=== PATIENT | female | born 1975 | race Caucasian/White ===

== ENCOUNTER 2022-03-01 16:37 | Emergency (ER) | payer OTHER ==
[2022-03-01] MEDS ORDERED: HYDROCODONE/APAP 7.5/325 MG TAB ONE (19:02)
[2022-03-01] MEDS ORDERED: IBUPROFEN 400 MG TAB ONE (19:02)
--- NOTE | 2022-03-01 19:15 | EDPHYS ---
Physician Documentation [facility] Name: Anya Mann Age: 46 yrs Sex: Female : 1975 Arrival Date: 03/01/2022 Time: 16:46 Bed 15 Private MD: ED Physician Odalis Lea HPI: 03/01 18:45 This 46 yrs old Female presents to ER via Wheelchair with complaints of Left Knee Pain. cp 18:45 The patient presents with pain, that is acute. The complaints affect the left knee. cp 18:45 Context: resulted from an unknown cause, the patient is not able to bear weight, must cp have assistance, Problem is a result from a previous injury: No. Onset: The symptoms/episode began/occurred today. 18:45 Associated signs and symptoms: Pertinent positives: felt a "pop". Treatment prior to cp arrival includes: no previous treatment. Patient reports she has been dealing with right knee pain and is scheduled to have surgery for torn meniscus in right knee. 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 - Social history:: Smoking status: Patient denies any tobacco usage or history of. ROS: 18:50 MS/extremity: Positive for pain, swelling, tenderness, of the left knee, painful ROM, cp Negative for deformity, paresthesias. 18:50 Constitutional: Negative for body aches, chills, fever, poor PO intake. cp 18:50 Respiratory: Negative for cough, shortness of breath, wheezing. 18:50 Abdomen/GI: Negative for abdominal pain, nausea, vomiting, and diarrhea. Exam: 18:55 Constitutional: The patient appears in no acute distress, alert, awake, cp non-diaphoretic, non-toxic, well developed, well nourished, overweight 18:55 Head/Face: Normocephalic, atraumatic. cp 18:55 Neck: ROM/movement: is normal, is supple, without pain, no range of motions limitations. 18:55 Cardiovascular: Rate: tachycardic. 18:55 Respiratory: the patient does not display signs of respiratory distress, Respirations: normal, no use of accessory muscles, labored breathing, is not present. 18:55 Abdomen/GI: Exam negative for discomfort, distension, guarding, Inspection: obese 18:55 Back: pain, is absent, ROM is normal. 18:55 Musculoskeletal/extremity: Extremities: noted in the left knee: pain, swelling, tenderness, ROM: limited passive range of motion due to pain, in the left knee, Perfusion: the extremity is normally perfused throughout, the left leg Sensation intact. DVT Exam: no swelling, no tenderness, negative Homans' sign noted on exam, no appreciated bluish discoloration, no erythema, no increased warmth. Vital Signs: 17:27 BP 138 / 89; Pulse 100; Resp 16; Temp 99.3(TE); Pulse Ox 100% ; Weight 103.87 kg; vg1 Height 5 ft. 3 in. (160.02 cm); Pain 10/10; 19:27 BP 142 / 86; Pulse 88; Resp 17 S; Pulse Ox 100% on R/A; lg3 17:27 Body Mass Index 40.56 (103.87 kg, 160.02 cm) vg1 Procedures: 19:20 Splinting: Splint applied to left knee using knee immobilizer, applied by nurse. cp Examined by me, post splint application: neurovascular intact, Patient tolerated well. MDM: 18:41 Patient medically screened. cp 19:03 Test interpretation: by ED physician or midlevel provider: xrays of left knee negative cp for fracture. 19:14 Data reviewed: vital signs, nurses notes, radiologic studies, plain films. cp 19:14 Differential diagnosis: dislocation, closed fracture, tendonitis. Counseling: I had a cp detailed discussion with the patient and/or guardian regarding: the historical points, exam findings, and any diagnostic results supporting the discharge/admit diagnosis, radiology results, the need for outpatient follow up, for definitive care, a orthopedic surgeon, to return to the emergency department if symptoms worsen or persist or if there are any questions or concerns that arise at home. Response to treatment: the patient's symptoms have mildly improved after treatment, and as a result, I will discharge patient. 03/01 17:33 Order name: Knee Left 3 View XRAY pm1 03/01 18:51 Order name: Knee Immobilizer; Complete Time: 19:21 cp 03/01 19:08 Order name: Crutches; Complete Time: 19:21 cp Administered Medications: 19:07 Not Given (Patient Refused): Hydrocodone-Acetaminophen (7.5 mg-325 mg) 1 tabs PO once [facility] 19:07 Drug: Ibuprofen 800 mg Route: PO; [facility] Disposition Summary: 03/01/22 19:14 Discharge Ordered Location: Home cp Problem: new cp Symptoms: have improved cp Condition: Stable cp Diagnosis - Pain in left knee cp Followup: cp - With: Madi Gaytan MD - When: 2 - 3 days - Reason: Recheck today's complaints Discharge Instructions: - Discharge Summary Sheet cp - Elastic Bandage and RICE Therapy cp - How to Use a Knee Immobilizer cp - Acute Knee Pain, Adult cp Forms: - Medication Reconciliation Form cp - Thank You Letter cp - Antibiotic Education cp - Prescription Opioid Use cp Prescriptions: - Diclofenac Sodium 75 mg Oral Tablet Sustained Release - take 1 tablet by ORAL route 2 times per day; 30 tablet; Refills: 0, Product cp Selection Permitted Signatures: Dispatcher [employer] EDMS Ab Diez PA PA cp Amber Altman, RN RN vg1 Therese Strong RN RN jh6 Corrections: (The following items were deleted from the chart) 03/02 19:06 03/01 18:45 This 46 yrs old Female presents to ER via Wheelchair with complaints of cp Knee Injury, - right. cp
--- NOTE | 2022-03-01 19:15 | ER ---
Nurse's Notes [facility] Name: Anya Mann Age: 46 yrs Sex: Female : 1975 Arrival Date: 03/01/2022 Time: 16:46 Bed 15 Private MD: Diagnosis: Pain in left knee Presentation: 03/01 17:27 Chief complaint: Patient states: Left knee pain that began about an hour ago and heard vg1 a pop; states currently has a torn meniscus in RIGHT knee and has been putting all weight on Left. Coronavirus screen: Vaccine status: Patient reports receiving the 1st dose of the Covid vaccine. Client denies travel out of the [place] in the last 14 days. Ebola Screen: Patient denies exposure to infectious person. Patient denies travel to an Ebola-affected area in the 21 days before illness onset. Initial Sepsis Screen: Does the patient meet any 2 criteria?. Initial Sepsis Screen: Does the patient have a suspected source of infection? No. Patient's initial sepsis screen is negative. Risk Assessment: Do you want to hurt yourself or someone else? Patient reports no desire to harm self or others. Onset of symptoms was March 01, 2022. 17:27 Method Of Arrival: Wheelchair vg1 17:27 Acuity: KIM 4 vg1 Triage Assessment: 17:29 General: Appears uncomfortable, Behavior is calm, cooperative. Pain: Complains of pain vg1 in left knee Pain currently is 10 out of 10 on a pain scale. Musculoskeletal: Range of motion: limited in left knee. 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 - Social history:: Smoking status: Patient denies any tobacco usage or history of. Screenin:48 Abuse screen: Denies threats or abuse. Denies injuries from another. Nutritional jh6 screening: No deficits noted. Tuberculosis screening: No symptoms or risk factors identified. Fall Risk Gait- Impaired (20 pts.). Assessment: 18:46 General: Appears in no apparent distress. uncomfortable, Behavior is calm, cooperative. jh6 18:46 Pain: Complains of pain in left knee Pain currently is 6 out of 10 on a pain scale. jh6 Quality of pain is described as burning, sharp, Pain began suddenly, 2 hours ago. Is continuous, Alleviated by rest, relaxation, Aggravated by increased activity, repositioning, Also complains of inability to perform activities of daily living. Musculoskeletal: Circulation, motion, and sensation intact. Capillary refill < 3 seconds, Range of motion: limited in left knee and right knee Swelling present in right knee Reports pain in right leg. 19:27 Reassessment: Patient appears in no apparent distress at this time. No changes from lg3 previously documented assessment. Patient and/or family updated on plan of care and expected duration. Pain level reassessed. Patient is alert, oriented x 3, equal unlabored respirations, skin warm/dry/pink. Vital Signs: 17:27 BP 138 / 89; Pulse 100; Resp 16; Temp 99.3(TE); Pulse Ox 100% ; Weight 103.87 kg; vg1 Height 5 ft. 3 in. (160.02 cm); Pain 10/10; 19:27 BP 142 / 86; Pulse 88; Resp 17 S; Pulse Ox 100% on R/A; lg3 17:27 Body Mass Index 40.56 (103.87 kg, 160.02 cm) vg1 ED Course: 16:46 Patient arrived in ED. bp1 17:04 Ab Diez PA is PHCP. cp 17:04 Odalis Lea MD is Attending Physician. cp 17:29 Triage completed. vg1 17:29 Arm band placed on. vg1 18:10 No provider procedures requiring assistance completed. jh6 18:40 Therese Strogn, JANETTE is Primary Nurse. jh6 18:44 Knee Left 3 View XRAY In Process Unspecified. EDMS 18:51 Call light in reach. Adult w/ patient. jh6 19:14 Madi Gaytan MD is Referral Physician. cp 19:27 Patient did not have IV access during this emergency room visit. lg3 Administered Medications: 19:07 Not Given (Patient Refused): Hydrocodone-Acetaminophen (7.5 mg-325 mg) 1 tabs PO once 6 19:07 Drug: Ibuprofen 800 mg Route: PO; jh6 Medication: 19:27 VIS not applicable for this client. lg3 Outcome: 19:14 Discharge ordered by . cp 19:26 Discharged to home via wheelchair, with crutches, with significant other. lg3 19:26 Condition: stable 19:26 Discharge instructions given to patient, Instructed on discharge instructions, follow up and referral plans. medication usage, Demonstrated understanding of instructions, follow-up care, medications, Prescriptions given X 1. 19:43 Patient left the ED. mw2 Signatures: Dispatcher [employer] EDMS Ab Diez PA PA cp Elmer Frausto mw2 Taryn Valerio, RN RN lg3 Amber Altman, RN RN 1 Eleni Post Jennifer, RN RN jh6 Corrections: (The following items were deleted from the chart) 18:48 18:46 General: Appears in no apparent distress. uncomfortable, Behavior is calm, jh6 cooperative, 6
--- NOTE | 2022-03-01 19:39 | RAD REPORT ---
EXAM DESCRIPTION: RAD - Knee Left 3 View - 03/01/2022 6:43 pm CLINICAL HISTORY: PAIN COMPARISON: No comparisons FINDINGS: No fracture, dislocation or periosteal reaction.No joint effusion seen. No joint space gabriel rowing. Mild spurring seen along the superior articular margin of the patella. No soft tissue abnorma lity. IMPRESSION: Negative left knee for acute bone or joint finding. Clinical concerns for internal derangement or occult bony injury could be further assessed with MR im aging.
[2022-03-01 20:12] VITALS: TEMP 99.3; O2SAT 100
[2022-03-01 20:13] VITALS: BP 142/86
== END 2022-03-01 19:43 | disposition home or self-care (01) ==
LOC: ER 16:37
DX: M25.562 Pain in left knee (principal); X58.XXXA Exposure to other specified factors, initial encounter; Z88.1 Allergy status to other antibiotic agents; Z91.013 Allergy to seafood; Z91.09 Other allergy status, other than to drugs and biological substances
CPT/HCPCS: 99283

== ENCOUNTER 2022-03-19 06:00 | Day surgery (SDC) | payer OTHER ==
[2022-03-16 13:22] LABS: Absolute Lymphocytes (CBC) 3.2 K/uL (0.7-4.9); Hematocrit 37.6 % (36.0-45.0); Lymphocytes % 26.2 % (15.3-44.8); MPV 8.9 fL (7.6-11.3); RBC Red Blood Cell Count 4.48 M/uL (3.86-4.86)
[2022-03-16 13:54] LABS: Potassium 3.5 mmol/L (3.5-5.1)
[2022-03-16 14:25] LABS: SARS-CoV-2 Antigen Rapid Res Negative (Negative)
[2022-03-19] MEDS ORDERED: CLINDAMYCIN 900MG/D5W 900 MG/50 ML IVPB IV ONE (06:13)
[2022-03-19] MEDS ORDERED: Ringers Lactate 1,000 ML IV ONE (06:13)
[2022-03-19] MEDS ORDERED: BUPIVACA 0.5%/EPI 0.0005%/PF 30 ML VIAL ONE (06:31)
[2022-03-19] MEDS ORDERED: NA CIT/CITRIC AC 30 ML ORAL UDC ONE (06:54)
[2022-03-19] MEDS ORDERED: MIDAZOLAM HCL 2 MG/2 ML INJ ONE (06:54)
[2022-03-19] MEDS ORDERED: ONDANSETRON 4 MG/2 ML VIAL ONE (06:54)
[2022-03-19] MEDS ORDERED: FENTANYL CITR 100 MCG/2 ML ONE ×2 (06:54→07:44)
[2022-03-19] MEDS ORDERED: propofoL 200 MG/20 ML VIAL IV ONE (06:54)
[2022-03-19] MEDS ORDERED: LIDOCAINE 2% MPF 5 ML VIAL ONE (06:54)
[2022-03-19] MEDS ORDERED: dexAMETHasone 10 MG/ML VIAL ONE (07:26)
[2022-03-19] MEDS ORDERED: KETOROLAC 30 MG/ML INJ ONE (07:27)
[2022-03-19] MEDS ORDERED: HYDROCODONE/APAP 10/325 TAB ONE (09:43)
[2022-03-19 09:46] VITALS: BP 123/76; TEMP 96.9; O2SAT 98
--- NOTE | 2022-03-19 09:47 | OP ---
Date of Procedure: 03/19/2022 Surgeon: Madi Gaytan MD Preoperative Diagnosis: Right knee pain with mechanical symptoms, probable meniscal tear. 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 3.Tear of the medial meniscus. 4.Abundant synovial tissue within the notch. Procedure: Right knee arthroscopy with debridement of medial meniscal tear and debridement of abunda nt synovial tissue within the notch. Estimated Blood Loss: Less than 10 cc. Complications: There were no complications. Pathology Specimens: No pathology specimens sent. Indications For Operation: Ms. Mann is a patient. I have been seeing for some time for her right knee. She has an MRI of her right knee, which demonstrates a meniscal tear and suffering from mechan ical type symptoms as well as continued pain despite conservative management. She was scheduled for surgery, but unfortunately fell onto her left side. She had an MRI ordered by another physician afte r that and it does show that she has a meniscal tear on that side as well, as well as recent injury, now having both knees being a problem. Decision was made to proceed with a left knee injection in th e office to allow for more easy recovery from her previously planned right knee arthroscopy. Risks, benefits, and alternatives to right knee arthroscopy were discussed with the patient including the po ssibility that she may have continued symptoms from arthritic changes as arthroscopic management is n ot good for degenerative chondral lesions; however, we would attempt to address mechanical symptoms a s well as the tear seen on MRI or any other pathology amenable to arthroscopic intervention. She say s she understands things as presented and wished to proceed. Description Of Procedure: The patient was taken to the operating room and placed in supine position. General anesthesia was obtained by staff. Following this, a well-padded tourniquet was placed on s uperior right thigh; however, was not used throughout the case. Following this, a standard superomed ial arthroscopy portal was then placed with liberation of approximately 20 cc of rather normal-appear ing synovial fluid. This was followed by placement of an inferolateral arthroscopy portal and the ar throscopic camera was placed within the joint atraumatically with 1 pass. The knee was then sequenti ally examined including the suprapatellar pouch, medial and lateral gutters, the medial compartment a s well as the notch and patellofemoral joint. Pertinent findings included grade 3 to 4 chondromalaci a of the patella with no obviously unstable flaps. Also seen, there was a grade 3 chondromalacia of the medial compartment. Also seen is a medial meniscal tear. There is abundant synovial tissue with in the notch. Following this, a standard inferomedial arthroscopy portal was then performed using a needle for localization to allow for a good purchase of both the notch as well as the medial meniscus . The medial meniscus was then debrided back to a firm hook stable, well contoured base. This was f ollowed by placement of debridement of the abundant synovial tissue within the notch. The lateral co mpartment was again investigated. Other than some very tiny fraying, there was no obvious pathology of the lateral compartment. Following this, the inferior arthroscopy portals are then stapled shut a nd the superomedial arthroscopy portal was then used to place a marking and this was then stapled. F ollowing this, she was placed in a well-padded sterile dressing, awakened, and taken to recovery in g ood condition. There were no complications. SE/MODL Voice ID: [id number] Report ID: [id number]
== END 2022-03-19 09:42 | disposition home or self-care (01) ==
LOC: OR 06:00
PROVIDERS: ATTEND Orthopaedic Surgery
PROC: 0SBC4ZZ Excision of Right Knee Joint, Percutaneous Endoscopic Approach (ICD-10-PCS; 2022-03-19)
PROC: 0SQC4ZZ Repair Right Knee Joint, Percutaneous Endoscopic Approach (ICD-10-PCS; principal; 2022-03-19 07:00)
DX: S83.241A Other tear of medial meniscus, current injury, right knee, initial encounter (principal); M25.561 Pain in right knee; M22.41 Chondromalacia patellae, right knee; Z20.822 Contact with and (suspected) exposure to COVID-19
CPT/HCPCS: 29882; 29875; 85025; 80048; 36415; 81025; 87811; J2704; J2250; J3010 ×2; J1100; J7120; J2405

== ENCOUNTER 2022-05-21 06:08 | Day surgery (SDC) | payer OTHER ==
[2022-05-18 15:11] LABS: Absolute Lymphocytes (CBC) 3.4 K/uL (0.7-4.9); Hematocrit 36.5 % (36.0-45.0); Lymphocytes % 22.3 % (15.3-44.8); MCV 84.1 fL (80-100); MPV 8.8 fL (7.6-11.3); RBC Red Blood Cell Count 4.34 M/uL (3.86-4.86)
[2022-05-18 15:58] LABS: SARS-CoV-2 Antigen Rapid Res Negative (Negative)
[2022-05-21] MEDS ORDERED: Ringers Lactate 1,000 ML IV ONE (06:39)
[2022-05-21] MEDS ORDERED: MIDAZOLAM HCL 2 MG/2 ML INJ ONE (06:48)
[2022-05-21] MEDS ORDERED: propofoL 200 MG/20 ML VIAL IV ONE (06:48)
[2022-05-21] MEDS ORDERED: FENTANYL CITR 100 MCG/2 ML ONE ×2 (06:48→07:31)
[2022-05-21] MEDS ORDERED: LIDOCAINE 1% MPF 5 ML VIAL ONE (06:48)
[2022-05-21] MEDS ORDERED: CLINDAMYCIN 900MG/D5W 900 MG/50 ML IVPB IV ONE (07:12)
[2022-05-21] MEDS ORDERED: dexAMETHasone 10 MG/ML VIAL ONE (07:32)
[2022-05-21] MEDS ORDERED: KETOROLAC 30 MG/ML INJ ONE (07:32)
[2022-05-21] MEDS ORDERED: ONDANSETRON 4 MG/2 ML VIAL ONE (07:33)
[2022-05-21] MEDS ORDERED: ALBUTEROL 2.5 MG/3 ML NEB SOL ONE (08:49)
[2022-05-21] MEDS ORDERED: CODEINE 30MG/APAP 300MG TAB ONE (09:37)
[2022-05-21 09:54] VITALS: BP 96/78; TEMP 97.4; O2SAT 100
--- NOTE | 2022-05-21 21:07 | OP ---
Date of Procedure: 05/21/2022 Surgeon: Madi Gaytan MD Preoperative Diagnosis: Left knee pain with mechanical symptoms, possible meniscal tear or tears. Postoperative Diagnoses: 1.Grade 3 chondromalacia of the medial compartment. 2.Grade 3 chondromalacia of the patellofemoral joint. 3.Tear of the posterior aspect of the medial meniscus. Procedure: Left knee arthroscopy with debridement of medial meniscal tear. Estimated Blood Loss: Less than 10 cc. Complications: There were no complications. Specimen: There were no pathology specimen sent. Indications For Operation: Ms. Mann is a 46-year-old female who unfortunately injured her left kne e. She has had continued pain and problems since that time accompanied by swelling and mechanical sy mptoms. She has had imaging, which demonstrated a probable meniscal tear and risks, benefits, and al ternatives of different methods of treating this have been discussed. She has been undergoing quite a bit of conservative management without relief. All of her questions have been answered today. Description Of Procedure: Patient was taken to the operating room and placed in the supine position. General anesthesia was obtained by staff. Following this, well-padded tourniquet was placed on sup erior left thigh; however, it was not used throughout the case. Left lower extremity was then preppe d and draped in usual fashion for procedure. Following this, a standard superior and medial arthrosc opy portal was then performed with liberation of approximately 60 cc of rather normal-appearing synov ial fluid. This followed by placement of inferolateral arthroscopy portal, which I made atraumatical ly with 1 pass. The knee was then sequentially examined through the suprapatellar pouch, medial and lateral gutters, medial and lateral compartments as well as notch of patellofemoral joint. Pertinent findings included significant synovial proliferation throughout and also with synovial proliferation within the joint. Also, seen is a grade 3 chondromalacia of the medial femoral condyle as well as m edial tibial plateau and grade 3 chondromalacia of the patellofemoral joint. The medial meniscus ashley eared to be intact until visualizing the very far aspect posteriorly. This did appear to be a tear, which appears to have mostly to be nondisplaceable, however, a standard medial arthroscopy portal was then performed using a needle for localization. We were able to probe this. There was a small nub, which did have some radial aspect, did not appear to be repairable and a combination of hand instrum ents and shaver were used to debride this back to a firm hook stable base. There may still be a smal l amount of meniscal changes posteriorly, however, definitely it was well contoured and we cannot dis place it. Attention was then turned to the lateral compartment where there was some very mild frayin g, which was touched up slightly, but no tear when palpated throughout with probe. Attention was the n turned back to the notch and a small amount of synovial tissue was removed from within the notch wh ich may be causing impingement with full extension. The ACL appears intact without damage. The knee was again examined and all above areas with no further pathology seen, which was amenable to arthros copic intervention. The inferior arthroscopy portals were then stapled shut. The superior medial ar throscopy portal was used for placement of Marcaine and this was then stapled. Patient was placed in a well-padded sterile dressing, awakened, and taken to recovery room in good condition. There were no complications. SE/MODL Voice ID: [id number] Report ID: [id number]
== END 2022-05-21 09:49 | disposition home or self-care (01) ==
LOC: OR 06:08
PROVIDERS: ATTEND Orthopaedic Surgery
PROC: 0SBD4ZZ Excision of Left Knee Joint, Percutaneous Endoscopic Approach (ICD-10-PCS; principal; 2022-05-21 07:00)
DX: S83.242A Other tear of medial meniscus, current injury, left knee, initial encounter (principal); M22.42 Chondromalacia patellae, left knee; Z20.822 Contact with and (suspected) exposure to COVID-19
CPT/HCPCS: 85025; 36415; 87811; 29877; J2704; J2001; J2250; J3010 ×2; J1100; J7120; J2405

== ENCOUNTER 2023-05-21 10:25 | Day surgery (SDC) | payer OTHER ==
[2023-05-18 11:26] LABS: Absolute Lymphocytes (CBC) 2.5 K/uL (0.7-4.9); Hematocrit 32.6 % (36.0-45.0); Lymphocytes % 26.3 % (15.3-44.8); MCV 81.1 fL (80-100); MPV 8.8 fL (7.6-11.3); Platelets 260 thou/uL (152-406); RBC Red Blood Cell Count 4.03 M/uL (3.86-4.86)
[2023-05-18 11:46] LABS: Potassium 3.4 mEq/L (3.5-5.1)
--- NOTE | 2023-05-19 14:58 | EKG ---
Test Date: 2023-05-18 Test Time: 11:11:37 Audiology Director: TOMY MEASUREMENT RESULTS: Intervals: Rate: 62 IA: 178 QRSD: 92 QT: 426 QTc: 432 [place]: P: 65 IA: 178 QRS: 42 T: 51 INTERPRETIVE STATEMENTS: Normal sinus rhythm Normal ECG Compared to ECG 01/29/2012 18:38:28 No significant changes Electronically Signed On 05-19-23 14:54:37 CDT by Jesús Martinez
[2023-05-21] MEDS ORDERED: Ringers Lactate 1,000 ML IV ONE (10:54)
[2023-05-21] MEDS ORDERED: MIDAZOLAM HCL 2 MG/2 ML INJ ONE (11:20)
[2023-05-21] MEDS ORDERED: propofoL 200 MG/20 ML VIAL IV ONE (11:20)
[2023-05-21] MEDS ORDERED: KETOROLAC 30 MG/ML INJ ONE (11:21)
[2023-05-21] MEDS ORDERED: LIDOCAINE 2% MPF 5 ML VIAL ONE (11:21)
[2023-05-21] MEDS ORDERED: FENTANYL CITR 100 MCG/2 ML ONE (11:21)
[2023-05-21] MEDS ORDERED: dexAMETHasone 10 MG/ML VIAL ONE (11:21)
[2023-05-21] MEDS ORDERED: ONDANSETRON 4 MG/2 ML VIAL ONE (11:22)
[2023-05-21] MEDS ORDERED: GLYCOPYRROLATE 0.2 MG/ML SYR ONE (11:58)
[2023-05-21] MEDS ORDERED: EPHEDRINE SULF 50 MG/ML VIAL ONE (11:59)
[2023-05-21] MEDS ORDERED: ESMOLOL HCL 0 ML IV ONE (12:01)
[2023-05-21 12:41] VITALS: O2SAT 97
--- NOTE | 2023-05-21 13:06 | OP ---
Surgeon: Madi Gaytan MD Preoperative Diagnosis: Right carpal tunnel syndrome. Postoperative Diagnosis: Right carpal tunnel syndrome. Procedure: Right open carpal tunnel release. Estimated Blood Loss: Less than 3 cc. Complications: There were no complications. Specimen: No pathology specimen sent. Indications For Operation: Ms. Mann is a patient who unfortunately suffered from symptoms related to carpal tunnel syndrome, which has been diagnosed by history and physical and NCV. Risks, benefits , and alternatives to different methods of treating this were discussed with the patient. She states she understands things as presented and wishes to proceed. Description Of Procedure: Patient was taken to the operating room and placed in supine position. Ge neral anesthesia was obtained by staff. Following this, a well-padded tourniquet was placed on super ior right arm. Right upper extremity was then prepped and draped in the usual sterile fashion for th e procedure. Following this, a standard incision was made which parallels the thenar crease with sli ght ulnar deviation of the most distal wrist crease. This was taken down carefully through skin only . Meticulous hemostasis being maintained using bipolar electrocautery. This leads to the palmar fas merrick, which was then divided longitudinally. Any obstructions of the transverse carpal ligament were then gently swept to the side and a small miri was made in the transverse carpal ligament which allow ed for visualization of the underlying nerve and carpal tunnel structures. This was then divided in a proximal to distal direction until there were no constricting bands. It was then divided in a dist al to proximal direction until there were no constricting bands. At no time were any sharp instrumen ts placed outside the direct operative field. At conclusion of the case, the nerve appeared to be in continuity. The tourniquet was then dropped. There was found to be no significant bleeding. Any b leeding there was, was controlled with bipolar electrocautery. This was followed by closure with a n ylon suture. She was placed in a well-padded sterile dressing, awakened, and taken to recovery room in good condition. /MODL Voice ID: [id number] Report ID: [id number]
[2023-05-21 13:16] VITALS: BP 127/81; TEMP 98.9
== END 2023-05-21 13:29 | disposition home or self-care (01) ==
LOC: OR 10:25
PROVIDERS: ATTEND Orthopaedic Surgery
PROC: 01N50ZZ Release Median Nerve, Open Approach (ICD-10-PCS; principal; 2023-05-21 11:30)
DX: G56.01 Carpal tunnel syndrome, right upper limb (principal); M25.541 Pain in joints of right hand
CPT/HCPCS: 93005; 85025; 80048; 36415; 64721; J2704; J2001; J2250; J3010; J1100; J2405; J7120

== ENCOUNTER 2023-06-28 10:50 | Emergency (ER) | payer OTHER ==
--- OUTSIDE RECORDS SUMMARY | 2023-06-28 10:57 | XMS REPORT | Continuity of Care Document ---
:1975 Author Organization [facility] t Address [address] [facility] [address] [place] [address] Care Team Providers Name Role Phone Kamilah Minayajulio Holley Primary Care Physician Zaheer Boss MD Attending Clinician [email or web address] Attending Clinician Unavailable Mechelle Sánchez Attending Clinician Unavailable LUISITO HANSON Attending Clinician Unavailable Doctor Unassigned, [place] Attending Clinician Unavailable ZAHEER BOSS Attending Clinician Unavailable ZAHEER BOSS Attending Clinician Unavailable Lab, Ang - Db Attending Clinician Unavailable HUBERT ALONSO Attending Clinician Unavailable Hubert Alonso MD Attending Clinician Alejandra Fall Attending Clinician ALEJANDRA HERNANDEZ Attending Clinician Unavailable [email or web address] Admitting Clinician Unavailable Mechelle Sánchez Admitting Clinician Unavailable ZAHEER BOSS Admitting Clinician Unavailable Payers Payer Name Policy Type Policy Number Effective Date Expiration Date [facility] [id number] 2022 CHOICE (HMO) 00:00:00 Problems Condition Condition Condition Status Onset Resolution Last Treating Co mments Source Name Details Category Date Date Treatment Clinician Date No known No known Disease Unive rs active active ity of problems problems [facility] Allergies, Adverse Reactions, Alerts Allergy Allergy Status Severity Reaction(s) Onset Inactive Treating Comm ents Source Name Type Date Date Clinician amoxicil DA Active U [facility] latia 6-30 [place] 00:00: d 00 [facility] IODINE DRUG Active Hives Univers INGREDI 8-31 ity of 00:00: [place] 00 [facility] Iodine Propensi Active Hives 0 Univers ty to 8-31 ity of adverse 00:00: [place] reaction 00 Medical s [place] AMOXICIL DRUG Active Hives 0 Univers LATIA INGREDI 4-25 ity of 00:00: [place] 00 Medical [place] Amoxicil Propensi Active Hives 0 Univer s latia ty to 4-25 ity of adverse 00:00: [place] reaction 00 Medical s [place] NO KNOWN Drug Active Univers ALLERGIE Class ity of S [facility] Social History Social Habit Start Date Stop Date Quantity Comments Source Gender identity Universit y of [facility] Sexual orientation Univer sity of [facility] Exposure to 2023-02-06 2023-02-16 Not sure [facility] SARS-CoV-2 (event) 00:00:00 06:22:00 [facility] Alcohol intake 2022-12-15 2022-12-15 Ex-drinker [facility] 00:00:00 00:00:00 (finding) [facility] History of Social 2022-11-06 2022-11-06 Univers ity of function 00:00:00 00:00:00 [facility] Tobacco use and 2022-05-06 2022-05-06 Smokeless Universit y of exposure 00:00:00 00:00:00 tobacco non-user [facility] Sex Assigned At [birth year] Universit y of 00:00:00 00:00:00 [facility] Smoking Status Start Date Stop Date Source Tobacco [facility] Medications Ordered Filled Start Stop Current Ordering Indication Dosage Frequency Signature Comments Components Source Medication Medication Date Date Medication? Clinician (SIG) Name Name cyclobenzap 2023-0 Yes 5mg Take 1 Univ ers rine 5 mg 6-13 tablet by ity o f tablet 10:20: mouth in [place] [address] the Medical morning. Branch cyclobenzap 2023-0 Yes 5mg Take 1 Univ ers rine 5 mg 6-13 tablet by ity o f tablet 10:20: mouth in [place] [address] the Medical morning. Branch cyclobenzap 2023-0 Yes 5mg Take 1 Univ ers rine 5 mg 6-13 tablet by ity o f tablet 10:20: mouth in [place] [address] the Medical morning. Branch cyclobenzap 2023-0 Yes 5mg Take 1 Univ ers rine 5 mg 6-13 tablet by ity o f tablet 10:20: mouth in [place] [address] the Medical morning. Branch cyclobenzap 2023-0 Yes 5mg Take 1 Univ ers rine 5 mg 6-13 tablet by ity o f tablet 10:20: mouth in [place] [address] the Medical morning. Branch cyclobenzap 2023-0 Yes 5mg Take 1 Univ ers rine 5 mg 6-13 tablet by ity o f tablet 10:20: mouth in [place] [address] the Medical morning. Branch cyclobenzap 2023-0 Yes 5mg Take 1 Univ ers rine 5 mg 6-13 tablet by ity o f tablet 10:20: mouth in [place] [address] the Medical morning. Branch cyclobenzap 2023-0 Yes 5mg Take 1 Univ ers rine 5 mg 6-13 tablet by ity o f tablet 10:20: mouth in [place] [address] the Medical morning. Branch gabapentin 2023-0 Yes [id number] 300mg Take 1 Univers 300 mg 6-13 capsule by ity of capsule 00:00: mouth in [place] [address] the Medical morning Branch and 1 capsule at noon and 1 capsule in the evening. gabapentin 2023-0 Yes [id number] 300mg Take 1 Univers 300 mg 6-13 capsule by ity of capsule 00:00: mouth in [address] morning [place] and 1 capsule at noon and 1 capsule in the evening. gabapentin 2023-0 Yes [id number] 300mg Take 1 Univers 300 mg 6-13 capsule by ity of capsule 00:00: mouth in [address] and 1 capsule at noon and 1 capsule in the evening. gabapentin 2023-0 Yes [id number] 300mg Take 1 Univers 300 mg 6-13 capsule by ity of capsule 00:00: mouth in [address] and 1 capsule at noon and 1 capsule in the evening. gabapentin 2023-0 Yes [id number] 300mg Take 1 Univers 300 mg 6-13 capsule by ity of capsule 00:00: mouth in [address] and 1 capsule at noon and 1 capsule in the evening. gabapentin 2023-0 Yes [id number] 300mg Take 1 Univers 300 mg 6-13 capsule by ity of capsule 00:00: mouth in [address] and 1 capsule at noon and 1 capsule in the evening. gabapentin 2023-0 Yes [id number] 300mg Take 1 Univers 300 mg 6-13 capsule by ity of capsule 00:00: mouth in [address] and 1 capsule at noon and 1 capsule in the evening. gabapentin 2023-0 Yes [id number] 300mg Take 1 Univers 300 mg 6-13 capsule by ity of capsule 00:00: mouth in [address] and 1 capsule at noon and 1 capsule in the evening. gabapentin 2023-0 Yes [id number] 300mg Take 3 Univers 100 mg 4-13 capsules ity of capsule 00:00: by mouth [place] 00 in the [facility] and 3 capsules at noon and 3 capsules in the evening. gabapentin 2023-0 Yes [id number] 300mg Take 3 Univers 100 mg 4-13 capsules ity of capsule 00:00: by mouth [place] 00 in the [facility] morning [place] and 3 capsules at noon and 3 capsules in the evening. gabapentin 2023-0 Yes [id number] 300mg Take 3 Univers 100 mg 4-13 capsules ity of capsule 00:00: by mouth [place] 00 in the [facility] morning [place] and 3 capsules at noon and 3 capsules in the evening. gabapentin 2023-0 Yes [id number] 300mg Take 3 Univers 100 mg 4-13 capsules ity of capsule 00:00: by mouth [place] 00 in the Medical morning Branch and 3 capsules at noon and 3 capsules in the evening. gabapentin 2022-0 Yes [id number] 300mg Take 3 Univers 100 mg 4-13 capsules ity of capsule 00:00: by mouth [place] 00 in the Medical morning Branch and 3 capsules at noon and 3 capsules in the evening. gabapentin 2022- No [id number] 300mg Take 3 Univers 100 mg 4-13 06-13 capsules ity of capsule 00:00: 00:00 by mouth [place] 00 :00 in the Medical morning Branch and 3 capsules at noon and 3 capsules in the evening. gabapentin 2022- No [id number] 300mg Take 3 Univers 100 mg 4-13 -13 capsules ity of capsule 00:00: 00:00 by mouth [place] 00 :00 in the Medical morning Branch and 3 capsules at noon and 3 capsules in the evening. gabapentin 2022-2022- No [id number] Take 1 Univers 100 mg 4-12 05-27 capsule by ity of capsule 00:00: 04:59 mouth 3 [place] 00 :00 (three) Medical times Branch daily for 7 days, THEN 2 capsules 3 (three) times daily for 7 days, THEN 3 capsules 3 (three) times daily for 30 days. gabapentin 2022- No [id number] Take 1 Univers 100 mg 4-12 -13 capsule by ity of capsule 00:00: 00:00 mouth 3 [place] 00 :00 (three) Medical times Branch daily for 7 days, THEN 2 capsules 3 (three) times daily for 7 days, THEN 3 capsules 3 (three) times daily for 30 days. gadobenate 2022- No [id number] .2mL/kg 20.42 mL Univers dimeglumine 10-2317 (0.2 mL/kg i ty of (MULTIHANCE 20:15: 20:01 ?102.1 [place] as -20 mL) 00 :00 kg), Medical injection Intravenou Bran ch 20.42 mL s, ONCE, 1 dose, On Wed10/23/22 at 1415, Routine eszopiclone Yes 3mg Take 3 mg U nivers 3 mg tablet -13 by mouth ity of 00:00: at [place] [address] bedtime. Medical Branch eszopiclone 2022-0 Yes 3mg Take 3 mg U nivers 3 mg tablet 2-13 by mouth ity of 00:00: at [place] [address] bedtime. Medical Branch eszopiclone 2022-0 Yes 3mg Take 3 mg U nivers 3 mg tablet 2-13 by mouth ity of 00:00: at [place] [address] bedtime. Medical Branch eszopiclone 2022-0 Yes 3mg Take 3 mg U nivers 3 mg tablet 2-13 by mouth ity of 00:00: at [place] [address] bedtime. Medical Branch eszopiclone 2022-0 Yes 3mg Take 3 mg U nivers 3 mg tablet 2-13 by mouth ity of 00:00: at [place] [address] bedtime. Medical Branch eszopiclone 2022-0 Yes 3mg Take 3 mg U nivers 3 mg tablet 2-13 by mouth ity of 00:00: at [place] [address] bedtime. Medical Branch eszopiclone 2022-0 Yes 3mg Take 3 mg U nivers 3 mg tablet 2-13 by mouth ity of 00:00: at [place] [address] bedtime. Medical Branch eszopiclone 2022-0 Yes 3mg Take 3 mg U nivers 3 mg tablet 2-13 by mouth ity of 00:00: at [place] [address] bedtime. Medical Branch eszopiclone 2022-0 Yes 3mg Take 3 mg U nivers 3 mg tablet 2-13 by mouth ity of 00:00: at [place] [address] bedtime. Medical Branch eszopiclone 2022-0 Yes 3mg Take 3 mg U nivers 3 mg tablet 2-13 by mouth ity of 00:00: at [place] [address] bedtime. Medical Branch eszopiclone 2022-0 Yes 3mg Take 3 mg U nivers 3 mg tablet 2-13 by mouth ity of 00:00: at [place] [address] bedtime. Medical Branch eszopiclone 3-0 Yes 3mg Take 3 mg U nivers 3 mg tablet 2-13 by mouth ity of 00:00: at [place] [address] bedtime. Medical Branch eszopiclone 3-0 Yes 3mg Take 3 mg U nivers 3 mg tablet 2-13 by mouth ity of 00:00: at [place] [address] bedtime. Medical Branch eszopiclone 2022-0 Yes 3mg Take 3 mg U nivers 3 mg tablet 2-13 by mouth ity of 00:00: at [place] [address] bedtime. Medical Branch eszopiclone 2022-0 Yes 3mg Take 3 mg U nivers 3 mg tablet 2-13 by mouth ity of 00:00: at [place] [address] bedtime. Medical Branch eszopiclone 2022-0 Yes 3mg Take 3 mg U nivers 3 mg tablet 2-13 by mouth ity of 00:00: at [place] [address] bedtime. Medical Branch eszopiclone 2022-0 Yes 3mg Take 3 mg U nivers 3 mg tablet 2-13 by mouth ity of 00:00: at [place] [address] bedtime. Medical Branch eszopiclone 2022-0 Yes 3mg Take 3 mg U nivers 3 mg tablet 2-13 by mouth ity of 00:00: at [place] [address] bedtime. Medical Branch eszopiclone 2022-0 Yes 3mg Take 3 mg U nivers 3 mg tablet 2-13 by mouth ity of 00:00: at [place] [address] bedtime. Medical Branch eszopiclone 2022-0 Yes 3mg Take 3 mg U nivers 3 mg tablet 2-13 by mouth ity of 00:00: at [place] [address] bedtime. Medical Branch eszopiclone 2022-0 Yes 3mg Take 3 mg U nivers 3 mg tablet 2-13 by mouth ity of 00:00: at [place] [address] bedtime. Medical Branch eszopiclone 2022-0 Yes 3mg Take 3 mg U nivers 3 mg tablet 2-13 by mouth ity of 00:00: at [place] [address] bedtime. Medical Branch eszopiclone 2022-0 Yes 3mg Take 3 mg U nivers 3 mg tablet 2-13 by mouth ity of 00:00: at [place] [address] bedtime. Medical Branch eszopiclone 2022-0 Yes 3mg Take 1 Univ ers 3 mg tablet 2-13 tablet by ity of 00:00: mouth at [place] [address] bedtime. Medical Branch eszopiclone 2022-0 Yes 3mg Take 1 Univ ers 3 mg tablet 2-13 tablet by ity of 00:00: mouth at [place] [address] bedtime. Medical Branch eszopiclone 2022-0 Yes 3mg Take 1 Univ ers 3 mg tablet 2-13 tablet by ity of 00:00: mouth at [place] [address] bedtime. Medical Branch eszopiclone 2022-0 Yes 3mg Take 1 Univ ers 3 mg tablet 2-13 tablet by ity of 00:00: mouth at [place] [address] bedtime. Medical Branch eszopiclone 2022-0 Yes 3mg Take 1 Univ ers 3 mg tablet 2-13 tablet by ity of 00:00: mouth at [place] [address] bedtime. Medical Branch eszopiclone 2022-0 Yes 3mg Take 1 Univ ers 3 mg tablet 2-13 tablet by ity of 00:00: mouth at [place] [address] bedtime. Medical Branch eszopiclone 2022-0 Yes 3mg Take 1 Univ ers 3 mg tablet 2-13 tablet by ity of 00:00: mouth at [place] [address] bedtime. Medical Branch eszopiclone 2022-0 Yes 3mg Take 1 Univ ers 3 mg tablet 2-13 tablet by ity of 00:00: mouth at [place] [address] bedtime. Medical Branch eszopiclone 2022-0 Yes 3mg Take 1 Univ ers 3 mg tablet 2-13 tablet by ity of 00:00: mouth at [place] [address] bedtime. Medical Branch eszopiclone 2022-0 Yes 3mg Take 1 Univ ers 3 mg tablet 2-13 tablet by ity of 00:00: mouth at [place] [address] bedtime. Medical Branch eszopiclone 2022-0 Yes 3mg Take 1 Univ ers 3 mg tablet 2-13 tablet by ity of 00:00: mouth at [place] [address] bedtime. Medical Branch eszopiclone 3-0 Yes 3mg Take 3 mg U nivers 3 mg tablet 2-13 by mouth ity of 00:00: at [place] [address] bedtime. Medical Branch dexmethylph 2023-0 Yes 5mg Take 5 mg U nivers enidate 5 2-01 by mouth ity of mg tablet 00:00: in the [place] 00 morning Medical and 5 mg Branch in the evening. dexmethylph 2023-0 Yes 5mg Take 5 mg U nivers enidate 5 2-01 by mouth ity of mg tablet 00:00: in the [place] 00 morning Medical and 5 mg Branch in the evening. dexmethylph 2023-0 Yes 5mg Take 5 mg U nivers enidate 5 2-01 by mouth ity of mg tablet 00:00: in the [place] morning Medical and 5 mg Branch in the evening. dexmethylph 2023-0 Yes 5mg Take 5 mg U nivers enidate 5 2-01 by mouth ity of mg tablet 00:00: in the [place] morning Medical and 5 mg Branch in the evening. dexmethylph 2023-0 Yes 5mg Take 5 mg U nivers enidate 5 2-01 by mouth ity of mg tablet 00:00: in the [place] morning Medical and 5 mg Branch in the evening. dexmethylph 2023-0 Yes 5mg Take 5 mg U nivers enidate 5 2-01 by mouth ity of mg tablet 00:00: in the [place] morning Medical and 5 mg Branch in the evening. dexmethylph 2023-0 Yes 5mg Take 5 mg U nivers enidate 5 2-01 by mouth ity of mg tablet 00:00: in the [place] morning Medical and 5 mg Branch in the evening. dexmethylph 2023-0 Yes 5mg Take 5 mg U nivers enidate 5 2-01 by mouth ity of mg tablet 00:00: in the [place] morning Medical and 5 mg Branch in the evening. dexmethylph 2023-0 Yes 5mg Take 5 mg U nivers enidate 5 2-01 by mouth ity of mg tablet 00:00: in the [place] morning Medical and 5 mg Branch in the evening. dexmethylph 2023-0 Yes 5mg Take 5 mg U nivers enidate 5 2-01 by mouth ity of mg tablet 00:00: in the [place] morning Medical and 5 mg Branch in the evening. dexmethylph 2023-0 Yes 5mg Take 5 mg U nivers enidate 5 2-01 by mouth ity of mg tablet 00:00: in the [place] morning Medical and 5 mg Branch in the evening. dexmethylph 2023-0 Yes 5mg Take 5 mg U nivers enidate 5 2-01 by mouth ity of mg tablet 00:00: in the [place] morning Medical and 5 mg Branch in the evening. dexmethylph 2023-0 Yes 5mg Take 5 mg U nivers enidate 5 2-01 by mouth ity of mg tablet 00:00: in the [place] morning Medical and 5 mg Branch in the evening. dexmethylph 2023-0 Yes 5mg Take 5 mg U nivers enidate 5 2-01 by mouth ity of mg tablet 00:00: in the [place] morning Medical and 5 mg Branch in the evening. dexmethylph 2023-0 Yes 5mg Take 5 mg U nivers enidate 5 2-01 by mouth ity of mg tablet 00:00: in the [place] morning Medical and 5 mg Branch in the evening. dexmethylph 2023-0 Yes 5mg Take 5 mg U nivers enidate 5 2-01 by mouth ity of mg tablet 00:00: in the [place] morning Medical and 5 mg Branch in the evening. dexmethylph 2023-0 Yes 5mg Take 5 mg U nivers enidate 5 2-01 by mouth ity of mg tablet 00:00: in the [place] morning Medical and 5 mg Branch in the evening. dexmethylph 2023-0 Yes 5mg Take 5 mg U nivers enidate 5 2-01 by mouth ity of mg tablet 00:00: in the [place] morning Medical and 5 mg Branch in the evening. dexmethylph 2023-0 Yes 5mg Take 5 mg U nivers enidate 5 2-01 by mouth ity of mg tablet 00:00: in the [place] morning Medical and 5 mg Branch in the evening. dexmethylph 2023-0 Yes 5mg Take 5 mg U nivers enidate 5 2-01 by mouth ity of mg tablet 00:00: in the [place] morning Medical and 5 mg Branch in the evening. dexmethylph 2023-0 Yes 5mg Take 5 mg U nivers enidate 5 2-01 by mouth ity of mg tablet 00:00: in the [place] morning Medical and 5 mg Branch in the evening. dexmethylph 2023-0 Yes 5mg Take 5 mg U nivers enidate 5 2-01 by mouth ity of mg tablet 00:00: in the [place] morning Medical and 5 mg Branch in the evening. dexmethylph 2023-0 Yes 5mg Take 5 mg U nivers enidate 5 2-01 by mouth ity of mg tablet 00:00: in the [place] morning Medical and 5 mg Branch in the evening. dexmethylph 2023-0 Yes 5mg Take 1 Univ ers enidate 5 2-01 tablet by ity o f mg tablet 00:00: [place] the Medical morning Branch and 1 tablet in the evening. dexmethylph 2023-0 Yes 5mg Take 1 Univ ers enidate 5 2-01 tablet by ity o f mg tablet 00:00: [place] the Medical morning Branch and 1 tablet in the evening. dexmethylph 2023-0 Yes 5mg Take 1 Univ ers enidate 5 2-01 tablet by ity o f mg tablet 00:00: [place] the Medical morning Branch and 1 tablet in the evening. dexmethylph 2023-0 Yes 5mg Take 1 Univ ers enidate 5 2-01 tablet by ity o f mg tablet 00:00: [place] 00 the Medical morning Branch and 1 tablet in the evening. dexmethylph 2023-0 Yes 5mg Take 1 Univ ers enidate 5 2-01 tablet by ity o f mg tablet 00:00: [place] 00 the Medical morning Branch and 1 tablet in the evening. dexmethylph 2023-0 Yes 5mg Take 1 Univ ers enidate 5 2-01 tablet by ity o f mg tablet 00:00: [place] 00 the Medical morning Branch and 1 tablet in the evening. dexmethylph 2023-0 Yes 5mg Take 1 Univ ers enidate 5 2-01 tablet by ity o f mg tablet 00:00: mouth [place] 00 the Medical morning Branch and 1 tablet in the evening. dexmethylph 2023-0 Yes 5mg Take 1 Univ ers enidate 5 2-01 tablet by ity o f mg tablet 00:00: mouth [place] 00 the Medical morning Branch and 1 tablet in the evening. dexmethylph 2023-0 Yes 5mg Take 1 Univ ers enidate 5 2-01 tablet by ity o f mg tablet 00:00: mouth [place] 00 the Medical morning Branch and 1 tablet in the evening. dexmethylph 2023-0 Yes 5mg Take 1 Univ ers enidate 5 2-01 tablet by ity o f mg tablet 00:00: mouth [place] 00 the Medical morning Branch and 1 tablet in the evening. dexmethylph 2023-0 Yes 5mg Take 1 Univ ers enidate 5 2-01 tablet by ity o f mg tablet 00:00: [place] 00 the Medical morning Branch and 1 tablet in the evening. dexmethylph 2022-0 Yes 5mg Take 5 mg U nivers enidate 5 2-01 by mouth ity of mg tablet 00:00: in the [place] 00 morning Medical and 5 mg Branch in the evening. montelukast Yes TAKE ONE Un brian 10 mg 1-05 (1) ity of tablet 00:00: TABLET(S) [place] 00 BY MOUTH Medical EVERY DAY Branch IN THE EVENING. montelukast 0 Yes TAKE ONE Un brian 10 mg 1-05 (1) ity of tablet 00:00: TABLET(S) [place] 00 BY MOUTH Medical EVERY DAY Branch IN THE EVENING. montelukast 2022-0 Yes TAKE ONE Un brian 10 mg 1-05 (1) ity of tablet 00:00: TABLET(S) [place] 00 BY MOUTH Medical EVERY DAY Branch IN THE EVENING. montelukast 0 Yes TAKE ONE Un brian 10 mg 1-05 (1) ity of tablet 00:00: TABLET(S) [place] 00 BY MOUTH Medical EVERY DAY Branch IN THE EVENING. montelukast 0 Yes TAKE ONE Un brian 10 mg 1-05 (1) ity of tablet 00:00: TABLET(S) [place] 00 BY MOUTH Medical EVERY DAY Branch IN THE EVENING. montelukast 2022-0 Yes TAKE ONE Un brian 10 mg 1-05 (1) ity of tablet 00:00: TABLET(S) [place] 00 BY MOUTH Medical EVERY DAY Branch IN THE EVENING. montelukast 2022-0 Yes TAKE ONE Un brian 10 mg 1-05 (1) ity of tablet 00:00: TABLET(S) [place] 00 BY MOUTH Medical EVERY DAY Branch IN THE EVENING. montelukast 2022-0 Yes TAKE ONE Un brian 10 mg 1-05 (1) ity of tablet 00:00: TABLET(S) [place] 00 BY MOUTH Medical EVERY DAY Branch IN THE EVENING. montelukast 2022-0 Yes TAKE ONE Un brian 10 mg 1-05 (1) ity of tablet 00:00: TABLET(S) [place] 00 BY MOUTH Medical EVERY DAY Branch IN THE EVENING. montelukast 2022-0 Yes TAKE ONE Un brian 10 mg 1-05 (1) ity of tablet 00:00: TABLET(S) [place] 00 BY MOUTH Medical EVERY DAY Branch IN THE EVENING. montelukast Yes TAKE ONE Un brian 10 mg 1-05 (1) ity of tablet 00:00: TABLET(S) [place] 00 BY MOUTH Medical EVERY DAY Branch IN THE EVENING. montelukast Yes TAKE ONE Un brian 10 mg 1-05 (1) ity of tablet 00:00: TABLET(S) [place] 00 BY MOUTH Medical EVERY DAY Branch IN THE EVENING. montelukast 0 Yes TAKE ONE Un brian 10 mg 1-05 (1) ity of tablet 00:00: TABLET(S) [place] 00 BY MOUTH Medical EVERY DAY Branch IN THE EVENING. montelukast 0 Yes TAKE ONE Un brian 10 mg 1-05 (1) ity of tablet 00:00: TABLET(S) [place] 00 BY MOUTH Medical EVERY DAY Branch IN THE EVENING. montelukast Yes TAKE ONE Un brian 10 mg 1-05 (1) ity of tablet 00:00: TABLET(S) [place] 00 BY MOUTH Medical EVERY DAY Branch IN THE EVENING. montelukast Yes TAKE ONE Un brian 10 mg 1-05 (1) ity of tablet 00:00: TABLET(S) [place] 00 BY MOUTH Medical EVERY DAY Branch IN THE EVENING. montelukast 0 Yes TAKE ONE Un brian 10 mg 1-05 (1) ity of tablet 00:00: TABLET(S) [place] 00 BY MOUTH Medical EVERY DAY Branch IN THE EVENING. montelukast Yes TAKE ONE Un brian 10 mg 1-05 (1) ity of tablet 00:00: TABLET(S) [place] 00 BY MOUTH Medical EVERY DAY Branch IN THE EVENING. montelukast 0 Yes TAKE ONE Un brian 10 mg 1-05 (1) ity of tablet 00:00: TABLET(S) [place] 00 BY MOUTH Medical EVERY DAY Branch IN THE EVENING. montelukast 0 Yes TAKE ONE Un brian 10 mg 1-05 (1) ity of tablet 00:00: TABLET(S) [place] 00 BY MOUTH Medical EVERY DAY Branch IN THE EVENING. montelukast 0 Yes TAKE ONE Un brian 10 mg 1-05 (1) ity of tablet 00:00: TABLET(S) [place] 00 BY MOUTH Medical EVERY DAY Branch IN THE EVENING. montelukast Yes TAKE ONE Un [place]rian 10 mg 1-05 (1) ity of tablet 00:00: TABLET(S) [place] 00 BY MOUTH Medical EVERY DAY Branch IN THE EVENING. montelukast Yes TAKE ONE Un brian 10 mg 1-05 (1) ity of tablet 00:00: TABLET(S) [place] 00 BY MOUTH Medical EVERY DAY Branch IN THE EVENING. montelukast Yes TAKE ONE Un brian 10 mg 1-05 (1) ity of tablet 00:00: TABLET(S) [place] 00 BY MOUTH Medical EVERY DAY Branch IN THE EVENING. montelukast Yes TAKE ONE Un [place]rian 10 mg 1-05 (1) ity of tablet 00:00: TABLET(S) [place] 00 BY MOUTH Medical EVERY DAY Branch IN THE EVENING. montelukast Yes TAKE ONE Un brian 10 mg 1-05 (1) ity of tablet 00:00: TABLET(S) [place] 00 BY MOUTH Medical EVERY DAY Branch IN THE EVENING. montelukast Yes TAKE ONE Un brain 10 mg 1-05 (1) ity of tablet 00:00: TABLET(S) [place] 00 BY MOUTH Medical EVERY DAY Branch IN THE EVENING. montelukast Yes TAKE ONE Un brian 10 mg 1-05 (1) ity of tablet 00:00: TABLET(S) [place] 00 BY MOUTH Medical EVERY DAY Branch IN THE EVENING. montelukast Yes TAKE ONE Un brian 10 mg 1-05 (1) ity of tablet 00:00: TABLET(S) [place] 00 BY MOUTH Medical EVERY DAY Branch IN THE EVENING. montelukast Yes TAKE ONE Un [place]rian 10 mg 1-05 (1) ity of tablet 00:00: TABLET(S) [place] 00 BY MOUTH Medical EVERY DAY Branch IN THE EVENING. montelukast 0 Yes TAKE ONE Un [place]rian 10 mg 1-05 (1) ity of tablet 00:00: TABLET(S) [place] 00 BY MOUTH Medical EVERY DAY Branch IN THE EVENING. montelukast 0 Yes TAKE ONE Un [place]rian 10 mg 1-05 (1) ity of tablet 00:00: TABLET(S) [place] 00 BY MOUTH Medical EVERY DAY Branch IN THE EVENING. montelukast Yes TAKE ONE Un [place]rian 10 mg 1-05 (1) ity of tablet 00:00: TABLET(S) [place] 00 BY MOUTH Medical EVERY DAY Branch IN THE EVENING. montelukast Yes TAKE ONE Un [place]rian 10 mg 1-05 (1) ity of tablet 00:00: TABLET(S) [place] 00 BY MOUTH Medical EVERY DAY Branch IN THE EVENING. montelukast Yes TAKE ONE Un brian 10 mg 1-05 (1) ity of tablet 00:00: TABLET(S) [place] 00 BY MOUTH Medical EVERY DAY Branch IN THE EVENING. methylpheni 2022- No TAKE ONE U nivers date HCl 20 -14 (1) ity of mg tablet 00:00: 00:00 TABLET(S) [place] 00 :00 BY MOUTH Medical TWICE A Branch DAY FOR ADD. methylpheni 2022- No TAKE ONE U nivers date HCl 20 09-08 (1) ity of mg tablet 00:00: 00:00 TABLET(S) [place] :00 BY MOUTH Medical TWICE A Branch DAY FOR ADD. VENTOLIN 2021-09 Yes INHALE ONE Uni vers HFA 90 2-21 (1) PUFF ity of mcg/actuati 00:00: BY MOUTH [place] on inhaler 00 EVERY 4 Medica l HOURS Branch NEEDED. ADVAIR 2021-09 Yes INHALE ONE Unive rs DISKUS 2-21 (1) PUFF ity of 250-50 00:00: BY MOUTH [place] mcg/dose 00 TWICE Medical inhalation DAILY. Branch disk VENTOLIN 2021-09 Yes INHALE ONE Uni vers HFA 90 2-21 (1) PUFF ity of mcg/actuati 00:00: BY MOUTH [place] inhaler 00 EVERY 4 Medica l HOURS Branch NEEDED. ADVAIR 2021-09 Yes INHALE ONE Unive rs DISKUS 2-21 (1) PUFF ity of 250-50 00:00: BY MOUTH [place] mcg/dose 00 TWICE Medical inhalation DAILY. Branch disk VENTOLIN 2021-09 Yes INHALE ONE Uni vers HFA 90 2-21 (1) PUFF ity of mcg/actuati 00:00: BY MOUTH [place] inhaler 00 EVERY 4 Medica l HOURS Branch NEEDED. ADVAIR 2021-09 Yes INHALE ONE Unive rs DISKUS 2-21 (1) PUFF ity of 250-50 00:00: BY MOUTH [place] mcg/dose 00 TWICE Medical inhalation DAILY. Branch disk VENTOLIN 2021-09 Yes INHALE ONE Uni vers HFA 90 2-21 (1) PUFF ity of mcg/actuati 00:00: BY MOUTH [place] inhaler 00 EVERY 4 Medica l HOURS Branch NEEDED. ADVAIR 2021-09 Yes INHALE ONE Unive rs DISKUS 2-21 (1) PUFF ity of 250-50 00:00: BY MOUTH [place] mcg/dose 00 TWICE Medical inhalation DAILY. Branch disk VENTOLIN 2021-09 Yes INHALE ONE Uni vers HFA 90 2-21 (1) PUFF ity of mcg/actuati 00:00: BY MOUTH [place] inhaler 00 EVERY 4 Medica l HOURS Branch NEEDED. ADVAIR 2021-09 Yes INHALE ONE Unive rs DISKUS 2-21 (1) PUFF ity of 250-50 00:00: BY MOUTH [place] mcg/dose 00 TWICE Medical inhalation DAILY. Branch disk VENTOLIN 2021-09 Yes INHALE ONE Uni vers HFA 90 2-21 (1) PUFF ity of mcg/actuati 00:00: BY MOUTH [place] inhaler 00 EVERY 4 Medica l HOURS Branch NEEDED. ADVAIR 2021-09 Yes INHALE ONE Unive rs DISKUS 2-21 (1) PUFF ity of 250-50 00:00: BY MOUTH [place] mcg/dose 00 TWICE Medical inhalation DAILY. Branch disk VENTOLIN 2021-09 Yes INHALE ONE Uni vers HFA 90 2-21 (1) PUFF ity of mcg/actuati 00:00: BY MOUTH [place] inhaler 00 EVERY 4 Medica l HOURS Branch NEEDED. ADVAIR 2021-09 Yes INHALE ONE Unive rs DISKUS 2-21 (1) PUFF ity of 250-50 00:00: BY MOUTH [place] mcg/dose 00 TWICE Medical inhalation DAILY. Branch disk VENTOLIN 2021-09 Yes INHALE ONE Uni vers HFA 90 2-21 (1) PUFF ity of mcg/actuati 00:00: BY MOUTH [place] inhaler 00 EVERY 4 Medica l HOURS Branch NEEDED. ADVAIR 2021-09 Yes INHALE ONE Unive rs DISKUS 2-21 (1) PUFF ity of 250-50 00:00: BY MOUTH [place] mcg/dose 00 TWICE Medical inhalation DAILY. Branch disk VENTOLIN 2021-09 Yes INHALE ONE Uni vers HFA 90 2-21 (1) PUFF ity of mcg/actuati 00:00: BY MOUTH [place] inhaler 00 EVERY 4 Medica l HOURS Branch NEEDED. ADVAIR 2021-09 Yes INHALE ONE Unive rs DISKUS 2-21 (1) PUFF ity of 250-50 00:00: BY MOUTH [place] mcg/dose 00 TWICE Medical inhalation DAILY. Branch disk VENTOLIN 2021-09 Yes INHALE ONE Uni vers HFA 90 2-21 (1) PUFF ity of mcg/actuati 00:00: BY MOUTH [place] inhaler 00 EVERY 4 Medica l HOURS Branch NEEDED. ADVAIR 2021-09 Yes INHALE ONE Unive rs DISKUS 2-21 (1) PUFF ity of 250-50 00:00: BY MOUTH [place] mcg/dose 00 TWICE Medical inhalation DAILY. Branch disk VENTOLIN 2021-09 Yes INHALE ONE Uni vers HFA 90 2-21 (1) PUFF ity of mcg/actuati 00:00: BY MOUTH [place] inhaler 00 EVERY 4 Medica l HOURS Branch NEEDED. ADVAIR 2021-09 Yes INHALE ONE Unive rs DISKUS 2-21 (1) PUFF ity of 250-50 00:00: BY MOUTH [place] mcg/dose 00 TWICE Medical inhalation DAILY. Branch disk VENTOLIN 2021-09 Yes INHALE ONE Uni vers HFA 90 2-21 (1) PUFF ity of mcg/actuati 00:00: BY MOUTH [place] inhaler 00 EVERY 4 Medica l HOURS Branch NEEDED. ADVAIR 2021-09 Yes INHALE ONE Unive rs DISKUS 2-21 (1) PUFF ity of 250-50 00:00: BY MOUTH [place] mcg/dose 00 TWICE Medical inhalation DAILY. Branch disk VENTOLIN 2021-09 Yes INHALE ONE Uni vers HFA 90 2-21 (1) PUFF ity of mcg/actuati 00:00: BY MOUTH [place] inhaler 00 EVERY 4 Medica l HOURS Branch NEEDED. ADVAIR 2021-09 Yes INHALE ONE Unive rs DISKUS 2-21 (1) PUFF ity of 250-50 00:00: BY MOUTH [place] mcg/dose 00 TWICE Medical inhalation DAILY. Branch disk VENTOLIN 2021-09 Yes INHALE ONE Uni vers HFA 90 2-21 (1) PUFF ity of mcg/actuati 00:00: BY MOUTH [place] inhaler 00 EVERY 4 Medica l HOURS Branch NEEDED. ADVAIR 2021-09 Yes INHALE ONE Unive rs DISKUS 2-21 (1) PUFF ity of 250-50 00:00: BY MOUTH [place] mcg/dose 00 TWICE Medical inhalation DAILY. Branch disk VENTOLIN 2021-09 Yes INHALE ONE Uni vers HFA 90 2-21 (1) PUFF ity of mcg/actuati 00:00: BY MOUTH [place] inhaler 00 EVERY 4 Medica l HOURS Branch NEEDED. ADVAIR 2021-09 Yes INHALE ONE Unive rs DISKUS 2-21 (1) PUFF ity of 250-50 00:00: BY MOUTH [place] mcg/dose 00 TWICE Medical inhalation DAILY. Branch disk VENTOLIN 2021-09 Yes INHALE ONE Uni vers HFA 90 2-21 (1) PUFF ity of mcg/actuati 00:00: BY MOUTH [place] inhaler 00 EVERY 4 Medica l HOURS Branch NEEDED. ADVAIR 2021-09 Yes INHALE ONE Unive rs DISKUS 2-21 (1) PUFF ity of 250-50 00:00: BY MOUTH [place] mcg/dose 00 TWICE Medical inhalation DAILY. Branch disk VENTOLIN 2021-09 Yes INHALE ONE Uni vers HFA 90 2-21 (1) PUFF ity of mcg/actuati 00:00: BY MOUTH [place] inhaler 00 EVERY 4 Medica l HOURS Branch NEEDED. ADVAIR 2021-09 Yes INHALE ONE Unive rs DISKUS 2-21 (1) PUFF ity of 250-50 00:00: BY MOUTH [place] mcg/dose 00 TWICE Medical inhalation DAILY. Branch disk VENTOLIN 2021-09 Yes INHALE ONE Uni vers HFA 90 2-21 (1) PUFF ity of mcg/actuati 00:00: BY MOUTH [place] inhaler 00 EVERY 4 Medica l HOURS Branch NEEDED. ADVAIR 2021-09 Yes INHALE ONE Unive rs DISKUS 2-21 (1) PUFF ity of 250-50 00:00: BY MOUTH [place] mcg/dose 00 TWICE Medical inhalation DAILY. Branch disk VENTOLIN 2021-09 Yes INHALE ONE Uni vers HFA 90 2-21 (1) PUFF ity of mcg/actuati 00:00: BY MOUTH [place] inhaler 00 EVERY 4 Medica l HOURS Branch NEEDED. ADVAIR 2021-09 Yes INHALE ONE Unive rs DISKUS 2-21 (1) PUFF ity of 250-50 00:00: BY MOUTH [place] mcg/dose 00 TWICE Medical inhalation DAILY. Branch disk VENTOLIN 2021-09 Yes INHALE ONE Uni vers HFA 90 2-21 (1) PUFF ity of mcg/actuati 00:00: BY MOUTH [place] inhaler 00 EVERY 4 Medica l HOURS Branch NEEDED. ADVAIR 2021-09 Yes INHALE ONE Unive rs DISKUS 2-21 (1) PUFF ity of 250-50 00:00: BY MOUTH [place] mcg/dose 00 TWICE Medical inhalation DAILY. Branch disk VENTOLIN 2021-09 Yes INHALE ONE Uni vers HFA 90 2-21 (1) PUFF ity of mcg/actuati 00:00: BY MOUTH [place] inhaler 00 EVERY 4 Medica l HOURS Branch NEEDED. ADVAIR 2021-09 Yes INHALE ONE Unive rs DISKUS 2-21 (1) PUFF ity of 250-50 00:00: BY MOUTH [place] mcg/dose 00 TWICE Medical inhalation DAILY. Branch disk VENTOLIN 2021-09 Yes INHALE ONE Uni vers HFA 90 2-21 (1) PUFF ity of mcg/actuati 00:00: BY MOUTH [place] inhaler 00 EVERY 4 Medica l HOURS Branch NEEDED. ADVAIR 2021-09 Yes INHALE ONE Unive rs DISKUS 2-21 (1) PUFF ity of 250-50 00:00: BY MOUTH [place] mcg/dose 00 TWICE Medical inhalation DAILY. Branch disk VENTOLIN 2021-09 Yes INHALE ONE Uni vers HFA 90 2-21 (1) PUFF ity of mcg/actuati 00:00: BY MOUTH [place] inhaler 00 EVERY 4 Medica l HOURS Branch NEEDED. ADVAIR 2021-09 Yes INHALE ONE Unive rs DISKUS 2-21 (1) PUFF ity of 250-50 00:00: BY MOUTH [place] mcg/dose 00 TWICE Medical inhalation DAILY. Branch disk VENTOLIN 2021-09 Yes INHALE ONE Uni vers HFA 90 2-21 (1) PUFF ity of mcg/actuati 00:00: BY MOUTH [place] inhaler 00 EVERY 4 Medica l HOURS Branch NEEDED. ADVAIR 2021-09 Yes INHALE ONE Unive rs DISKUS 2-21 (1) PUFF ity of 250-50 00:00: BY MOUTH [place] mcg/dose 00 TWICE Medical inhalation DAILY. Branch disk VENTOLIN 2021-09 Yes INHALE ONE Uni vers HFA 90 2-21 (1) PUFF ity of mcg/actuati 00:00: BY MOUTH [place] inhaler 00 EVERY 4 Medica l HOURS Branch NEEDED. ADVAIR 2021-09 Yes INHALE ONE Unive rs DISKUS 2-21 (1) PUFF ity of 250-50 00:00: BY MOUTH [place] mcg/dose 00 TWICE Medical inhalation DAILY. Branch disk VENTOLIN 2021-09 Yes INHALE ONE Uni vers HFA 90 2-21 (1) PUFF ity of mcg/actuati 00:00: BY MOUTH [place] inhaler 00 EVERY 4 Medica l HOURS Branch NEEDED. ADVAIR 2021-09 Yes INHALE ONE Unive rs DISKUS 2-21 (1) PUFF ity of 250-50 00:00: BY MOUTH [place] mcg/dose 00 TWICE Medical inhalation DAILY. Branch disk VENTOLIN 2021-09 Yes INHALE ONE Uni vers HFA 90 2-21 (1) PUFF ity of mcg/actuati 00:00: BY MOUTH [place] inhaler 00 EVERY 4 Medica l HOURS Branch NEEDED. ADVAIR 2021-09 Yes INHALE ONE Unive rs DISKUS 2-21 (1) PUFF ity of 250-50 00:00: BY MOUTH [place] mcg/dose 00 TWICE Medical inhalation DAILY. Branch disk VENTOLIN 2021-09 Yes INHALE ONE Uni vers HFA 90 2-21 (1) PUFF ity of mcg/actuati 00:00: BY MOUTH [place] inhaler 00 EVERY 4 Medica l HOURS Branch NEEDED. ADVAIR 2021-09 Yes INHALE ONE Unive rs DISKUS 2-21 (1) PUFF ity of 250-50 00:00: BY MOUTH [place] mcg/dose 00 TWICE Medical inhalation DAILY. Branch disk VENTOLIN 2021-09 Yes INHALE ONE Uni vers HFA 90 2-21 (1) PUFF ity of mcg/actuati 00:00: BY MOUTH [place] inhaler 00 EVERY 4 Medica l HOURS Branch NEEDED. ADVAIR 2021-09 Yes INHALE ONE Unive rs DISKUS 2-21 (1) PUFF ity of 250-50 00:00: BY MOUTH [place] mcg/dose 00 TWICE Medical inhalation DAILY. Branch disk VENTOLIN 2021-09 Yes INHALE ONE Uni vers HFA 90 2-21 (1) PUFF ity of mcg/actuati 00:00: BY MOUTH [place] inhaler 00 EVERY 4 Medica l HOURS Branch NEEDED. ADVAIR 2021-09 Yes INHALE ONE Unive rs DISKUS 2-21 (1) PUFF ity of 250-50 00:00: BY MOUTH [place] mcg/dose 00 TWICE Medical inhalation DAILY. Branch disk VENTOLIN 2021-09 Yes INHALE ONE Uni vers HFA 90 2-21 (1) PUFF ity of mcg/actuati 00:00: BY MOUTH [place] inhaler 00 EVERY 4 Medica l HOURS Branch NEEDED. ADVAIR 2021-09 Yes INHALE ONE Unive rs DISKUS 2-21 (1) PUFF ity of 250-50 00:00: BY MOUTH [place] mcg/dose 00 TWICE Medical inhalation DAILY. Branch disk VENTOLIN 2021-09 Yes INHALE ONE Uni vers HFA 90 2-21 (1) PUFF ity of mcg/actuati 00:00: BY MOUTH [place] inhaler 00 EVERY 4 Medica l HOURS Branch NEEDED. ADVAIR 2021-09 Yes INHALE ONE Unive rs DISKUS 2-21 (1) PUFF ity of 250-50 00:00: BY MOUTH [place] mcg/dose 00 TWICE Medical inhalation DAILY. Branch disk VENTOLIN 2021-09 Yes INHALE ONE Uni vers HFA 90 2-21 (1) PUFF ity of mcg/actuati 00:00: BY MOUTH [place] inhaler 00 EVERY 4 Medica l HOURS Branch NEEDED. ADVAIR 2021-09 Yes INHALE ONE Unive rs DISKUS 2-21 (1) PUFF ity of 250-50 00:00: BY MOUTH [place] mcg/dose 00 TWICE Medical inhalation DAILY. Branch disk VENTOLIN 2021-09 Yes INHALE ONE Uni vers HFA 90 2-21 (1) PUFF ity of mcg/actuati 00:00: BY MOUTH [place] inhaler 00 EVERY 4 Medica l HOURS Branch NEEDED. ADVAIR 2021-09 Yes INHALE ONE Unive rs DISKUS 2-21 (1) PUFF ity of 250-50 00:00: BY MOUTH [place] mcg/dose 00 TWICE Medical inhalation DAILY. Branch disk VENTOLIN 2021-09 Yes INHALE ONE Uni vers HFA 90 2-21 (1) PUFF ity of mcg/actuati 00:00: BY MOUTH [place] inhaler 00 EVERY 4 Medica l HOURS Branch NEEDED. ADVAIR 2021-09 Yes INHALE ONE Unive rs DISKUS 2-21 (1) PUFF ity of 250-50 00:00: BY MOUTH [place] mcg/dose 00 TWICE Medical inhalation DAILY. Branch disk dexAMETHaso 2021-09 Yes TAKE ONE Un brian ne 2 mg 2-20 (1) ity of tablet 00:00: TABLET(S) 00 BY MOUTH Medical ONCE A DAY Branch NEEDED. dexAMETHaso 2021-09 Yes TAKE ONE Un brian ne 2 mg 2-20 (1) ity of tablet 00:00: TABLET(S) [place] 00 BY MOUTH Medical ONCE A DAY Branch NEEDED. dexAMETHaso 2021-09 Yes TAKE ONE Un brian ne 2 mg 2-20 (1) ity of tablet 00:00: TABLET(S) [place] 00 BY MOUTH Medical ONCE A DAY Branch NEEDED. dexAMETHaso 2021-09 Yes TAKE ONE Un brian ne 2 mg 2-20 (1) ity of tablet 00:00: TABLET(S) [place] 00 BY MOUTH Medical ONCE A DAY Branch NEEDED. dexAMETHaso 2021-09 Yes TAKE ONE Un brian ne 2 mg 2-20 (1) ity of tablet 00:00: TABLET(S) [place] 00 BY MOUTH Medical ONCE A DAY Branch NEEDED. dexAMETHaso 2021-09 Yes TAKE ONE Un b[facility] ne 2 mg 2-20 (1) ity of tablet 00:00: TABLET(S) [place] 00 BY MOUTH Medical ONCE A DAY Branch NEEDED. dexAMETHaso 2021-09 Yes TAKE ONE Un [facility] ne 2 mg 2-20 (1) ity of tablet 00:00: TABLET(S) [place] 00 BY MOUTH Medical ONCE A DAY Branch NEEDED. dexAMETHaso 2021-09 Yes TAKE ONE Un [facility] ne 2 mg 2-20 (1) ity of tablet 00:00: TABLET(S) [place] 00 BY MOUTH Medical ONCE A DAY Branch NEEDED. dexAMETHaso 2021-09 Yes TAKE ONE Un [facility] ne 2 mg 2-20 (1) ity of tablet 00:00: TABLET(S) [place] 00 BY MOUTH Medical ONCE A DAY Branch NEEDED. dexAMETHaso 2021-09 Yes TAKE ONE [facility] ne 2 mg 2-20 (1) ity of tablet 00:00: TABLET(S) [place] 00 BY MOUTH Medical ONCE A DAY Branch NEEDED. dexAMETHaso 2021-09 Yes TAKE ONE [facility] ne 2 mg 2-20 (1) ity of tablet 00:00: TABLET(S) [place] 00 BY MOUTH Medical ONCE A DAY Branch NEEDED. dexAMETHaso 2021-09 Yes TAKE ONE [facility] ne 2 mg 2-20 (1) ity of tablet 00:00: TABLET(S) [place] 00 BY MOUTH Medical ONCE A DAY Branch NEEDED. dexAMETHaso 2021-09 Yes TAKE ONE [facility] ne 2 mg 2-20 (1) ity of tablet 00:00: TABLET(S) [place] 00 BY MOUTH Medical ONCE A DAY Branch NEEDED. dexAMETHaso 2021-09 Yes TAKE ONE [facility] ne 2 mg 2-20 (1) ity of tablet 00:00: TABLET(S) [place] 00 BY MOUTH Medical ONCE A DAY Branch NEEDED. dexAMETHaso 2021-09 Yes TAKE ONE [facility] 2 mg 2-20 (1) ity of tablet 00:00: TABLET(S) [place] 00 BY MOUTH Medical ONCE A DAY Branch NEEDED. dexAMETHaso 2021-09 Yes TAKE ONE [facility] 2 mg 2-20 (1) ity of tablet 00:00: TABLET(S) [place] 00 BY MOUTH Medical ONCE A DAY Branch NEEDED. dexAMETHaso 2021-09 Yes TAKE ONE [facility] 2 mg 2-20 (1) ity of tablet 00:00: TABLET(S) [place] 00 BY MOUTH Medical ONCE A DAY Branch NEEDED. dexAMETHaso 2021-09 Yes TAKE ONE [facility] 2 mg 2-20 (1) ity of tablet 00:00: TABLET(S) [place] 00 BY MOUTH Medical ONCE A DAY Branch NEEDED. dexAMETHaso 2021-09 Yes TAKE ONE [facility] 2 mg 2-20 (1) ity of tablet 00:00: TABLET(S) 00 BY MOUTH Medical ONCE A DAY Branch NEEDED. dexAMETHaso 2021-09 Yes TAKE ONE [facility] [place] [facility] 2 mg 2-20 (1) ity of tablet 00:00: TABLET(S) 00 BY MOUTH Medical ONCE A DAY Branch NEEDED. dexAMETHaso 2021-09 Yes TAKE ONE [facility] [place] [facility] 2 mg 2-20 (1) ity of tablet 00:00: TABLET(S) 00 BY MOUTH Medical ONCE A DAY Branch NEEDED. dexAMETHaso 2021-09 Yes TAKE ONE [facility] 2 mg 2-20 (1) ity of tablet 00:00: TABLET(S) [place] 00 BY MOUTH Medical ONCE A DAY Branch NEEDED. dexAMETHaso 2021-09 Yes TAKE ONE [facility] 2 mg 2-20 (1) ity of tablet 00:00: TABLET(S) [place] 00 BY MOUTH Medical ONCE A DAY Branch NEEDED. dexAMETHaso 2021-09 Yes TAKE ONE [facility] 2 mg 2-20 (1) ity of tablet 00:00: TABLET(S) 00 BY MOUTH Medical ONCE A DAY Branch NEEDED. dexAMETHaso 2021-09 Yes TAKE ONE [facility] [place] 2 mg 2-20 (1) ity of tablet 00:00: TABLET(S) [place] 00 BY MOUTH Medical ONCE A DAY Branch NEEDED. dexAMETHaso 2021-09 Yes TAKE ONE [facility] 2 mg 2-20 (1) ity of tablet 00:00: TABLET(S) [place] 00 BY MOUTH Medical ONCE A DAY Branch NEEDED. dexAMETHaso 2021-09 Yes TAKE ONE [facility] [place] [facility] 2 mg 2-20 (1) ity of tablet 00:00: TABLET(S) 00 BY MOUTH Medical ONCE A DAY Branch NEEDED. dexAMETHaso 2021-09 Yes TAKE ONE [facility] [place] [facility] 2 mg 2-20 (1) ity of tablet 00:00: TABLET(S) BY MOUTH Medical ONCE A DAY Branch NEEDED. dexAMETHaso 2021-09 Yes TAKE ONE [facility] [place] 2 mg 2-20 (1) ity of tablet 00:00: TABLET(S) 00 BY MOUTH Medical ONCE A DAY Branch NEEDED. dexAMETHaso 2021-09 Yes TAKE ONE [facility] [place] 2 mg 2-20 (1) ity of tablet 00:00: TABLET(S) 00 BY MOUTH Medical ONCE A DAY Branch NEEDED. dexAMETHaso 2021-09 Yes TAKE ONE [place] 2 mg 2-20 (1) ity of tablet 00:00: TABLET(S) BY MOUTH Medical ONCE A DAY Branch NEEDED. dexAMETHaso 2021-09 Yes TAKE ONE [place] 2 mg 2-20 (1) ity of tablet 00:00: TABLET(S) 00 BY MOUTH Medical ONCE A DAY Branch NEEDED. dexAMETHaso 2021-09 Yes TAKE ONE [place] 2 mg 2-20 (1) ity of tablet 00:00: TABLET(S) BY MOUTH Medical ONCE A DAY Branch NEEDED. dexAMETHaso 2021-09 Yes TAKE ONE [place] 2 mg 2-20 (1) ity of tablet 00:00: TABLET(S) 00 BY MOUTH Medical ONCE A DAY Branch NEEDED. dexAMETHaso 2021-09 Yes TAKE ONE [facility] [place] [facility] 2 mg 2-20 (1) ity of tablet 00:00: TABLET(S) 00 BY MOUTH Medical ONCE A DAY Branch NEEDED. EPINEPHrine 2021-09 Yes INJECT 0.3 [facility] 0.3 mg/0.3 2-19 MILLILITER ity of mL 00:00: BY [place] injection 00 INTRAMUSCU [facility]i [facility] [place] Branch ONCE NEEDED FOR ANAPHYLAXI S. EPINEPHrine 2021-09 Yes INJECT 0.3 [facility] 0.3 mg/0.3 2-19 MILLILITER ity of mL 00:00: BY [place] injection 00 INTRAMUSCU [facility] [place] [facility] ONCE NEEDED FOR ANAPHYLAXI S. EPINEPHrine 2021-09 Yes INJECT 0.3 [facility] 0.3 mg/0.3 2-19 MILLILITER ity of mL 00:00: BY [place] injection 00 INTRAMUSCU [facility] [place] [facility] ONCE NEEDED FOR ANAPHYLAXI S. EPINEPHrine 2021-09 Yes INJECT 0.3 [facility] 0.3 mg/0.3 2-19 MILLILITER ity of mL 00:00: BY [place] injection 00 INTRAMUSCU [facility] [place] [facility] ONCE NEEDED FOR ANAPHYLAXI S. EPINEPHrine 2021-09 Yes INJECT 0.3 [facility] 0.3 mg/0.3 2-19 MILLILITER ity of mL 00:00: BY [place] injection 00 INTRAMUSCU [facility] [place] [facility] ONCE NEEDED FOR ANAPHYLAXI S. EPINEPHrine 2021-09 Yes INJECT 0.3 [facility] 0.3 mg/0.3 2-19 MILLILITER ity of mL 00:00: BY [place] injection 00 INTRAMUSCU [facility] [place] [facility] ONCE NEEDED FOR ANAPHYLAXI S. EPINEPHrine 2021-09 Yes INJECT 0.3 [facility] 0.3 mg/0.3 2-19 MILLILITER ity of mL 00:00: BY [place] injection 00 INTRAMUSCU [facility] [place] [facility] ONCE NEEDED FOR ANAPHYLAXI S. EPINEPHrine 2021-09 Yes INJECT 0.3 [facility] 0.3 mg/0.3 2-19 MILLILITER ity of mL 00:00: BY [place] injection 00 INTRAMUSCU [facility] [place] [facility] ONCE NEEDED FOR ANAPHYLAXI S. EPINEPHrine 2021-09 Yes INJECT 0.3 [facility] 0.3 mg/0.3 2-19 MILLILITER ity of mL 00:00: BY [place] injection 00 INTRAMUSCU [facility] [place] [facility] ONCE NEEDED FOR ANAPHYLAXI S. EPINEPHrine 2021-09 Yes INJECT 0.3 [facility] 0.3 mg/0.3 2-19 M[place]ILITER ity of mL 00:00: BY [place] injection 00 INTRAMUSCU [facility] [place] [facility] ONCE NEEDED FOR ANAPHYLAXI S. EPINEPHrine 2021-09 Yes INJECT 0.3 [facility] 0.3 mg/0.3 2-19 MILLILITER ity of mL 00:00: BY [place] injection 00 INTRAMUSCU [facility] [place] [facility] ONCE NEEDED FOR ANAPHYLAXI S. EPINEPHrine 2021-09 Yes INJECT 0.3 [facility] 0.3 mg/0.3 2-19 MILLILITER ity of mL 00:00: BY [place] injection 00 INTRAMUSCU [facility] [place] [facility] ONCE NEEDED FOR ANAPHYLAXI S. EPINEPHrine 2021-09 Yes INJECT 0.3 [facility] 0.3 mg/0.3 2-19 M[place]ILITER ity of mL 00:00: BY [place] injection 00 INTRAMUSCU [facility] [place] [facility] ONCE NEEDED FOR ANAPHYLAXI S. EPINEPHrine 2021-09 Yes INJECT 0.3 [facility] 0.3 mg/0.3 2-19 M[place]ILITER ity of mL 00:00: BY [place] injection 00 INTRAMUSCU [facility] [place] [facility] ONCE NEEDED FOR ANAPHYLAXI S. EPINEPHrine 2021-09 Yes INJECT 0.3 [facility] 0.3 mg/0.3 2-19 M[place]ILITER ity of mL 00:00: BY [place] injection 00 INTRAMUSCU [facility] [place] [facility] ONCE NEEDED FOR ANAPHYLAXI S. EPINEPHrine 2021-09 Yes INJECT 0.3 [facility] 0.3 mg/0.3 2-19 MILLILITER ity of mL 00:00: BY [place] injection 00 INTRAMUSCU [facility] [place] [facility] ONCE NEEDED FOR ANAPHYLAXI S. EPINEPHrine 2021-09 Yes INJECT 0.3 [facility] 0.3 mg/0.3 2-19 MILLILITER ity of mL 00:00: BY [place] injection 00 INTRAMUSCU [facility] [place] [facility] ONCE NEEDED FOR ANAPHYLAXI S. EPINEPHrine 2021-09 Yes INJECT 0.3 [facility] 0.3 mg/0.3 2-19 M[place]ILITER ity of mL 00:00: BY [place] injection 00 INTRAMUSCU [facility] [place] [facility] ONCE NEEDED FOR ANAPHYLAXI S. EPINEPHrine 2021-09 Yes INJECT 0.3 [facility] 0.3 mg/0.3 2-19 M[place]ILITER ity of mL 00:00: BY [place] injection 00 INTRAMUSCU [facility] [place] [facility] ONCE NEEDED FOR ANAPHYLAXI S. EPINEPHrine 2021-09 Yes INJECT 0.3 [facility] 0.3 mg/0.3 2-19 M[place]ILITER ity of mL 00:00: BY [place] injection 00 INTRAMUSCU [facility] [place] [facility] ONCE NEEDED FOR ANAPHYLAXI S. EPINEPHrine 2021-09 Yes INJECT 0.3 [facility] 0.3 mg/0.3 2-19 M[place]ILITER ity of mL 00:00: BY [place] injection 00 INTRAMUSCU [facility] [place] [facility] ONCE NEEDED FOR ANAPHYLAXI S. EPINEPHrine 2021-09 Yes INJECT 0.3 [facility] 0.3 mg/0.3 2-19 M[place]ILITER ity of mL 00:00: BY [place] injection 00 INTRAMUSCU [facility] [place] [facility] ONCE NEEDED FOR ANAPHYLAXI S. EPINEPHrine 2021-09 Yes INJECT 0.3 [facility] 0.3 mg/0.3 2-19 M[place]IL[place] ity of mL 00:00: BY [place] injection 00 INTRAMUSCU [facility] [place] [facility] ONCE NEEDED FOR ANAPHYLAXI S. EPINEPHrine 2021-09 Yes INJECT 0.3 [facility] 0.3 mg/0.3 2-19 M[place]ILITER ity of mL 00:00: BY [place] injection 00 INTRAMUSCU [facility] [place] [facility] ONCE NEEDED FOR ANAPHYLAXI S. EPINEPHrine 2021-09 Yes INJECT 0.3 [facility] 0.3 mg/0.3 2-19 M[place]ILITER ity of mL 00:00: BY [place] injection 00 INTRAMUSCU [facility] [place] [facility] ONCE NEEDED FOR ANAPHYLAXI S. EPINEPHrine 2021-09 Yes INJECT 0.3 [facility] 0.3 mg/0.3 2-19 M[place]ILITER ity of mL 00:00: BY [place] injection 00 INTRAMUSCU [facility] [place] [facility] ONCE NEEDED FOR ANAPHYLAXI S. EPINEPHrine 2021-09 Yes INJECT 0.3 [facility] 0.3 mg/0.3 2-19 M[place]ILITER ity of mL 00:00: BY [place] injection 00 INTRAMUSCU [facility] [place] [facility] ONCE NEEDED FOR ANAPHYLAXI S. EPINEPHrine 2021-09 Yes INJECT 0.3 [facility] 0.3 mg/0.3 2-19 M[place]IL[place] ity of mL 00:00: BY [place] injection 00 INTRAMUSCU [facility] [place] [facility] ONCE NEEDED FOR ANAPHYLAXI S. EPINEPHrine 2021-09 Yes INJECT 0.3 [facility] 0.3 mg/0.3 2-19 M[place]IL[place] ity of mL 00:00: BY [place] injection 00 INTRAMUSCU [facility] [place] [facility] ONCE NEEDED FOR ANAPHYLAXI S. EPINEPHrine 2021-09 Yes INJECT 0.3 [facility] 0.3 mg/0.3 2-19 M[place]IL[place] ity of mL 00:00: BY [place] injection 00 INTRAMUSCU [facility] [place] [facility] ONCE NEEDED FOR ANAPHYLAXI S. EPINEPHrine 2021-09 Yes INJECT 0.3 [facility] 0.3 mg/0.3 2-19 M[place]IL[place] ity of mL 00:00: BY [place] injection 00 INTRAMUSCU [facility] [place] [facility] ONCE NEEDED FOR ANAPHYLAXI S. EPINEPHrine 2021-09 Yes INJECT 0.3 [facility] 0.3 mg/0.3 2-19 M[place] ity of mL 00:00: BY [place] injection 00 INTRAMUSCU [facility] [place] [facility] ONCE NEEDED FOR ANAPHYLAXI S. EPINEPHrine 2021-09 Yes INJECT 0.3 [facility] 0.3 mg/0.3 2-19 M[place]ILITER ity of mL 00:00: BY [place] injection 00 INTRAMUSCU [facility] [place] [facility] ONCE NEEDED FOR ANAPHYLAXI S. EPINEPHrine 2021-09 Yes INJECT 0.3 [facility] 0.3 mg/0.3 2-19 M[place]ILITER ity of mL 00:00: BY [place] injection 00 INTRAMUSCU Medi virgilio [place] Branch ONCE NEEDED FOR ANAPHYLAXI S. EPINEPHrine 2021-09 Yes INJECT 0.3 Univers 0.3 mg/0.3 2-19 [place] ity of mL 00:00: BY [place] injection 00 INTRAMUSCU Medi virgilio [place] Branch ONCE NEEDED FOR ANAPHYLAXI S. TRELEGY 2021-09 Yes INHALE ONE Univ ers ELLIPTA 2-16 (1) ity of 200-62.5-25 00:00: PUFF(S) BY [facility] DsDv 00 MOUTH ONCE Medic al A DAY. Branch fluticasone 2021-09 Yes INSTILL Uni vers propionate 2-16 TWO (2) ity of 50 00:00: SPRAYS IN [place] mcg/actuati 00 EACH Medical on nasal NOSTRIL Branch spray ONCE A DAY. levocetiriz 2021-09 Yes TAKE ONE Un brian ine 5 mg 2-16 (1) TABLET ity o f tablet 00:00: BY MOUTH [place] 00 EVERY DAY Medical IN THE Branch EVENING. pantoprazol 2021-09 Yes 40mg Take 40 mg Univers e 40 mg EC 2-16 by mouth ity o f tablet 00:00: in the [place] 00 morning. Medical Branch TRELEGY 2021-09 Yes INHALE ONE Univ ers ELLIPTA 2-16 (1) ity of 200-62.5-25 00:00: PUFF(S) BY [place] mcg DsDv 00 MOUTH ONCE Medic al A DAY. Branch fluticasone 2021-09 Yes INSTILL Uni vers propionate 2-16 TWO (2) ity of 50 00:00: SPRAYS IN [place] mcg/actuati 00 EACH Medical on nasal NOSTRIL Branch spray ONCE A DAY. levocetiriz 2021-09 Yes TAKE ONE Un brian ine 5 mg 2-16 (1) TABLET ity o f tablet 00:00: BY MOUTH [place] 00 EVERY DAY Medical IN THE Branch EVENING. pantoprazol 2021-09 Yes 40mg Take 40 mg Univers e 40 mg EC 2-16 by mouth ity o f tablet 00:00: in the [place] [address] morning. Medical Branch TRELEGY 2021-09 Yes INHALE ONE Univ ers ELLIPTA 2-16 (1) ity of 200-62.5-25 00:00: PUFF(S) BY [place] mcg DsDv 00 MOUTH ONCE Medic al A DAY. Branch fluticasone 2021-09 Yes INSTILL Uni vers propionate 2-16 TWO (2) ity of 50 00:00: SPRAYS IN [place] mcg/actuati 00 EACH Medical on nasal NOSTRIL Branch spray ONCE A DAY. levocetiriz 2021-09 Yes TAKE ONE Un brian ine 5 mg 2-16 (1) TABLET ity o f tablet 00:00: BY MOUTH [place] [address] EVERY DAY Medical IN THE Branch EVENING. pantoprazol 2021-09 Yes 40mg Take 40 mg Univers e 40 mg EC 2-16 by mouth ity o f tablet 00:00: in the [place] [address] morning. Medical Branch TRELEGY 2021-09 Yes INHALE ONE Univ ers ELLIPTA 2-16 (1) ity of 200-62.5-25 00:00: PUFF(S) BY [place] mcg DsDv 00 MOUTH ONCE Medic al A DAY. Branch fluticasone 2021-09 Yes INSTILL Uni vers propionate 2-16 TWO (2) ity of 50 00:00: SPRAYS IN [place] mcg/actuati 00 EACH Medical on nasal NOSTRIL Branch spray ONCE A DAY. levocetiriz 2021-09 Yes TAKE ONE Un brian ine 5 mg 2-16 (1) TABLET ity o f tablet 00:00: BY MOUTH [place] 00 EVERY DAY Medical IN THE [place] EVENING. pantoprazol 2021-09 Yes 40mg Take 40 mg Univers e 40 mg EC 2-16 by mouth ity o f tablet 00:00: in the [place] [address] morning. [facility] 2021-09 Yes INHALE ONE Univ ers ELLIPTA 2-16 (1) ity of 200-62.5-25 00:00: PUFF(S) BY [place] mcg DsDv 00 MOUTH ONCE Medic al A DAY. [place] fluticasone 2021-09 Yes INSTILL Uni vers propionate 2-16 TWO (2) ity of 50 00:00: SPRAYS IN [place] mcg/actuati 00 EACH Medical on nasal NOSTRIL Branch spray ONCE A DAY. levocetiriz 2021-09 Yes TAKE ONE Un [facility]rian ine 5 mg 2-16 (1) TABLET ity o f tablet 00:00: BY MOUTH [place] [address] EVERY DAY Medical IN THE [place] EVENING. pantoprazol 2021-09 Yes 40mg Take 40 mg Univers e 40 mg EC 2-16 by mouth ity o f tablet 00:00: in the [place] 00 morning. [facility] 2021-09 Yes INHALE ONE Univ ers ELLIPTA 2-16 (1) ity of 200-62.5-25 00:00: PUFF(S) BY [place] mcg DsDv 00 MOUTH ONCE Medic al A DAY. [place] fluticasone 2021-09 Yes INSTILL Uni vers propionate 2-16 TWO (2) ity of 50 00:00: SPRAYS IN [place] mcg/actuati 00 EACH Medical on nasal NOSTRIL Branch spray ONCE A DAY. levocetiriz 2021-09 Yes TAKE ONE Un brian ine 5 mg 2-16 (1) TABLET ity o f tablet 00:00: BY MOUTH [place] [address] EVERY DAY Medical IN THE [place] EVENING. pantoprazol 2021-09 Yes 40mg Take 40 mg Univers e 40 mg EC 2-16 by mouth ity o f tablet 00:00: in the [place] 00 morning. [facility] 2021-09 Yes INHALE ONE Univ ers ELLIPTA 2-16 (1) ity of 200-62.5-25 00:00: PUFF(S) BY [facility] DsDv 00 MOUTH ONCE Medic al A DAY. [place] fluticasone 2022-1 Yes INSTILL Uni vers propionate 2-16 TWO (2) ity of 50 00:00: SPRAYS IN [place] mcg/actuati 00 EACH Medical on nasal NOSTRIL Branch spray ONCE A DAY. levocetiriz 2021-09 Yes TAKE ONE Un brian ine 5 mg 2-16 (1) TABLET ity o f tablet 00:00: BY MOUTH [place] 00 EVERY DAY Medical IN THE Branch EVENING. pantoprazol 2021-09 Yes 40mg Take 40 mg Univers e 40 mg EC 2-16 by mouth ity o f tablet 00:00: in the [place] 00 morning. Medical Branch [facility] 2021-09 Yes INHALE ONE Univ ers ELLIPTA 2-16 (1) ity of 200-62.5-25 00:00: PUFF(S) BY [facility] DsDv 00 MOUTH ONCE Medic al A DAY. Branch fluticasone 2021-09 Yes INSTILL Uni vers propionate 2-16 TWO (2) ity of 50 00:00: SPRAYS IN [place] mcg/actuati 00 EACH Medical on nasal NOSTRIL Branch spray ONCE A DAY. levocetiriz 2021-09 Yes TAKE ONE Un [facility]rian ine 5 mg 2-16 (1) TABLET ity o f tablet 00:00: BY MOUTH [place] 00 EVERY DAY Medical IN THE Branch EVENING. pantoprazol 2021-09 Yes 40mg Take 40 mg Univers e 40 mg EC 2-16 by mouth ity o f tablet 00:00: in the [place] 00 morning. Medical [facility] 2021-09 Yes INHALE ONE Univ ers ELLIPTA 2-16 (1) ity of 200-62.5-25 00:00: PUFF(S) BY [facility] DsDv 00 MOUTH ONCE Medic al A DAY. Branch fluticasone 2021-09 Yes INSTILL Uni vers propionate 2-16 TWO (2) ity of 50 00:00: SPRAYS IN [place] mcg/actuati 00 EACH Medical on nasal NOSTRIL Branch spray ONCE A DAY. levocetiriz 2021-09 Yes TAKE ONE Un [facility]rian ine 5 mg 2-16 (1) TABLET ity o f tablet 00:00: BY MOUTH [place] 00 EVERY DAY Medical IN THE Branch EVENING. pantoprazol 2021-09 Yes 40mg Take 40 mg Univers e 40 mg EC 2-16 by mouth ity o f tablet 00:00: in the [place] 00 morning. Medical Branch [facility]LE[facility] 2021-09 Yes INHALE ONE Univ ers ELLIPTA 2-16 (1) ity of 200-62.5-25 00:00: PUFF(S) BY [place] mcg DsDv 00 MOUTH ONCE Medic al A DAY. Branch fluticasone 2021-09 Yes INSTILL Uni vers propionate 2-16 TWO (2) ity of 50 00:00: SPRAYS IN [place] mcg/actuati 00 EACH Medical on nasal NOSTRIL Branch spray ONCE A DAY. levocetiriz 2021-09 Yes TAKE ONE Un brian ine 5 mg 2-16 (1) TABLET ity o f tablet 00:00: BY MOUTH [place] 00 EVERY DAY Medical IN THE Branch EVENING. pantoprazol 2021-09 Yes 40mg Take 40 mg Univers e 40 mg EC 2-16 by mouth ity o f tablet 00:00: in the [place] 00 morning. Medical Branch [facility] 2021-09 Yes INHALE ONE Univ ers ELLIPTA 2-16 (1) ity of 200-62.5-25 00:00: PUFF(S) BY [place] mcg DsDv 00 MOUTH ONCE Medic al A DAY. Branch fluticasone 2021-09 Yes INSTILL Uni vers propionate 2-16 TWO (2) ity of 50 00:00: SPRAYS IN [facility]/actuati 00 EACH Medical on nasal NOSTRIL Branch spray ONCE A DAY. levocetiriz 2021-09 Yes TAKE ONE Un brian ine 5 mg 2-16 (1) TABLET ity o f tablet 00:00: BY MOUTH [place] 00 EVERY DAY Medical IN THE Branch EVENING. pantoprazol 2021-09 Yes 40mg Take 40 mg Univers e 40 mg EC 2-16 by mouth ity o f tablet 00:00: in the [place] 00 morning. Medical Branch TREG[facility] 2021-09 Yes INHALE ONE Univ ers ELLIPTA 2-16 (1) ity of 200-62.5-25 00:00: PUFF(S) BY [place] mcg DsDv 00 MOUTH ONCE Medic al A DAY. Branch fluticasone 2021-09 Yes INSTILL Uni vers propionate 2-16 TWO (2) ity of 50 00:00: SPRAYS IN [place] mcg/actuati 00 EACH Medical on nasal NOSTRIL Branch spray ONCE A DAY. levocetiriz 2021-09 Yes TAKE ONE Un brian ine 5 mg 2-16 (1) TABLET ity o f tablet 00:00: BY MOUTH [place] [address] EVERY DAY Medical IN THE Branch EVENING. pantoprazol 2021-09 Yes 40mg Take 40 mg Univers e 40 mg EC 2-16 by mouth ity o f tablet 00:00: in the [place] [address] morning. Medical [facility] 2021-09 Yes INHALE ONE Univ ers ELLIPTA 2-16 (1) ity of 200-62.5-25 00:00: PUFF(S) BY [facility] DsDv 00 MOUTH ONCE Medic al A DAY. Branch fluticasone 2021-09 Yes INSTILL Uni vers propionate 2-16 TWO (2) ity of 50 00:00: SPRAYS [facility] EACH Medical on nasal NOSTRIL Branch spray ONCE A DAY. levocetiriz 2021-09 Yes TAKE ONE Un b[facility] ine 5 mg 2-16 (1) TABLET ity o f tablet 00:00: BY MOUTH [place] [address] EVERY DAY Medical IN THE Branch EVENING. pantoprazol 2021-09 Yes 40mg Take 40 mg Univers e 40 mg EC 2-16 by mouth ity o f tablet 00:00: in the [place] 00 morning. Medical [facility] 2021-09 Yes INHALE ONE Univ ers ELLIPTA 2-16 (1) ity of 200-62.5-25 00:00: PUFF(S) BY [facility] DsDv 00 MOUTH ONCE Medic al A DAY. Branch fluticasone 2021-09 Yes INSTILL Uni vers propionate 2-16 TWO (2) ity of 50 00:00: SPRAYS IN [facility]/actuati 00 EACH Medical on nasal NOSTRIL Branch spray ONCE A DAY. levocetiriz 2021-09 Yes TAKE ONE Un b[facility] ine 5 mg 2-16 (1) TABLET ity o f tablet 00:00: BY MOUTH [place] [address] EVERY DAY Medical IN THE Branch EVENING. pantoprazol 2021-09 Yes 40mg Take 40 mg Univers e 40 mg EC 2-16 by mouth ity o f tablet 00:00: in the [place] [address] morning. [facility] 2021-09 Yes INHALE ONE Univ ers ELLIPTA 2-16 (1) ity of 200-62.5-25 00:00: PUFF(S) BY [facility] DsDv 00 MOUTH ONCE Medic al A DAY. Branch fluticasone 2021-09 Yes INSTILL Uni vers propionate 2-16 TWO (2) ity of 50 00:00: SPRAYS IN [facility]/actuati 00 EACH Medical on nasal NOSTRIL Branch spray ONCE A DAY. levocetiriz 2021-09 Yes TAKE ONE Un brian ine 5 mg 2-16 (1) TABLET ity o f tablet 00:00: BY MOUTH [place] [address] EVERY DAY Medical IN THE Branch EVENING. pantoprazol 2021-09 Yes 40mg Take 40 mg Univers e 40 mg EC 2-16 by mouth ity o f tablet 00:00: in the [place] [address] morning. Medical Branch [facility] 2021-09 Yes INHALE ONE Univ ers ELLIPTA 2-16 (1) ity of 200-62.5-25 00:00: PUFF(S) BY [facility] DsDv 00 MOUTH ONCE Medic al A DAY. Branch fluticasone 2021-09 Yes INSTILL Uni vers propionate 2-16 TWO (2) ity of 50 00:00: SPRAYS IN [facility] 00 EACH Medical on nasal NOSTRIL Branch spray ONCE A DAY. levocetiriz 2021-09 Yes TAKE ONE Un brian ine 5 mg 2-16 (1) TABLET ity o f tablet 00:00: BY MOUTH [place] [address] EVERY DAY Medical IN THE Branch EVENING. pantoprazol 2021-09 Yes 40mg Take 40 mg Univers e 40 mg EC 2-16 by mouth ity o f tablet 00:00: in the [place] [address] morning. Medical Branch [facility] 2021-09 Yes INHALE ONE Univ ers ELLIPTA 2-16 (1) ity of 200-62.5-25 00:00: PUFF(S) BY [facility] DsDv 00 MOUTH ONCE Medic al A DAY. Branch fluticasone 2021-09 Yes INSTILL Uni vers propionate 2-16 TWO (2) ity of 50 00:00: SPRAYS IN [facility]/actuati 00 EACH Medical on nasal NOSTRIL Branch spray ONCE A DAY. levocetiriz 2021-09 Yes TAKE ONE Un brian ine 5 mg 2-16 (1) TABLET ity o f tablet 00:00: BY MOUTH [place] [address] EVERY DAY Medical IN THE Branch EVENING. pantoprazol 2021-09 Yes 40mg Take 40 mg Univers e 40 mg EC 2-16 by mouth ity o f tablet 00:00: in the [place] 00 morning. Medical Branch [facility] 2021-09 Yes INHALE ONE Univ ers ELLIPTA 2-16 (1) ity of 200-62.5-25 00:00: PUFF(S) BY [place] mcg DsDv 00 MOUTH ONCE Medic al A DAY. Branch fluticasone 2021-09 Yes INSTILL Uni vers propionate 2-16 TWO (2) ity of 50 00:00: SPRAYS IN [place] mcg/actuati 00 EACH Medical on nasal NOSTRIL Branch spray ONCE A DAY. levocetiriz 2021-09 Yes TAKE ONE Un [facility] ine 5 mg 2-16 (1) TABLET ity o f tablet 00:00: BY MOUTH [place] [address] EVERY DAY Medical IN THE Branch EVENING. pantoprazol 2021-09 Yes 40mg Take 40 mg Univers e 40 mg EC 2-16 by mouth ity o f tablet 00:00: in the [place] 00 morning. Medical Branch [facility] 2021-09 Yes INHALE ONE Univ ers ELLIPTA 2-16 (1) ity of 200-62.5-25 00:00: PUFF(S) BY [facility] DsDv 00 MOUTH ONCE Medic al A DAY. Branch fluticasone 2021-09 Yes INSTILL Uni vers propionate 2-16 TWO (2) ity of 50 00:00: SPRAYS IN [facility]/actuati 00 EACH Medical on nasal NOSTRIL Branch spray ONCE A DAY. levocetiriz 2021-09 Yes TAKE ONE Un brian ine 5 mg 2-16 (1) TABLET ity o f tablet 00:00: BY MOUTH [place] [address] EVERY DAY Medical IN THE Branch EVENING. pantoprazol 2021-09 Yes 40mg Take 40 mg Univers e 40 mg EC 2-16 by mouth ity o f tablet 00:00: in the [place] 00 morning. Medical Branch T[facility] 2021-09 Yes INHALE ONE Univ ers ELLIPTA 2-16 (1) ity of 200-62.5-25 00:00: PUFF(S) BY [place] mcg DsDv 00 MOUTH ONCE Medic al A DAY. Branch fluticasone 2021-09 Yes INSTILL Uni vers propionate 2-16 TWO (2) ity of 50 00:00: SPRAYS IN [place] mcg/actuati 00 EACH Medical on nasal NOSTRIL Branch spray ONCE A DAY. levocetiriz 2021-09 Yes TAKE ONE Un [facility]rian ine 5 mg 2-16 (1) TABLET ity o f tablet 00:00: BY MOUTH [place] [address] EVERY DAY Medical IN THE Branch EVENING. pantoprazol 2021-09 Yes 40mg Take 40 mg Univers e 40 mg EC 2-16 by mouth ity o f tablet 00:00: in the [place] 00 morning. Medical [facility] 2021-09 Yes INHALE ONE Univ ers ELLIPTA 2-16 (1) ity of 200-62.5-25 00:00: PUFF(S) BY [facility] DsDv 00 MOUTH ONCE Medic al A DAY. Branch fluticasone 2021-09 Yes INSTILL Uni vers propionate 2-16 TWO (2) ity of 50 00:00: SPRAYS IN [facility] EACH Medical on nasal NOSTRIL Branch spray ONCE A DAY. levocetiriz 2021-09 Yes TAKE ONE Un brian ine 5 mg 2-16 (1) TABLET ity o f tablet 00:00: BY MOUTH [place] [address] EVERY DAY Medical IN THE [place] EVENING. pantoprazol 2021-09 Yes 40mg Take 40 mg Univers e 40 mg EC 2-16 by mouth ity o f tablet 00:00: in the [place] 00 morning. [facility] 2021-09 Yes INHALE ONE Univ ers ELLIPTA 2-16 (1) ity of 200-62.5-25 00:00: PUFF(S) BY [place] mcg DsDv 00 MOUTH ONCE Medic al A DAY. Branch fluticasone 2021-09 Yes INSTILL Uni vers propionate 2-16 TWO (2) ity of 50 00:00: SPRAYS IN [facility] EACH Medical on nasal NOSTRIL Branch spray ONCE A DAY. levocetiriz 2021-09 Yes TAKE ONE Un brian ine 5 mg 2-16 (1) TABLET ity o f tablet 00:00: BY MOUTH [place] [address] EVERY DAY Medical IN THE Branch EVENING. pantoprazol 2021-09 Yes 40mg Take 40 mg Univers e 40 mg EC 2-16 by mouth ity o f tablet 00:00: in the [place] 00 morning. Medical [facility] 2021-09 Yes INHALE ONE Univ ers ELLIPTA 2-16 (1) ity of 200-62.5-25 00:00: PUFF(S) BY [place] mcg DsDv 00 MOUTH ONCE Medic al A DAY. Branch fluticasone 2021-09 Yes INSTILL Uni vers propionate 2-16 TWO (2) ity of 50 00:00: SPRAYS IN [place] mcg/actuati 00 EACH Medical on nasal NOSTRIL Branch spray ONCE A DAY. levocetiriz 2021-09 Yes TAKE ONE Un [facility] ine 5 mg 2-16 (1) TABLET ity o f tablet 00:00: BY MOUTH [place] [address] EVERY DAY Medical IN THE Branch EVENING. pantoprazol 2021-09 Yes 40mg Take 40 mg Univers e 40 mg EC 2-16 by mouth ity o f tablet 00:00: in the [place] [address] morning. Medical Branch [facility] 2021-09 Yes INHALE ONE Univ ers ELLIPTA 2-16 (1) ity of 200-62.5-25 00:00: PUFF(S) BY [place] mcg DsDv 00 MOUTH ONCE Medic al A DAY. Branch fluticasone 2021-09 Yes INSTILL Uni vers propionate 2-16 TWO (2) ity of 50 00:00: SPRAYS IN [facility] EACH Medical on nasal NOSTRIL Branch spray ONCE A DAY. levocetiriz 2021-09 Yes TAKE ONE Un [facility] ine 5 mg 2-16 (1) TABLET ity o f tablet 00:00: BY MOUTH [place] [address] EVERY DAY Medical IN THE Branch EVENING. pantoprazol 2021-09 Yes 40mg Take 1 Univ ers e 40 mg EC 2-16 tablet by ity of tablet 00:00: mouth in [place] [address] the Medical morning. Branch T[facility]LE[facility] 2021-09 Yes INHALE ONE Univ ers ELLIPTA 2-16 (1) ity of 200-62.5-25 00:00: PUFF(S) BY [place] mcg DsDv 00 MOUTH ONCE Medic al A DAY. Branch fluticasone 2021-09 Yes INSTILL Uni vers propionate 2-16 TWO (2) ity of 50 00:00: SPRAYS IN [place] mcg/actuati 00 EACH Medical on nasal NOSTRIL Branch spray ONCE A DAY. levocetiriz 2021-09 Yes TAKE ONE Un [facility] ine 5 mg 2-16 (1) TABLET ity o f tablet 00:00: BY MOUTH [place] 00 EVERY DAY Medical IN THE Branch EVENING. pantoprazol 2021-09 Yes 40mg Take 1 Univ ers e 40 mg EC 2-16 tablet by ity of tablet 00:00: mouth in [place] 00 the Medical morning. [place] TRELEGY 2021-09 Yes INHALE ONE Univ ers ELLIPTA 2-16 (1) ity of 200-62.5-25 00:00: PUFF(S) BY [place] mcg DsDv 00 MOUTH ONCE Medic al A DAY. [place] fluticasone 2021-09 Yes INSTILL Uni vers propionate 2-16 TWO (2) ity of 50 00:00: SPRAYS IN [place] mcg/actuati 00 EACH Medical on nasal NOSTRIL Branch spray ONCE A DAY. levocetiriz 2021-09 Yes TAKE ONE [facility] ine 5 mg 2-16 (1) TABLET ity o f tablet 00:00: BY MOUTH [place] 00 EVERY DAY Medical IN THE [place] EVENING. pantoprazol 2021-09 Yes 40mg Take 1 Univ ers e 40 mg EC 2-16 tablet by ity of tablet 00:00: mouth in [place] 00 the Medical morning. [place] TRELEGY 2021-09 Yes INHALE ONE Univ ers ELLIPTA 2-16 (1) ity of 200-62.5-25 00:00: PUFF(S) BY [place] mcg DsDv 00 MOUTH ONCE Medic al A DAY. [place] fluticasone 2021-09 Yes INSTILL Uni vers propionate 2-16 TWO (2) ity of 50 00:00: SPRAYS IN [place] mcg/actuati 00 EACH Medical on nasal NOSTRIL Branch spray ONCE A DAY. levocetiriz 2021-09 Yes TAKE ONE [facility] in[facility] 5 mg 2-16 (1) TABLET ity o f tablet 00:00: BY MOUTH [place] 00 EVERY DAY Medical IN THE [place] EVENING. pantoprazol 2021-09 Yes 40mg Take 1 Univ ers e 40 mg EC 2-16 tablet by ity of tablet 00:00: mouth in [place] 00 the Medical morning. [place] TRELEGY 2021-09 Yes INHALE ONE Univ ers ELLIPTA 2-16 (1) ity of 200-62.5-25 00:00: PUFF(S) BY [place] mcg DsDv 00 MOUTH ONCE Medic al A DAY. [place] fluticasone 2021-09 Yes INSTILL Uni vers propionate 2-16 TWO (2) ity of 50 00:00: SPRAYS IN [place] mcg/actuati 00 EACH Medical on nasal NOSTRIL Branch spray ONCE A DAY. levocetiriz 2021-09 Yes TAKE ONE [facility] [place] in[place] 5 mg 2-16 (1) TABLET ity o f tablet 00:00: BY MOUTH [place] 00 EVERY DAY Medical IN THE Branch EVENING. pantoprazol 2021-09 Yes 40mg Take 1 Univ ers e 40 mg EC 2-16 tablet by ity of tablet 00:00: mouth in [place] 00 the Medical morning. Branch TRELEGY 2021-09 Yes INHALE ONE Univ ers ELLIPTA 2-16 (1) ity of 200-62.5-25 00:00: PUFF(S) BY [place] mcg DsDv 00 MOUTH ONCE Medic al A DAY. Branch fluticasone 2021-09 Yes INSTILL Uni vers propionate 2-16 TWO (2) ity of 50 00:00: SPRAYS IN [place] mcg/actuati 00 EACH Medical on nasal NOSTRIL Branch spray ONCE A DAY. levocetiriz 2021-09 Yes TAKE ONE [facility] [place] [facility] 5 mg 2-16 (1) TABLET ity o f tablet 00:00: BY MOUTH [place] 00 EVERY DAY Medical IN THE Branch EVENING. pantoprazol 2021-09 Yes 40mg Take 1 Univ ers e 40 mg EC 2-16 tablet by ity of tablet 00:00: mouth in [place] 00 the Medical morning. Branch TRELEGY 2021-09 Yes INHALE ONE Univ ers ELLIPTA 2-16 (1) ity of 200-62.5-25 00:00: PUFF(S) BY [place] mcg DsDv 00 MOUTH ONCE Medic al A DAY. Branch fluticasone 2021-09 Yes INSTILL Uni vers propionate 2-16 TWO (2) ity of 50 00:00: SPRAYS IN [place] mcg/actuati 00 EACH Medical on nasal NOSTRIL Branch spray ONCE A DAY. levocetiriz 2021-09 Yes TAKE ONE [facility] [place] [facility] 5 mg 2-16 (1) TABLET ity o f tablet 00:00: BY MOUTH [place] 00 EVERY DAY Medical IN THE Branch EVENING. pantoprazol 2021-09 Yes 40mg Take 1 Univ ers e 40 mg EC 2-16 tablet by ity of tablet 00:00: mouth in [place] 00 the Medical morning. Branch TRELEGY 2021-09 Yes INHALE ONE Univ ers ELLIPTA 2-16 (1) ity of 200-62.5-25 00:00: PUFF(S) BY [place] mcg DsDv 00 MOUTH ONCE Medic al A DAY. Branch fluticasone 2021-09 Yes INSTILL Uni vers propionate 2-16 TWO (2) ity of 50 00:00: SPRAYS IN [place] mcg/actuati 00 EACH Medical on nasal NOSTRIL Branch spray ONCE A DAY. levocetiriz 2021-09 Yes TAKE ONE [facility] in[facility] 5 mg 2-16 (1) TABLET ity o f tablet 00:00: BY MOUTH [place] 00 EVERY DAY Medical IN THE Branch EVENING. pantoprazol 2021-09 Yes 40mg Take 1 Univ ers e 40 mg EC 2-16 tablet by ity of tablet 00:00: mouth in [place] 00 the Medical morning. Branch TRELE[place] 2021-09 Yes INHALE ONE Univ ers ELLIPTA 2-16 (1) ity of 200-62.5-25 00:00: PUFF(S) BY [place] mcg DsDv 00 MOUTH ONCE Medic al A DAY. Branch fluticasone 2021-09 Yes INSTILL Uni vers propionate 2-16 TWO (2) ity of 50 00:00: SPRAYS IN [place] mcg/actuati 00 EACH Medical on nasal NOSTRIL Branch spray ONCE A DAY. levocetiriz 2021-09 Yes TAKE ONE [facility] [place] in[facility] 5 mg 2-16 (1) TABLET ity o f tablet 00:00: BY MOUTH [place] 00 EVERY DAY Medical IN THE Branch EVENING. pantoprazol 2021-09 Yes 40mg Take 1 Univ ers e 40 mg EC 2-16 tablet by ity of tablet 00:00: mouth in [place] 00 the Medical morning. Branch TRELE[facility] 2021-09 Yes INHALE ONE Univ ers ELLIPTA 2-16 (1) ity of 200-62.5-25 00:00: PUFF(S) BY [place] mcg DsDv 00 MOUTH ONCE Medic al A DAY. Branch fluticasone 2021-09 Yes INSTILL Uni vers propionate 2-16 TWO (2) ity of 50 00:00: SPRAYS IN [place] mcg/actuati 00 EACH Medical on nasal NOSTRIL Branch spray ONCE A DAY. levocetiriz 2021-09 Yes TAKE ONE Un [facility]rian ine 5 mg 2-16 (1) TABLET ity o f tablet 00:00: BY MOUTH [place] [address] EVERY DAY Medical IN THE [place] EVENING. pantoprazol 2021-09 Yes 40mg Take 1 Univ ers e 40 mg EC 2-16 tablet by ity of tablet 00:00: mouth in [place] [address] the Medical morning. [place] TREGY 2021-09 Yes INHALE ONE Univ ers ELLIPTA 2-16 (1) ity of 200-62.5-25 00:00: PUFF(S) BY [facility] DsDv 00 MOUTH ONCE Medic al A DAY. [place] fluticasone 2021-09 Yes INSTILL Uni vers propionate 2-16 TWO (2) ity of 50 00:00: SPRAYS IN [place] mcg/actuati 00 EACH Medical on nasal NOSTRIL Branch spray ONCE A DAY. levocetiriz 2021-09 Yes TAKE ONE Un [facility]rian ine 5 mg 2-16 (1) TABLET ity o f tablet 00:00: BY MOUTH [place] [address] EVERY DAY Medical IN THE [place] EVENING. pantoprazol 2021-09 Yes 40mg Take 1 Univ ers e 40 mg EC 2-16 tablet by ity of tablet 00:00: mouth in [place] 00 the Medical morning. [facility] 2021-09 Yes INHALE ONE Univ ers ELLIPTA 2-16 (1) ity of 200-62.5-25 00:00: PUFF(S) BY [facility] DsDv 00 MOUTH ONCE Medic al A DAY. [place] fluticasone 2021-09 Yes INSTILL Uni vers propionate 2-16 TWO (2) ity of 50 00:00: SPRAYS IN [place] mcg/actuati 00 EACH Medical on nasal NOSTRIL Branch spray ONCE A DAY. levocetiriz 2021-09 Yes TAKE ONE Un [facility]rian ine 5 mg 2-16 (1) TABLET ity o f tablet 00:00: BY MOUTH [place] [address] EVERY DAY Medical IN THE [place] EVENING. pantoprazol 2021-09 Yes 40mg Take 40 mg Univers e 40 mg EC 2-16 by mouth ity o f tablet 00:00: in the [place] 00 morning. [facility] 2021-09- No INHALE TWO Uni vers AEROSPHERE 2-16 02-14 (2) PUFFS ity of 160-9-4.8 00:00: 00:00 BY MOUTH [place] mcg/actuati 00 :00 TWICE Medical on HFAA DAILY. Branch BREZTRI 2021-09- No INHALE TWO Uni vers AEROSPHERE 2-16 02-14 (2) PUFFS ity of 160-9-4.8 00:00: 00:00 BY MOUTH [place]cg/actuati 00 :00 TWICE Medical on HFAA DAILY. Branch Azelastine 2021-09 Yes INSTILL Univ ers 205.5 mcg 2-10 TWO (2) ity of (0.15 %) 00:00: SPRAY(S) [place] nasal spray 00 INTO EACH Med ical NOSTRIL Branch TWICE A DAY. Azelastine 2021-09 Yes INSTILL Univ ers 205.5 mcg 2-10 TWO (2) ity of (0.15 %) 00:00: SPRAY(S) [place] nasal spray 00 INTO EACH Med ical NOSTRIL Branch TWICE A DAY. Azelastine 2021-09 Yes INSTILL Univ ers 205.5 mcg 2-10 TWO (2) ity of (0.15 %) 00:00: SPRAY(S) [place] nasal spray 00 INTO EACH Med ical NOSTRIL Branch TWICE A DAY. Azelastine 2021-09 Yes INSTILL Univ ers 205.5 mcg 2-10 TWO (2) ity of (0.15 %) 00:00: SPRAY(S) [place] nasal spray 00 INTO EACH Med ical NOSTRIL Branch TWICE A DAY. Azelastine 2021-09 Yes INSTILL Univ ers 205.5 mcg 2-10 TWO (2) ity of (0.15 %) 00:00: SPRAY(S) [place] nasal spray 00 INTO EACH Med ical NOSTRIL Branch TWICE A DAY. Azelastine 2021-09 Yes INSTILL Univ ers 205.5 mcg 2-10 TWO (2) ity of (0.15 %) 00:00: SPRAY(S) [place] nasal spray 00 INTO EACH Med ical NOSTRIL Branch TWICE A DAY. Azelastine 2021-09 Yes INSTILL Univ ers 205.5 mcg 2-10 TWO (2) ity of (0.15 %) 00:00: SPRAY(S) [place] nasal spray 00 INTO EACH Med ical NOSTRIL Branch TWICE A DAY. Azelastine 2021-09 Yes INSTILL Univ ers 205.5 mcg 2-10 TWO (2) ity of (0.15 %) 00:00: SPRAY(S) [place] nasal spray 00 INTO EACH Med ical NOSTRIL Branch TWICE A DAY. Azelastine 2021-09 Yes INSTILL Univ ers 205.5 mcg 2-10 TWO (2) ity of (0.15 %) 00:00: SPRAY(S) [place] nasal spray 00 INTO EACH Med ical NOSTRIL Branch TWICE A DAY. Azelastine 2021-09 Yes INSTILL Univ ers 205.5 mcg 2-10 TWO (2) ity of (0.15 %) 00:00: SPRAY(S) [place] nasal spray 00 INTO EACH Med ical NOSTRIL Branch TWICE A DAY. Azelastine 2021-09 Yes INSTILL Univ ers 205.5 mcg 2-10 TWO (2) ity of (0.15 %) 00:00: SPRAY(S) [place] nasal spray 00 INTO EACH Med ical NOSTRIL Branch TWICE A DAY. Azelastine 2021-09 Yes INSTILL Univ ers 205.5 mcg 2-10 TWO (2) ity of (0.15 %) 00:00: SPRAY(S) [place] nasal spray 00 INTO EACH Med ical NOSTRIL Branch TWICE A DAY. Azelastine 2021-09 Yes INSTILL Univ ers 205.5 mcg 2-10 TWO (2) ity of (0.15 %) 00:00: SPRAY(S) [place] nasal spray 00 INTO EACH Med ical NOSTRIL Branch TWICE A DAY. Azelastine 2021-09 Yes INSTILL Univ ers 205.5 mcg 2-10 TWO (2) ity of (0.15 %) 00:00: SPRAY(S) [place] nasal spray 00 INTO EACH Med ical NOSTRIL Branch TWICE A DAY. Azelastine 2021-09 Yes INSTILL Univ ers 205.5 mcg 2-10 TWO (2) ity of (0.15 %) 00:00: SPRAY(S) [place] nasal spray 00 INTO EACH Med ical NOSTRIL Branch TWICE A DAY. Azelastine 2021-09 Yes INSTILL Univ ers 205.5 mcg 2-10 TWO (2) ity of (0.15 %) 00:00: SPRAY(S) [place] nasal spray 00 INTO EACH Med ical NOSTRIL Branch TWICE A DAY. Azelastine 2021-09 Yes INSTILL Univ ers 205.5 mcg 2-10 TWO (2) ity of (0.15 %) 00:00: SPRAY(S) [place] nasal spray 00 INTO EACH Med ical NOSTRIL Branch TWICE A DAY. Azelastine 2021-09 Yes INSTILL [facility] 205.5 mcg 2-10 TWO (2) ity of (0.15 %) 00:00: SPRAY(S) [place] nasal spray 00 INTO EACH Med ical NOSTRIL Branch TWICE A DAY. Azelastine 2021-09 Yes INSTILL [facility] 205.5 mcg 2-10 TWO (2) ity of (0.15 %) 00:00: SPRAY(S) [place] nasal spray 00 INTO EACH Med ical NOSTRIL Branch TWICE A DAY. Azelastine 2021-09 Yes INSTILL [facility] 205.5 mcg 2-10 TWO (2) ity of (0.15 %) 00:00: SPRAY(S) [place] nasal spray 00 INTO EACH Med ical NOSTRIL Branch TWICE A DAY. Azelastine 2021-09 Yes INSTILL [facility] 205.5 mcg 2-10 TWO (2) ity of (0.15 %) 00:00: SPRAY(S) [place] nasal spray 00 INTO EACH Med ical NOSTRIL Branch TWICE A DAY. Azelastine 2021-09 Yes INSTILL [facility] 205.5 mcg 2-10 TWO (2) ity of (0.15 %) 00:00: SPRAY(S) [place] nasal spray 00 INTO EACH Med ical NOSTRIL Branch TWICE A DAY. Azelastine 2021-09 Yes INSTILL [facility] 205.5 mcg 2-10 TWO (2) ity of (0.15 %) 00:00: SPRAY(S) [place] nasal spray 00 INTO EACH Med ical NOSTRIL Branch TWICE A DAY. Azelastine 2021-09 Yes INSTILL [facility] 205.5 mcg 2-10 TWO (2) ity of (0.15 %) 00:00: SPRAY(S) [place] nasal spray 00 INTO EACH Med ical NOSTRIL Branch TWICE A DAY. Azelastine 2021-09 Yes INSTILL [facility] 205.5 mcg 2-10 TWO (2) ity of (0.15 %) 00:00: SPRAY(S) [place] nasal spray 00 INTO EACH Med ical NOSTRIL Branch TWICE A DAY. Azelastine 2021-09 Yes INSTILL [facility] 205.5 mcg 2-10 TWO (2) ity of (0.15 %) 00:00: SPRAY(S) [place] nasal spray 00 INTO EACH Med ical NOSTRIL Branch TWICE A DAY. Azelastine 2021-09 Yes INSTILL [facility] 205.5 mcg 2-10 TWO (2) ity of (0.15 %) 00:00: SPRAY(S) [place] nasal spray 00 INTO EACH Med ical NOSTRIL Branch TWICE A DAY. Azelastine 2021-09 Yes INSTILL [facility] 205.5 mcg 2-10 TWO (2) ity of (0.15 %) 00:00: SPRAY(S) [place] nasal spray 00 INTO EACH Med ical NOSTRIL Branch TWICE A DAY. Azelastine 2021-09 Yes INSTILL [facility] 205.5 mcg 2-10 TWO (2) ity of (0.15 %) 00:00: SPRAY(S) [place] nasal spray 00 INTO EACH Med ical NOSTRIL Branch TWICE A DAY. Azelastine 2021-09 Yes INSTILL [facility] 205.5 mcg 2-10 TWO (2) ity of (0.15 %) 00:00: SPRAY(S) [place] nasal spray 00 INTO EACH Med ical NOSTRIL Branch TWICE A DAY. Azelastine 2021-09 Yes INSTILL [facility] 205.5 mcg 2-10 TWO (2) ity of (0.15 %) 00:00: SPRAY(S) [place] nasal spray 00 INTO EACH Med ical NOSTRIL Branch TWICE A DAY. Azelastine 2021-09 Yes INSTILL [facility] 205.5 mcg 2-10 TWO (2) ity of (0.15 %) 00:00: SPRAY(S) [place] nasal spray 00 INTO EACH Med ical NOSTRIL Branch TWICE A DAY. Azelastine 2021-09 Yes INSTILL [facility] 205.5 mcg 2-10 TWO (2) ity of (0.15 %) 00:00: SPRAY(S) [place] nasal spray 00 INTO EACH Med ical NOSTRIL Branch TWICE A DAY. Azelastine 2021-09 Yes INSTILL [facility] 205.5 mcg 2-10 TWO (2) ity of (0.15 %) 00:00: SPRAY(S) [place] nasal spray 00 INTO EACH Med ical NOSTRIL Branch TWICE A DAY. Azelastine 2021-09 Yes INSTILL [facility] 205.5 mcg 2-10 TWO (2) ity of (0.15 %) 00:00: SPRAY(S) [place] nasal spray 00 INTO EACH Med ical NOSTRIL Branch TWICE A DAY. loratadine 2021-09 Yes 10mg Take 10 mg U nivers 10 mg 2-02 by mouth ity of tablet 00:00: in the [place] 00 morning. [facility] Branch loratadine 2021-09 Yes 10mg Take 10 mg U nivers 10 mg 2-02 by mouth ity of tablet 00:00: in the [place] morning. [facility] Branch loratadine 2021-09 Yes 10mg Take 10 mg U nivers 10 mg 2-02 by mouth ity of tablet 00:00: in the [place] morning. [facility] loratadine 2021-09 Yes 10mg Take 10 mg U nivers 10 mg 2-02 by mouth ity of tablet 00:00: in the [place] morning. [facility] loratadine 2021-09 Yes 10mg Take 10 mg [facility] nivers 10 mg 2-02 by mouth ity of tablet 00:00: in the [place] morning. [facility] loratadine 2021-09 Yes 10mg Take 10 mg [facility] nivers 10 mg 2-02 by mouth ity of tablet 00:00: in the [place] morning. [facility] loratadine 2021-09 Yes 10mg Take 10 mg U nivers 10 mg 2-02 by mouth ity of tablet 00:00: in the [place] morning. [facility] loratadine 2021-09 Yes 10mg Take 10 mg [facility] nivers 10 mg 2-02 by mouth ity of tablet 00:00: in the [place] morning. [facility] loratadine 2021-09 Yes 10mg Take 10 mg [facility] 10 mg 2-02 by mouth ity of tablet 00:00: in the [place] 00 morning. [facility] loratadine 2021-09 Yes 10mg Take 10 mg U nivers 10 mg 2-02 by mouth ity of tablet 00:00: in the [place] morning. [facility] loratadine 2021-09 Yes 10mg Take 10 mg [facility] 10 mg 2-02 by mouth ity of tablet 00:00: in the [place] 00 morning. [facility] loratadine 2021- Yes 10mg Take 10 mg U nivers 10 mg 2-02 by mouth ity of tablet 00:00: in the [place] 00 morning. [facility] loratadine 2021- Yes 10mg Take 10 mg [facility] nivers 10 mg 2-02 by mouth ity of tablet 00:00: in the [place] 00 morning. [facility] loratadine 2021- Yes 10mg Take 10 mg U n[facility] 10 mg 2-02 by mouth ity of tablet 00:00: in the [place] 00 morning. [facility] loratadine 2021- Yes 10mg Take 10 mg [facility] nivers 10 mg 2-02 by mouth ity of tablet 00:00: in the [place] 00 morning. [facility] loratadine 2021- Yes 10mg Take 10 mg [facility] nivers 10 mg 2-02 by mouth ity of tablet 00:00: in the [place] morning. [facility] loratadine 2021- Yes 10mg Take 10 mg U nivers 10 mg 2-02 by mouth ity of tablet 00:00: in the [place] 00 morning. [facility] loratadine 2021- Yes 10mg Take 10 mg U nivers 10 mg 2-02 by mouth ity of tablet 00:00: in the [place] 00 morning. [facility] loratadine 2021- Yes 10mg Take 10 mg U nivers 10 mg 2-02 by mouth ity of tablet 00:00: in the [place] 00 morning. [facility] loratadine 2021- Yes 10mg Take 10 mg U nivers 10 mg 2-02 by mouth ity of tablet 00:00: in the [place] 00 morning. [facility] loratadine 2021-1 Yes 10mg Take 10 mg [facility] nivers 10 mg 2-02 by mouth ity of tablet 00:00: in the [place] 00 morning. [facility] loratadine 2021-1 Yes 10mg Take 10 mg [facility] 10 mg 2-02 by mouth ity of tablet 00:00: in the [place] 00 morning. [facility] loratadine 2021-1 Yes 10mg Take 10 mg [facility]ivers 10 mg 2-02 by mouth ity of tablet 00:00: in the [place] 00 morning. [facility] loratadine 2021-09 Yes 10mg Take 1 [facility] rs 10 mg 2-02 tablet by ity of tablet 00:00: mouth in [place] the Medical morning. Branch loratadine 2021-09 Yes 10mg Take 1 [facility] 10 mg 2-02 tablet by ity of tablet 00:00: mouth in [place] the Medical morning. Branch loratadine 2021-09 Yes 10mg Take 1 [facility] 10 mg 2-02 tablet by ity of tablet 00:00: mouth in [place] the Medical morning. Branch loratadine 2021-09 Yes 10mg Take 1 [facility] 10 mg 2-02 tablet by ity of tablet 00:00: mouth in [place] the Medical morning. Branch loratadine 2021-09 Yes 10mg Take 1 [facility] 10 mg 2-02 tablet by ity of tablet 00:00: mouth in [place] the Medical morning. Branch loratadine 2021-09 Yes 10mg Take 1 [facility] 10 mg 2-02 tablet by ity of tablet 00:00: mouth in [place] the Medical morning. Branch loratadine 2021-09 Yes 10mg Take 1 [facility] 10 mg 2-02 tablet by ity of tablet 00:00: mouth in [place] the Medical morning. Branch loratadine 2021-09 Yes 10mg Take 1 [facility] 10 mg 2-02 tablet by ity of tablet 00:00: mouth in [place] the Medical morning. Branch loratadine 2021-09 Yes 10mg Take 1 [facility] 10 mg 2-02 tablet by ity of tablet 00:00: mouth in [place] the Medical morning. Branch loratadine 2021-09 Yes 10mg Take 1 [facility] 10 mg 2-02 tablet by ity of tablet 00:00: mouth in [place] the [facility] morning. Branch loratadine 2021-09 Yes 10mg Take 1 [facility] 10 mg 2-02 tablet by ity of tablet 00:00: mouth in [place] the [facility] morning. Branch loratadine 2021-09 Yes 10mg Take 10 mg U nivers 10 mg 2-02 by mouth ity of tablet 00:00: in the [place] 00 morning. [facility] losartan 25 2021-09 Yes TAKE 1/2 Un brian mg tablet 1-20 TABLET BY ity o f 00:00: MOUTH ONCE [place] 00 DAILY. [facility] losartan 25 2021-09 Yes TAKE 1/2 [facility] mg tablet 1-20 TABLET BY ity o f 00:00: MOUTH ONCE [place] 00 DAILY. [facility] losartan 25 2021-09 Yes TAKE 1/2 [facility] mg tablet 1-20 TABLET BY ity o f 00:00: MOUTH ONCE [place] 00 DAILY. [facility] losartan 25 2021-09 Yes TAKE 1/2 [facility] mg tablet 1-20 TABLET BY ity o f 00:00: MOUTH ONCE [place] 00 DAILY. [facility] losartan 25 2021-09 Yes TAKE 1/2 [facility] mg tablet 1-20 TABLET BY ity o f 00:00: MOUTH ONCE [place] 00 DAILY. [facility] losartan 25 2021-09 Yes TAKE 1/2 [facility] mg tablet 1-20 TABLET BY ity o f 00:00: MOUTH ONCE [place] 00 DAILY. [facility] losartan 25 2021-09 Yes TAKE 1/2 [facility] mg tablet 1-20 TABLET BY ity o f 00:00: MOUTH ONCE [place] 00 DAILY. [facility] losartan 25 2021-09 Yes TAKE 1/2 [facility] mg tablet 1-20 TABLET BY ity o f 00:00: MOUTH ONCE [place] 00 DAILY. [facility] losartan 25 2021-09 Yes TAKE 1/2 [facility] mg tablet 1-20 TABLET BY ity o f 00:00: MOUTH ONCE [place] 00 DAILY. [facility] losartan 25 2021-09 Yes TAKE 1/2 [facility] mg tablet 1-20 TABLET BY ity o f 00:00: MOUTH ONCE [place] 00 DAILY. [facility] losartan 25 2021-09 Yes TAKE 1/2 [facility] mg tablet 1-20 TABLET BY ity o f 00:00: MOUTH ONCE [place] 00 DAILY. [facility] losartan 25 2021-09 Yes TAKE 1/2 [facility] mg tablet 1-20 TABLET BY ity o f 00:00: MOUTH ONCE [place] 00 DAILY. [facility] losartan 25 2021-09 Yes TAKE 1/2 [facility] mg tablet 1-20 TABLET BY ity o f 00:00: MOUTH ONCE [place] 00 DAILY. [facility] losartan 25 2021-09 Yes TAKE 1/2 [facility] mg tablet 1-20 TABLET BY ity o f 00:00: MOUTH ONCE [place] 00 DAILY. [facility] losartan 25 2021-09 Yes TAKE 1/2 [facility] mg tablet 1-20 TABLET BY ity o f 00:00: MOUTH ONCE [place] 00 DAILY. [facility] losartan 25 2021-09 Yes TAKE 1/2 [facility] mg tablet 1-20 TABLET BY ity o f 00:00: MOUTH ONCE [place] 00 DAILY. [facility] losartan 25 2021-09 Yes TAKE 1/2 [facility] mg tablet 1-20 TABLET BY ity o f 00:00: MOUTH ONCE [place] 00 DAILY. [facility] losartan 25 2021-09 Yes TAKE 1/2 [facility] mg tablet 1-20 TABLET BY ity o f 00:00: MOUTH ONCE [place] 00 DAILY. [facility] losartan 25 2021-09 Yes TAKE 1/2 [facility] mg tablet 1-20 TABLET BY ity o f 00:00: MOUTH ONCE [place] 00 DAILY. [facility] losartan 25 2021-09 Yes TAKE 1/2 [facility] mg tablet 1-20 TABLET BY ity o f 00:00: MOUTH ONCE [place] 00 DAILY. [facility] losartan 25 2021-09 Yes TAKE 1/2 [facility] mg tablet 1-20 TABLET BY ity o f 00:00: MOUTH ONCE [place] 00 DAILY. [facility] losartan 25 2021-09 Yes TAKE 1/2 [facility] mg tablet 1-20 TABLET BY ity o f 00:00: MOUTH ONCE [place] 00 DAILY. [facility] losartan 25 2021-09 Yes TAKE 1/2 [facility] mg tablet 1-20 TABLET BY ity o f 00:00: MOUTH ONCE [place] 00 DAILY. [facility] losartan 25 2021-09 Yes TAKE 1/2 [facility] mg tablet 1-20 TABLET BY ity o f 00:00: MOUTH ONCE [place] 00 DAILY. [facility] losartan 25 2021-09 Yes TAKE 1/2 [facility] mg tablet 1-20 TABLET BY ity o f 00:00: MOUTH ONCE [place] 00 DAILY. [facility] losartan 25 2021-09 Yes TAKE 1/2 [facility] mg tablet 1-20 TABLET BY ity o f 00:00: MOUTH ONCE [place] 00 DAILY. [facility] losartan 25 2021-09 Yes TAKE 1/2 [facility] mg tablet 1-20 TABLET BY ity o f 00:00: MOUTH ONCE [place] 00 DAILY. [facility] losartan 25 2021-09 Yes TAKE 1/2 [facility] mg tablet 1-20 TABLET BY ity o f 00:00: MOUTH ONCE [place] 00 DAILY. [facility] losartan 25 2021-09 Yes TAKE 1/2 [facility] mg tablet 1-20 TABLET BY ity o f 00:00: MOUTH ONCE 00 DAILY. [facility] losartan 25 2021-09 Yes TAKE 1/2 [facility] mg tablet 1-20 TABLET BY ity o f 00:00: MOUTH ONCE 00 DAILY. [facility] losartan 25 2021-09 Yes TAKE 1/2 [facility] mg tablet 1-20 TABLET BY ity o f 00:00: MOUTH ONCE 00 DAILY. [facility] losartan 25 2021-09 Yes TAKE 1/2 [facility] mg tablet 1-20 TABLET BY ity o f 00:00: MOUTH ONCE 00 DAILY. [facility] losartan 25 2021-09 Yes TAKE 1/2 [facility] mg tablet 1-20 TABLET BY ity o f 00:00: MOUTH ONCE 00 DAILY. [facility] losartan 25 2021-09 Yes TAKE 1/2 [facility] mg tablet 1-20 TABLET BY ity o f 00:00: MOUTH ONCE 00 DAILY. [facility] losartan 25 2021-09 Yes TAKE 1/2 [facility] mg tablet 1-20 TABLET BY ity o f 00:00: MOUTH ONCE DAILY. [facility] No known No No known Unive rs medications 8-31 medication it y of 18:39: s 06 [facility] Budesonide Yes [id number] 2{puff} Inhale 2 [facility] 90 8-31 Puffs ity of mcg/actuati 00:00: every 12 [place] on aerosol 00 (twelve) Medic al powder hours as Branch needed (WHEZING/S OB). predniSONE Yes [id number] TAKE ONE [facility] 20 mg 8-31 TABLET ity of tablet 00:00: DAILY FOR 5 DAYS [facility] Budesonide Yes [id number] 2{puff} Inhale 2 [facility] 90 8-31 Puffs ity of mcg/actuati 00:00: every 12 [place] on aerosol 00 (twelve) Medic al powder hours as Branch needed (WHEZING/S OB). predniSONE Yes [id number] TAKE ONE [facility] 20 mg 8-31 TABLET ity of tablet 00:00: DAILY FOR 5 DAYS [facility] Budesonide Yes [id number] 2{puff} Inhale 2 [facility] 90 8-31 Puffs ity of mcg/actuati 00:00: every 12 [place] on aerosol 00 (twelve) Medic al powder hours as Branch needed (WHEZING/S OB). predniSONE Yes [id number] TAKE ONE [facility] 20 mg 8-31 TABLET ity of tablet 00:00: DAILY FOR Medical [facility] Budesonide Yes [id number] 2{puff} Inhale 2 [facility] 90 8-31 Puffs ity of mcg/actuati 00:00: every 12 [place] on aerosol 00 (twelve) Medic al powder hours as Branch needed (WHEZING/S OB). predniSONE Yes [id number] TAKE ONE [facility] 20 mg 8-31 TABLET ity of tablet 00:00: DAILY FOR Medical [facility] Budesonide Yes [id number] 2{puff} Inhale 2 [facility] 90 8-31 Puffs ity of mcg/actuati 00:00: every 12 [place] on aerosol 00 (twelve) Medic al powder hours as Branch needed (WHEZING/S OB). predniSONE Yes [id number] TAKE ONE [facility] 20 mg 8-31 TABLET ity of tablet 00:00: DAILY FOR Medical [facility] Budesonide Yes [id number] 2{puff} Inhale 2 [facility] 90 8-31 Puffs ity of mcg/actuati 00:00: every 12 [place] on aerosol 00 (twelve) Medic al powder hours as Branch needed (WHEZING/S OB). predniSONE Yes [id number] TAKE ONE [facility] 20 mg 8-31 TABLET ity of tablet 00:00: DAILY FOR Medical Branch Budesonide Yes [id number] 2{puff} Inhale 2 [facility] 90 8-31 Puffs ity of mcg/actuati 00:00: every 12 [place] on aerosol 00 (twelve) Medic al powder hours as Branch needed (WHEZING/S OB). predniSONE Yes [id number] TAKE ONE [facility] 20 mg 8-31 TABLET ity of tablet 00:00: DAILY FOR Medical [facility] Budesonide Yes [id number] 2{puff} Inhale 2 [facility] 90 8-31 Puffs ity of mcg/actuati 00:00: every 12 [place] on aerosol 00 (twelve) Medic al powder hours as Branch needed (WHEZING/S OB). predniSONE Yes [id number] TAKE ONE [facility] 20 mg 8-31 TABLET ity of tablet 00:00: DAILY FOR [facility] Budesonide Yes [id number] 2{puff} Inhale 2 [facility] 90 8-31 Puffs ity of mcg/actuati 00:00: every 12 [place] on aerosol 00 (twelve) Medic al powder hours as Branch needed (WHEZING/S OB). predniSONE Yes [id number] TAKE ONE [facility] 20 mg 8-31 TABLET ity of tablet 00:00: DAILY FOR [facility] Budesonide Yes [id number] 2{puff} Inhale 2 [facility] 90 8-31 Puffs ity of mcg/actuati 00:00: every 12 [place] on aerosol 00 (twelve) Medic al powder hours as Branch needed (WHEZING/S OB). predniSONE Yes [id number] TAKE ONE [facility] 20 mg 8-31 TABLET ity of tablet 00:00: DAILY FOR [facility] Budesonide Yes [id number] 2{puff} Inhale 2 [facility] 90 8-31 Puffs ity of mcg/actuati 00:00: every 12 [place] on aerosol 00 (twelve) Medic al powder hours as Branch needed (WHEZING/S OB). predniSONE Yes [id number] TAKE ONE [facility] 20 mg 8-31 TABLET ity of tablet 00:00: DAILY FOR [facility] Budesonide Yes [id number] 2{puff} Inhale 2 [facility] 90 8-31 Puffs ity of mcg/actuati 00:00: every 12 [place] on aerosol 00 (twelve) Medic al powder hours as Branch needed (WHEZING/S OB). predniSONE Yes [id number] TAKE ONE [facility] 20 mg 8-31 TABLET ity of tablet 00:00: DAILY FOR [facility] Budesonide Yes [id number] 2{puff} Inhale 2 [facility] 90 8-31 Puffs ity of mcg/actuati 00:00: every 12 [place] on aerosol 00 (twelve) Medic al powder hours as Branch needed (WHEZING/S OB). predniSONE Yes [id number] TAKE ONE [facility] 20 mg 8-31 TABLET ity of tablet 00:00: DAILY FOR [facility] Budesonide Yes [id number] 2{puff} Inhale 2 [facility] 90 8-31 Puffs ity of mcg/actuati 00:00: every 12 [place] on aerosol 00 (twelve) Medic al powder hours as Branch needed (WHEZING/S OB). predniSONE Yes [id number] TAKE ONE [facility] 20 mg 8-31 TABLET ity of tablet 00:00: DAILY FOR [facility] Branch Budesonide Yes [id number] 2{puff} Inhale 2 [facility] 90 8-31 Puffs ity of mcg/actuati 00:00: every 12 [place] on aerosol 00 (twelve) Medic al powder hours as Branch needed (WHEZING/S OB). predniSONE Yes [id number] TAKE ONE [facility] 20 mg 8-31 TABLET ity of tablet 00:00: DAILY FOR [facility] Budesonide Yes [id number] 2{puff} Inhale 2 [facility] 90 8-31 Puffs ity of mcg/actuati 00:00: every 12 [place] on aerosol 00 (twelve) Medic al powder hours as Branch needed (WHEZING/S OB). predniSONE Yes [id number] TAKE ONE [facility] 20 mg 8-31 TABLET ity of tablet 00:00: DAILY FOR [facility] Budesonide Yes [id number] 2{puff} Inhale 2 [facility] 90 8-31 Puffs ity of mcg/actuati 00:00: every 12 [place] on aerosol 00 (twelve) Medic al powder hours as Branch needed (WHEZING/S OB). predniSONE Yes [id number] TAKE ONE [facility] 20 mg 8-31 TABLET ity of tablet 00:00: DAILY FOR [facility] Branch Budesonide Yes [id number] 2{puff} Inhale 2 [facility] 90 8-31 Puffs ity of mcg/actuati 00:00: every 12 [place] on aerosol 00 (twelve) Medic al powder hours as Branch needed (WHEZING/S OB). predniSONE Yes [id number] TAKE ONE [facility] 20 mg 8-31 TABLET ity of tablet 00:00: DAILY FOR 5 [facility] Branch Budesonide Yes [id number] 2{puff} Inhale 2 [facility] 90 8-31 Puffs ity of mcg/actuati 00:00: every 12 [place] on aerosol 00 (twelve) Medic al powder hours as Branch needed (WHEZING/S OB). predniSONE Yes [id number] TAKE ONE [facility] 20 mg 8-31 TABLET ity of tablet 00:00: DAILY FOR [facility] Budesonide Yes [id number] 2{puff} Inhale 2 [facility] 90 8-31 Puffs ity of mcg/actuati 00:00: every 12 [place] on aerosol 00 (twelve) Medic al powder hours as Branch needed (WHEZING/S OB). Budesonide Yes [id number] 2{puff} Inhale 2 [facility] 90 8-31 Puffs ity of mcg/actuati 00:00: every 12 [place] on aerosol 00 (twelve) Medic al powder hours as Branch needed (WHEZING/S OB). predniSONE Yes [id number] TAKE ONE [facility] 20 mg 8-31 TABLET ity of tablet 00:00: DAILY FOR Medical Branch predniSONE 2021- Yes [id number] TAKE ONE [facility] 20 mg 8-31 TABLET ity of tablet 00:00: DAILY FOR [facility] Budesonide Yes [id number] 2{puff} Inhale 2 [facility] 90 8-31 Puffs ity of mcg/actuati 00:00: every 12 [place] on aerosol 00 (twelve) Medic al powder hours as Branch needed (WHEZING/S OB). predniSONE Yes [id number] TAKE ONE [facility] 20 mg 8-31 TABLET ity of tablet 00:00: DAILY FOR 5 [facility] Branch Budesonide Yes [id number] 2{puff} Inhale 2 [facility] 90 8-31 Puffs ity of mcg/actuati 00:00: every 12 [place] on aerosol 00 (twelve) Medic al powder hours as Branch needed (WHEZING/S OB). predniSONE Yes [id number] TAKE ONE [facility] 20 mg 8-31 TABLET ity of tablet 00:00: DAILY FOR Medical Branch Budesonide Yes [id number] 2{puff} Inhale 2 [facility] 90 8-31 Puffs ity of mcg/actuati 00:00: every 12 [place] on aerosol 00 (twelve) Medic al powder hours as Branch needed (WHEZING/S OB). predniSONE Yes [id number] TAKE ONE [facility] 20 mg 8-31 TABLET ity of tablet 00:00: DAILY FOR Medical Branch Budesonide Yes [id number] 2{puff} Inhale 2 [facility] 90 8-31 Puffs ity of mcg/actuati 00:00: every 12 [place] on aerosol 00 (twelve) Medic al powder hours as Branch needed (WHEZING/S OB). predniSONE Yes [id number] TAKE ONE [facility] 20 mg 8-31 TABLET ity of tablet 00:00: DAILY FOR Medical Branch Budesonide Yes [id number] 2{puff} Inhale 2 [facility] 90 8-31 Puffs ity of mcg/actuati 00:00: every 12 [place] on aerosol 00 (twelve) Medic al powder hours as Branch needed (WHEZING/S OB). predniSONE Yes [id number] TAKE ONE [facility] 20 mg 8-31 TABLET ity of tablet 00:00: DAILY FOR Medical Branch Budesonide Yes [id number] 2{puff} Inhale 2 [facility] 90 8-31 Puffs ity of mcg/actuati 00:00: every 12 [place] on aerosol 00 (twelve) Medic al powder hours as Branch needed (WHEZING/S OB). predniSONE Yes [id number] TAKE ONE [facility] 20 mg 8-31 TABLET ity of tablet 00:00: DAILY FOR Medical Branch Budesonide Yes [id number] 2{puff} Inhale 2 [facility] 90 8-31 Puffs ity of mcg/actuati 00:00: every 12 [place] on aerosol 00 (twelve) Medic al powder hours as Branch needed (WHEZING/S OB). predniSONE Yes [id number] TAKE ONE [facility] 20 mg 8-31 TABLET ity of tablet 00:00: DAILY FOR Medical Branch Budesonide Yes [id number] 2{puff} Inhale 2 [facility] 90 8-31 Puffs ity of mcg/actuati 00:00: every 12 [place] on aerosol 00 (twelve) Medic al powder hours as Branch needed (WHEZING/S OB). Budesonide Yes [id number] 2{puff} Inhale 2 [facility] 90 8-31 Puffs ity of mcg/actuati 00:00: every 12 [place] on aerosol 00 (twelve) Medic al powder hours as Branch needed (WHEZING/S OB). predniSONE 2021- Yes [id number] TAKE ONE [facility] 20 mg 8-31 TABLET ity of tablet 00:00: DAILY FOR Medical Branch predniSONE 2021- Yes [id number] TAKE ONE [facility] 20 mg 8-31 TABLET ity of tablet 00:00: DAILY FOR [facility] Branch Budesonide Yes [id number] 2{puff} Inhale 2 [facility] 90 8-31 Puffs ity of mcg/actuati 00:00: every 12 [place] on aerosol 00 (twelve) Medic al powder hours as Branch needed (WHEZING/S OB). predniSONE 2021- Yes [id number] TAKE ONE [facility] 20 mg 8-31 TABLET ity of tablet 00:00: DAILY FOR Medical Branch Budesonide Yes [id number] 2{puff} Inhale 2 [facility] 90 8-31 Puffs ity of mcg/actuati 00:00: every 12 [place] on aerosol 00 (twelve) Medic al powder hours as Branch needed (WHEZING/S OB). predniSONE 2021- Yes [id number] TAKE ONE [facility] 20 mg 8-31 TABLET ity of tablet 00:00: DAILY FOR Medical Branch Budesonide Yes [id number] 2{puff} Inhale 2 [facility] 90 8-31 Puffs ity of mcg/actuati 00:00: every 12 [place] on aerosol 00 (twelve) Medic al powder hours as Branch needed (WHEZING/S OB). predniSONE Yes [id number] TAKE ONE [facility] 20 mg 8-31 TABLET ity of tablet 00:00: DAILY FOR [facility] Branch Budesonide Yes [id number] 2{puff} Inhale 2 [facility] 90 8-31 Puffs ity of mcg/actuati 00:00: every 12 [place] on aerosol 00 (twelve) Medic al powder hours as Branch needed (WHEZING/S OB). predniSONE Yes [id number] TAKE ONE [facility] 20 mg 8-31 TABLET ity of tablet 00:00: DAILY FOR [facility] Branch Budesonide Yes [id number] 2{puff} Inhale 2 [facility] 90 8-31 Puffs ity of mcg/actuati 00:00: every 12 [place] on aerosol 00 (twelve) Medic al powder hours as Branch needed (WHEZING/S OB). predniSONE Yes [id number] TAKE ONE [facility] 20 mg 8-31 TABLET ity of tablet 00:00: DAILY FOR [facility] Budesonide Yes [id number] 2{puff} Inhale 2 [facility] 90 8-31 Puffs ity of mcg/actuati 00:00: every 12 [place] on aerosol 00 (twelve) Medic al powder hours as Branch needed (WHEZING/S OB). predniSONE Yes [id number] TAKE ONE [facility] 20 mg 8-31 TABLET ity of tablet 00:00: DAILY FOR [facility] Budesonide Yes [id number] 2{puff} Inhale 2 [facility] 90 8-31 Puffs ity of mcg/actuati 00:00: every 12 [place] aerosol 00 (twelve) Medic al powder hours as Branch needed (WHEZING/S OB). predniSONE Yes [id number] TAKE ONE [facility] 20 mg 8-31 TABLET ity of tablet 00:00: DAILY FOR [place] [facility] Vital Signs Vital Name Observation Time Observation Value Comments Source Systolic blood 2023-02-16 15:14:00 136 mm[Hg] Univer sity of pressure [facility] Diastolic blood 2023-02-16 15:14:00 90 mm[Hg] Unive rsity of pressure [place] [facility] Heart rate 2023-02-16 15:14:00 83 /min [facility] [place] [facility] Respiratory rate 2023-02-16 15:14:00 18 /min [facility] [place] [facility] Body height 2023-02-16 15:14:00 157.5 cm [facility] [place] [facility] Body weight 2023-02-16 15:14:00 104.463 kg [facility] [place] [facility] BMI 2023-02-16 15:14:00 42.12 kg/m2 [facility] [place] [facility] Systolic blood 2022-12-15 14:57:00 131 mm[Hg] Univer sity of pressure [place] [facility] Diastolic blood 2022-12-15 14:57:00 88 mm[Hg] Unive rsity of pressure [place] [facility] Heart rate 2022-12-15 14:57:00 81 /min [facility] [place] [facility] Body height 2022-12-15 14:57:00 160 cm [facility] [place] [facility] Body weight 2022-12-15 14:57:00 104.01 kg [facility] [place] [facility] BMI 2022-12-15 14:57:00 40.62 kg/m2 [facility] [place] [facility] Systolic blood 2022-11-06 19:50:00 116 mm[Hg] Univer sity of pressure [place] [facility] Diastolic blood 2022-11-06 19:50:00 79 mm[Hg] Unive rsity of pressure [place] [facility] Heart rate 2022-11-06 19:50:00 78 /min [facility] [place] [facility] Body height 2022-11-06 19:50:00 160 cm [facility] [place] [facility] Body weight 2022-11-06 19:50:00 103.42 kg [facility] [place] [facility] BMI 2022-11-06 19:50:00 40.39 kg/m2 [facility] [place] [facility] Oxygen saturation in 2022-11-06 19:50:00 98 /min [facility] Arterial blood by [facility] [facility] Systolic blood 2022-10-20 21:39:00 140 mm[Hg] [facility] Diastolic blood 2022-10-20 21:39:00 89 mm[Hg] [facility]ive [facility] Heart rate 2022-10-20 21:39:00 99 /min [facility] Body height 2022-10-20 21:39:00 160 cm [facility] Body weight 2022-10-20 21:39:00 102.059 kg [facility] BMI 2022-10-20 21:39:00 39.86 kg/m2 [facility] Oxygen saturation in 2022-10-20 21:39:00 99 /min [facility] of Arterial blood by [place] [facility] o[facility] Systolic blood 2022-05-07 00:10:00 142 mm[Hg] [facility] Diastolic blood 2022-05-07 00:10:00 95 mm[Hg] [facility] Heart rate 2022-05-07 00:10:00 90 /min [facility] Body temperature 2022-05-07 00:10:00 36.22 Leslye [facility] Respiratory rate 2022-05-07 00:10:00 20 /min [facility] Body height 2022-05-07 00:10:00 160 cm [facility] Body weight 2022-05-07 00:10:00 102.558 kg [facility] BMI 2022-05-07 00:10:00 40.05 kg/m2 [facility] Oxygen saturation in 2022-05-07 00:10:00 100 /min University of Arterial blood by [place] [facility] Systolic blood 2022-05-06 23:14:00 151 mm[Hg] [facility] Diastolic blood 2022-05-06 23:14:00 108 mm[Hg] [facility] Heart rate 2022-05-06 23:14:00 110 /min [facility] Body temperature 2022-05-06 23:14:00 36.61 Leslye [facility] Respiratory rate 2022-05-06 23:14:00 28 /min [facility] Body height 2022-05-06 23:14:00 160 cm [facility] Body weight 2022-05-06 23:14:00 102.059 kg [facility] BMI 2022-05-06 23:14:00 39.86 kg/m2 [facility] Oxygen saturation in 2022-05-06 23:14:00 100 /min University Arterial blood by [facility] Procedures Procedure Date / Time Performed Performing Clinician [facility] e REFERRAL- 2023-01-27 05:01:00 Doctor Unassigned, No [facility] [place] REQUEST/RESPONSE Name Medical [place] EXTERNAL PROVIDER 2023-01-04 05:01:00 Doctor Unassigned, No [facility] [place] RECORDS Name Medical Branch EXTERNAL PROVIDER 2022-12-22 05:01:00 Doctor Unassigned, No [facility] [place] RECORDS Name Medical Branch EXTERNAL PROVIDER 2022-12-08 05:01:00 Doctor Unassigned, No [facility] [place] RECORDS Name [facility] MR BRAIN W WO CONTRAST 2022-10-23 19:56:37 Zaheer Boss [facility] REFERRAL- 2022-10-19 06:01:00 Doctor Unassigned, No [facility] [place] REQUEST/RESPONSE Name [facility] CONSENT/REFUSAL FOR 2022-05-06 23:40:16 Doctor Unassigned, No [facility] AND Name [facility] [place] TREATMENT ASSIGNMENT OF BENEFITS 2022-05-06 23:09:59 Doctor Unassigned, No [facility] Name [facility] Encounters Start End Encounter Admission Attending Care Care Encounter Source Date/Time Date/Time Type Type Clinicians Facility Department ID 2023-04-24 2023-04-24 Anjel Boss VARANDAL 1.2.840.114 [id number] [facility] 00:00:00 00:00:00 Chatwala [facility] 350.1.13.10 ity ara MATHEWS 4.2.7.2.686 Corona as CARLOS?BLEA [phone] Mi flaquita PETER 2 [place] MEDICAL OFFICE BUILDING 2023-04-01 2023-04-01 Outpatient GC_GCBZW_Ka PRIV PRIV [id number] [facility] 00:00:00 00:00:00 theo_Joyce [id number] Medic al 2023-03-18 2023-03-18 Outpatient GC_GCBZW_Ka PRIV PRIV [id number] [facility] 00:00:00 00:00:00 diyala_S [id number] Medic al 2023-03-16 2023-03-16 Outpatient GC_GCBZW_Ka PRIV PRIV [id number] [facility] 00:00:00 00:00:00 diyala_S [id number] Medic al 2023-03-16 2023-03-16 Outpatient GC_GCBZW_Ka PRIV PRIV [id number] [facility] 00:00:00 00:00:00 diyala_S [id number] Medic al 2023-03-15 2023-03-15 Outpatient GC_GCBZW_Ka PRIV PRIV [id number] [facility] 00:00:00 00:00:00 diyala_S [id number] Medic al 2023-03-14 2023-03-14 Outpatient GC_GCBZW_Ka PRIV PRIV [id number] [facility] 00:00:00 00:00:00 diyala_S [id number] Medic al 2023-03-11 2023-03-11 Outpatient JIMENEZ Sánchez [facility] CHARLEY [id number] [facility] 05:25:00 05:25:00 Mechelle Muñoz [facility] 2023-03-10 2023-03-10 [address]840.114 [id number] Univers 00:00:00 00:00:00 [facility] 350.1.13.10 ity of [place] 4.2.7.2.686 [place] as CRALOS?BLEA [phone] [address] OFFICE [facility] 2023-02-26 2023-02-26 Telephone [facility] 12.840.114 [id number] Univers 00:00:00 00:00:00 [facility] 350.1.13.10 ity of [place] 4.2.7.2.686 Corona as CARLOS?BLEA [id number] [address] OFFICE [facility] 2023-02-16 2023-02-16 [facility] [id number] Univers 10:00:00 10:52:33 LUISITO ity of [facility] 2023-02-16 2023-02-16 Office Margie [facility] 1.2.840.114 [id number] Univers 10:00:00 10:52:33 Visit Luisito HEALTH 350.1.13.10 it y of [place] 4.2.7.2.686 Corona as CARLOS?BLEA [phone] [address] MEDICAL OFFICE [facility] 2023-01-27 2023-01-27 Orders Doctor CHARISSE 1.2.840.114 [id number] Univers 00:00:00 00:00:00 Only Unassigned, ROLAND 350.1.13.10 ity of [place] [facility] 4.2.7.2.686 Corona as [id number] [address] 2023-01-15 2023-01-15 Patient Doctor CHARISSE 1.2.840.114 [id number] Univers 00:00:00 00:00:00 Secure Msg Unassigned, ROLAND 350.1.13.10 ity of [place] [facility] 4.2.7.2.686 [place] as [phone] [address] 2023-01-04 2023-01-04 Orders Doctor CHARISSE 1.2.840.114 [id number] Univers 00:00:00 00:00:00 Only Unassigned, ROLAND 350.1.13.10 ity of [place] [facility] 4.2.7.2.686 Corona as [phone] [address] 2023-01-04 2023-01-04 Patient Doctor CHARISSE 1.2.840.114 [id number] Univers 00:00:00 00:00:00 Secure Msg Unassigned, ROLAND 350.1.13.10 ity of [place] [facility] 4.2.7.2.686 Corona as [phone] [address] 2022-12-25 2022-12-25 Telephone Karyn [facility] 1.2.840.114 [id number] Univers 00:00:00 00:00:00 Zaheer Do It In Person [facility] 350.1.13.10 ity of [place] 4.2.7.2.686 Corona as CARLOS?BLEA [phone] [address] MEDICAL OFFICE [facility] 2022-12-22 2022-12-22 Orders Doctor CHARISSE 1.2.840.114 [id number] Univers 00:00:00 00:00:00 Only Unassigned, ROLAND 350.1.13.10 ity of [place] [facility] 4.2.7.2.686 Cor[place] as [phone] [address] 2022-12-18 2022-12-18 Telephone [facility] 1.2.840.114 [id number] Univers 00:00:00 00:00:00 [facility] 350.1.13.10 [facility] 4.2.7.2.686 [place] as CARLOS?BLEA [id number] [address] OFFICE [facility] 2022-12-16 2022-12-16 [facility] 1.2.840.114 [id number] Univers 00:00:00 00:00:00 [facility] 350.1.13.10 ity of [place] 4.2.7.2.686 Corona as CARLOS?BLEA [phone] [address] OFFICE [facility] 2022-12-16 2022-12-16 Telephone [facility] 1.2.018.893 [id number] [facility] 00:00:00 00:00:00 [employer] 350.1.13.10 it y of [facility] 4.2.7.2.686 [place]ona as CARLOS?BLEA [phone] [address] OFFICE [facility] 2022-12-15 2022-12-[address] [facility] [id number] [facility] 11:00:52 11:01:00 LUISITO ity of [facility] 2022-12-15 2022-12-15 Office Luisito Hanson [facility] 1.2.840.114 [id number] Univers 10:00:00 10:58:14 Visit Karyn [facility] 350.1.13. 10 ity of [facility] 4.2.7.2.686 Corona as CALROS?BLEA [id number] [address] OFFICE [facility] 2022-12-15 2022-12-15 Telephone [facility] 1.2.256.530 [id number] Univers 00:00:00 00:00:[address] [facility] 350.1.13.10 it y of [place] 4.2.7.2.686 Corona as CARLOS?BLEA [phone] [address] 2022-12-10 2022-12-10 [facility] 1.2.840.114 [id number] Univers 00:00:00 00:00:00 [facility] 350.1.13.10 ity of [place] 4.2.7.2.686 Corona as CARLOS?BLEA [id number] [address] 2022-12-08 2022-12-08 Orders Doctor CHARISSE 1.2.840.114 [id number] Univers 00:00:00 00:00:00 Only Unassigned, ROLAND 350.1.13.10 ity of [facility] 4.2.7.2.686 [place] as [phone] [address] 2022-11-12 2022-11-12 Telephone Karyn, [facility] 1.2.840.114 [id number] Univers 00:00:00 00:00:00 [facility] 350.1.13.10 ity of [facility] 4.2.7.2.686 Corona as CARLOS?BLEA [phone] [address] 2022-11-09 2022-11-09 [facility] 1.2.840.114 [id number] Univers 00:00:00 00:00:00 [facility] 350.1.13.10 ity of [place] 4.2.7.2.686 [place] as CARLOS?BLEA [phone] [address] 2022-11-06 2022-11-06 Outpatient R [facility]AHEER [facility] [id number] Univers 13:20:00 15:02:40 ZAHEER BOSS ity of [facility] 2022-11-06 2022-11-06 Office Karyn [facility] 1.2.840.114 [id number] Univers 13:20:00 15:02:[address] 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 10 ity of [place] 4.2.7.2.686 Corona as CARLOS?BLEA [phone] Mi flaquita NIETO 353 [facility] OFFICE [facility] 2022-10-30 2022-10-[address] [facility] [id number] Univers 00:00:00 00:00:00 ZAHEER BOSS pavithra [facility] 2022-10-28 2022-10-28 Outpatient R [facility]AHEER [facility] [id number] Univers 00:00:00 00:00:00 ZAHEER BOSS pavithra [facility] 2022-10-23 2022-10-[address] [facility] [id number] Univers 12:22:43 23:59:00 ZAHEER BOSS pavithra [facility] 2022-10-23 2022-10-23 [facility] 1.2.808.563 [id number] Univers 12:22:43 23:59:00 Encounter [facility]heer [facility] 350.1.13.10 ity of [place] [id number] [facility] [address] [place] [address] 2022-10-23 2022-10-23 Telephone Karyn [facility] 1.2.840.114 [id number] Univers 00:00:00 00:00:[address] [facility] 350.1.13.10 ity of [place] 4.2.7.2.686 Corona as CARLOS?BLEA [phone] [address] OFFICE [facility] 2022-10-20 2022-10-20 Outpatient R [facility]AHEER [facility] [id number] Univers 15:00:00 17:00:04 ZAHEER BOSS [facility] 2022-10-20 2022-10-20 Office Karyn [facility] 1.2.840.114 [id number] Univers 15:00:00 17:00:[address] [facility] 350.1.13.10 ity of [place] 4.2.7.2.686 Corona as CARLOS?BLEA [phone] Mi valerialouise PETER [address] [place] MEDICAL OFFICE BUILDING 2022-10-19 2022-10-19 Orders Doctor MCQUEEN 1.2.840.114 [id number] Univers 00:00:00 00:00:00 Only Unassigned, ROLAND 350.1.13.10 ity of [place] [facility] 4.2.7.2.686 Corona as [phone] [facility] [address] [place] 2022-05-06 2022-05-06 Emergency [facility] [id number] Univers 19:35:00 20:23:00 [facility] 2022-05-06 2022-05-06 Emergency [facility] 1.2.469.054 [id number] Univers 19:35:00 20:23:[address] [facility] 350.1.13.10 ity of [place]2.7.2.[place] [id number] [facility] 0[address] [place] 2022-05-06 2022-05-[address] [facility] 1.2.840.114 [id number] Univers 18:00:00 18:20:00 Care [facility] 350.1.13.10 it y of [place] 4.2.7.2.686 Corona as CARLOS?BLEA [phone] [facility] [address] [place] MEDICAL OFFICE BUILDING 2022-05-06 2022-05-06 [facility] [id number] Univers 18:00:00 18:00:00 [facility] 2022-05-06 2022-05-06 Orders Doctor MCQUEEN 1.2.840.114 [id number] Univers 00:00:00 00:00:00 Only Unassigned, ROLAND 350.1.13.10 ity of [place] [facility] 4.2.7.2.686 Cor[place] as [phone] [address] Results Test Description Test Time Test Comments Results Result Comments Source SURGICAL 2023-03-12 14:27:00 Test Item Value Reference Range Interpretation Comme nts SURGICAL RUN DATE: (test 03/12/23 [facility] [employer] d - LAB PAGE 1 RUN TIME: 1427 Specimen Inquiry RUN USER: INTERFACE code = PATIENT: FLOWER ACUNA 437 LOC: U #: [id number] AGE/SX: 47/F ROOM: RE03/11/23[facility]: Mechelle Sánchez MD : 71 BED: DIS: STATUS: [facility] TLOC: SPEC #: [id number] RECD: 03/11/23- 1130 STATUS: EMILIANA SHEPPARD #: [id number] CONG: 03/11/[address] [facility] [address]: Mechelle Sánchez MD ENTERE SP TYPE: SURGICAL OTHR DR: ORDERED: 23799, ANATOMIC SPEC, SPECIMEN TRACK PROCEDURES: [id number] (03/11/23) SPECIMEN TRACK (03/11/23) TISSUES: A. UTERUS W/WO TUBES AND OVARIES NEOPLASTIC - UTERUS W/ CERVIX, BILATERAL OVARIES,FALLOPIAN TUBES FINAL DIAGNOSIS UTERUS, CERVIX, BILATERAL OVARIES AND FALLOPIAN TUBES, TOTAL HYSTERECTOMY AND BILATERALSALPINGO/OOPHORECTO MY:- Cervix without dysplasia.- Proliferative endometrium.- Benign endometrial polyp, 0.8 cm in greatest dimension.- Leiomyomata, 1.2 cm in greatest dimension.- Unremarkable serosa and Fall opian tubes.- Bilateral ovaries with serous cystadenofibroma on the surface, 1.0 and 3.2 cm in greatest d imension.- Specimen 78 g.- Also see corresponding cytology report (23:[facility]:CR84). GROSS DESCRIP TION Uterus with bilateral fallopian tubes and ovaries. Received is a uterus with attachedbilateral fallo pian tubes, measures cornu to cornu 7.5 cm, posterior to anterior 4.5cm and fundus to cervix 9.5 cm and weighs 78 g. The cervix is pink measuring 3.2 x 2.5. It has a stenotic cervical os. The uterus is b ivalved to a pink cervical canal measuring 4.5 cm. The endometrial cavity issomewhat triangular appear ance measuring 2.8 x 1.6 cm. It is covered by hemorrhagicendometrium of 0.2 cm. The uterine wall has a m aximum thickness of 2.3 cm. A posteriorendometrial cavity polyp is present 0.8 x 0.6 x 0.6 cm. The ante rior wall has a whitenodule measuring 0.8 x 1.5 x 1.2 cm. The serosal surface is smooth and gliste ledy withsmall nodule posterior fundus 0.5 cm. The right ovary measures 3.8 x 2.2 x 1.5 cm. Cut sections a grossly unremarkable surface. The external surface has a single nodule attached measuring 1 x 1 x 0 .9 cm. Cut sectionsreveal a cystic center. The attached fallopian tube with fimbriated end measures 6 cm inlength and has a diameter of 0.6 cm. The left ovary measures 3.7 x 2.5 x 1.6 cm. It has a multi-cysti c surface with adiposetissue measuring 3.2 x 1.5 x 0.2 cm. Cut sections reveal a clear fluid-filled cyst CONTINUED ON NEXT PAGE RUN DATE: 03/12/23 [facility] [place] d - LAB PAGE 2 RUN TIME: 1427 Specimen Inquiry RUN USER: INTERFACE SPEC #: 23:[facility]:[id number] PATIENT: FLOWER MANN #[id number] (Continued) GROSS DESCRIPTION (Continued ) measuring 1.2 x 1 x 1 cm. No papillary excrescences are identified. The adhered leftfallopian tube w ith fimbriated end measures 5.5 cm length with a diameter of 0.6 cm. A posterior cervixA1 posterior cervixA2 anterior cervixA3 posterior endomyometriumA4 anterior endomyometrium A5 posterior endometrial cavity polypA6 anterior uterine wall noduleA7 posterior wall noduleA8 posterior reflectio n A9 section of right ovary A10 cyst on right ovarian surface A11 right fallopian tube cut surface w ith bisected fimbriated vvaJ89-I33 sections of left ovary including cyst and cyst on oaylebnA70 left fall opian tube cut surface with entire bisected fimbriated end Technical tissue processing and slide prepara tion performed at [employer],[id number] , [place] [address] MICROSCOPIC DESCRIPTION Micr oscopic examination is performed and the findings are incorporated into the finaldiagnosis. Please see diagnosis for findings. Signed SIGNATURE ON FILE Cain Rojo 03/12/23 1427 END OF REPORT CYTOLOGY NON [id number] 13:53:00 Test Item Value Reference Range Interpretation Comments CYTOLOGY NON ARTIFICIAL BREAST FABRICATOR (test code = CR) RUN DATE: 03/12/23 [facility] PAGE 1 RUN TIME: 1353 Specimen Inquiry RUN USER: INTERFACE PATIENT: FLOWER MANN LOC: [facility] #: [id number] AGE/SX: 47/F ROOM: RE03/11/23REG DR: Mechelle Sánchez MD : 71 BED: DIS: STATUS: [facility] TLOC: SPEC #: [id number] RECD: 03/11/23 STATUS: EMILIANA REQ #: [id number] CONG: 03/11/[address] [facility] [address]: Mechelle Sánchez MD ENTERED: 03/11/23 SP TYPE: CYTO NGYN OTHR DR: ORDERED: [id number], 53822, ANATOMIC SPEC, SPECIMEN TRACK PROCEDURES: [id number] (03/11/23-1110) 81174 (03/12/23-1350) SPECIMEN TRACK (03/11/23) TISSUES: A. PERITONEAL WASHING (THIN PREP, CELL BLOCK) - PERITONEAL WASHINGS FINAL DIAGNOSIS PERITONEAL WASHING, CYTOLOGY AND CELL BLOCK: - Negative for malignancy. - Mesothelial cells present. - Please see corresponding surgical pathology report (23:[facility]:[id number]). GROSS DESCRIPTION Peritoneal washing. It consists of 41 cc of colorless clear fluid. It is submitted forcytologic preparation. Thin prep: 1 Cell block: 1 Technical tissue processing and slide preparation performed at [facility] [address] [address] , [place] [address] MICROSCOPIC DESCRIPTION Microscopic examination is performed and the findings are incorporated into the finaldiagnosis. Please see diagnosis for findings. - Signed SIGNATURE ON FILE Cain Rojo 03/12/23 1353 END OF REPORT BASIC METABOLIC [id number] 14:40:00 Test Item Value Reference Range Interpretation Comments SODIUM (test code 136 mmol/L 134-147 N = NA) POTASSIUM (test 3.6 mmol/L 3.4-5.0 N code = K) CHLORIDE (test 105 mmol/L 100-108 N code = CL) CARBON DIOXIDE 27 mmol/L 21-32 N (test code = CO2) ANION GAP (test 4.0 GAP calc 4.0-15.0 N code = GAP) GLUCOSE (test code 98 MG/DL 70-110 N = GLU) BLOOD UREA 15 MG/DL 7-18 N NITROGEN (test code = BUN) GLOMERULAR >=60 max >60 The Glomerular FILTRATION RATE estimate estGFR Filtratio n Rate is a (test code = GFR) calculated parameterbased on serum Creatinin e, patient age and sex. GFR valuesless than 60 mL/min/1.73 square meters are froy cative ofChronic Kidne y Disease. Values less than 15 mL/min/1.73squa re meters indicate Kidney failure. The calculation for GFR is based on the CK D-EPI (2020) calculat ion. This formulais race indifferent and is the recommended formula for GFR by the National Kidney Foundation for Adults.The GFR will not calculate i f the sex is unknown or if thepatient's ag e is <18 years. CREATININE (test 0.6 MG/DL 0.6-1.0 N code = CREAT) CALCIUM (test code 9.3 MG/DL 8.5-10.1 N = CA) - XR CHEST 1 [id number] 14:33:00 [facility] 1975 Sex: F Name: FLOWER MANN [facility] : 1975 Age/S: 47 / F [address] Unit #: [id number] Loc: [place] [address] Phys: Quan Gamble MD Acct: [id number] Dis Date: Status: PRE [facility] PHONE #: [phone] Exam Date: 03/05/2023 1427 FAX #: Reason: PRE OP EXAMS: CPT: [id number] XR CHEST 1 V 40094 Fluoro Time: DAP (Gy m2): Air Kerma (mGy): Location: [facility] EXAM: - XR CHEST 1 V DATE: 03/05/2023 1:48 PM HISTORY: PRE OP COMPARISON: None FINDINGS: No airspace consolidation or pleural effusions. No pneumothorax.The cardiovascular silhouette is within normal limits. No bony lesions. IMPRESSION: No acute cardiopulmonary abnormality. at 1433 Reported and signed by: Magi You M.D. CC: Mechelle Sánchez MD; Quan Gamble MD PAGE 1 Signed Report Name: FLOWER MANN [facility] : 1975 Age/S: 47 / F [id number] Unit #: [id number] Loc: [place] [address] Phys: Quan Gamble MD Acct: [id number] Dis Date: Status: PRE SDC PHONE #: [phone] Exam Date: 03/05/2023 1429 FAX #: Reason: PRE OP EXAMS: CPT: [id number] XR CHEST 1 V 70553 Fluoro Time: DAP (Gy m2): Air Kerma (mGy): (Continued) Technologist: Bia Sandoval [employer] Date/Time: 03/05/2023 (1432) TonyMOP Orig Print D/T: S: 03/05/2023 (192) PAGE 2 Signed ReportURINALYSIS [id number] 14:28:00 Test Item Value Reference Range Interpretation Comments UA GLUCOSE DIPSTICK (test NEGATIVE mg/dL NEG code = DGLUU) UA BILIRUBIN DIPSTICK (test NEGATIVE mg/dL NEG code = BILU) UA KETONE DIPSTICK (test NEGATIVE mg/dL NEG code = KETU) UA SPECIFIC GRAVITY (test 1.010 SG 1.005-1.030 code = SGU) UA BLOOD DIPSTICK (test NEGATIVE mg/DL NEG code = RIKY) UA PH DIPSTICK (test code = 6.0 pH UNITS 5.0-7.0 DANIEL) UA PROTEIN DIPSTICK (test NEGATIVE mg/dL NEG code = PROU) UA UROBILINIOGEN DIPSTICK 0.2 mg/dL <2.0 (test code = URO) UA NITRITE DIPSTICK (test NEGATIVE SCREEN NEG code = ATILIO) UA LEUKOCYTE ESTERASE NEGATIVE Leuk/mcL NEGATIVE DIPSTICK (test code = LEUU) Urine Specimen Type: Clean CatchUR HCG [id number] 14:28:00 Test Item Value Reference Range Interpretation Comments UR HCG QUAL (test code = HCGQLU) NEGATIVE NEGATIVE Urine Specimen Type: Clean CatchCBC W/AUTO [id number] 14:27:00 Test Item Value Reference Range Interpretation Comments WHITE BLOOD CELL (test code = 12.9 K/mm3 3.5-11.0 H WBC) RED BLOOD CELL (test code = 4.37 M/mm3 4.70-6.10 L RBC) HEMOGLOBIN (test code = HGB) 11.4 G/DL 10.4-14.9 N HEMATOCRIT (test code = HCT) 35.4 % 31.5-44.1 N MEAN CELL VOLUME (test code = 81.0 Fl 84.5-98.6 L MCV) MEAN CELL HGB (test code = MCH) 26.1 pg 27.0-34.2 L MEAN CELL HGB CONCETRATION 32.2 G/DL 31.5-34.0 N (test code = MCHC) RED CELL DISTRIBUTION WIDTH 13.6 SD 11.5-14.5 N (test code = RDW) PLATELET COUNT (test code = 305 K/mm3 150-450 N PLT) MEAN PLATELET VOLUME (test code 10.50 fL 7.0-10.5 N = MPV) NEUTROPHIL % (test code = NT%) 69.6 % 40-76 N IMMATURE GRANULOCYTE % (test 0.4 % 0.0-5.0 N code = IG%) LYMPHOCYTE % (test code = LY%) 21.1 % 20.5-51.1 N MONOCYTE % (test code = MO%) 6.7 % 1.7-9.3 N EOSINOPHIL % (test code = EO%) 1.7 % 0.0-6.0 N BASOPHIL % (test code = BA%) 0.5 % 0.0-2.0 N NUCLEATED RBC % (test code = 0.0 /100WBC% 0.0-1.0 N NRBC%) NEUTROPHIL # (test code = NT#) 9.0 K/mm3 1.8-7.6 H IMMATURE GRANULOCYTE # (test 0.05 x10 3/uL 0.00-0.03 H code = IG#) LYMPHOCYTE # (test code = LY#) 2.7 K/mm3 0.6-3.2 N MONOCYTE # (test code = MO#) 0.9 K/mm3 0.3-1.1 N EOSINOPHIL # (test code = EO#) 0.2 K/mm3 0.0-0.4 N BASOPHIL # (test code = BA#) 0.1 K/mm3 0.0-0.1 N NUCLEATED RBC # (test code = 0.0 K/mm3 0.0-0.1 N NRBC#) MANUAL DIFF REQUIRED (test code NO DIFF/SCN CRITERIA = MDIFF)
[2023-06-28 11:53] LABS: Specific Gravity 1.022 (1.005-1.030); Urine Bilirubin NEGATIVE (Negative); Urine Blood Negative (Negative); Urine Clarity Clear (Clear); Urine Color Light-Yellow (Yellow); Urine Glucose NEGATIVE (Negative); Urine Protein NEGATIVE (Negative); Urine Urobilinogen Normal (Normal)
[2023-06-28 12:04] LABS: Absolute Lymphocytes (CBC) 2.7 K/uL (0.7-4.9); Albumin 3.8 g/dL (3.4-5.0); Bilirubin Total 0.3 mg/dL (0.2-1.0); Hematocrit 36.4 % (36.0-45.0); Lymphocytes % 22.7 % (15.3-44.8); MCV 81.5 fL (80-100); Platelets 278 thou/uL (152-406); Potassium 3.7 mEq/L (3.5-5.1); Protein, Total 8.3 g/dL (6.4-8.2); RBC Red Blood Cell Count 4.47 M/uL (3.86-4.86)
[2023-06-28] MEDS ORDERED: KETOROLAC 30 MG/ML INJ ONE (12:16)
[2023-06-28] MEDS ORDERED: NA CHLORIDE 0.9% 1,000 ML ONE (12:17)
[2023-06-28] MEDS ORDERED: ONDANSETRON 4 MG/2 ML VIAL ONE (12:17)
--- NOTE | 2023-06-28 12:43 | RAD REPORT ---
EXAM DESCRIPTION: CT - Abdomen Pelvis Wo Contrast - 06/28/2023 12:14 pm CLINICAL HISTORY: Abdominal pain COMPARISON: None TECHNIQUE: Computed axial tomography of the abdomen and pelvis was obtained. IV and oral contrast we re not requested. All CT scans are performed using dose optimization technique as appropriate and may include automated exposure control or mA/KV adjustment according to patient size. FINDINGS: The evaluation of solid organs, vessels and bowel is limited secondary to the lack of con trast administration. The liver is enlarged. Fatty infiltration of the liver is present. Calcified granuloma left lower lobe. Spleen, pancreas and right kidney grossly normal. 1 centimeter calculus left kidney. No hydronephrosis. Bilateral adrenal nodules. Hounsfield unit varies from -20 to -40 . A 12 millimeter low-density fatty structure greater omentum probably the sequela of an old infarction . The appendix is normal. There is no evidence of diverticulitis. No adnexal mass Tiny umbilical hernia IMPRESSION: Hepatomegaly with fatty infiltration Nonobstructing left renal calculus Bilateral adrenal masses likely adenomas.
--- NOTE | 2023-06-28 13:07 | ER ---
Nurse's Notes [facility] Name: Anya Mann Age: 47 yrs Sex: Female : 1975 Arrival Date: 06/28/2023 Time: 10:50 Bed 20 Private MD: Diagnosis: Low back pain Presentation: 06/28 11:32 Chief complaint: Patient states: right flank pain since last Wednesday. Coronavirus iw screen: At this time, the client does not indicate any symptoms associated with coronavirus-19. Ebola Screen: Patient negative for fever greater than or equal to 101.5 degrees Fahrenheit, and additional compatible Ebola Virus Disease symptoms Patient denies exposure to infectious person. Patient denies travel to an Ebola-affected area in the 21 days before illness onset. No symptoms or risks identified at this time. Initial Sepsis Screen: Does the patient meet any 2 criteria? Does the patient have a suspected source of infection? No. Patient's initial sepsis screen is negative. Risk Assessment: Do you want to hurt yourself or someone else? Patient reports no desire to harm self or others. 11:32 Method Of Arrival: Ambulatory iw 11:32 Acuity: KIM 3 iw Historical: - Allergies: 11:32 Amoxicillin; iw 11:32 shrimp; iw - PMHx: 11:32 Hypertensive disorder; iw - PSHx: 11:32 section; tubal ligation; iw - Social history:: Smoking status: . Screenin:17 [facility] ED Fall Risk Assessment (Adult) History of falling in the last 3 months, kc6 including since admission No falls in past 3 months (0 pts) Confusion or Disorientation No (0 pts) Intoxicated or Sedated No (0 pts) Impaired Gait No (0 pts) Mobility Assist Device Used No (0 pt) Altered Elimination No (0 pt) Score/Fall Risk Level 0 - 2 = Low Risk. Abuse screen: Denies threats or abuse. Denies injuries from another. Nutritional screening: No deficits noted. Tuberculosis screening: No symptoms or risk factors identified. Assessment: 12:17 General: Appears in no apparent distress. comfortable, Behavior is calm, cooperative, kc6 appropriate for age. Pain: Complains of pain in right low back. Neuro: Level of Consciousness is awake, alert, obeys commands, Oriented to person, place, time, situation, Appropriate for age. Cardiovascular: Capillary refill < 3 seconds. Respiratory: Airway is patent Trachea midline Respiratory effort is even, unlabored, Respiratory pattern is regular, symmetrical. GI: Abdomen is flat, non-distended, Bowel sounds present X 4 quads. Abd is soft and non tender X 4 quads. Reports nausea, vomiting, Patient currently denies abdominal pain, diarrhea. : No signs and/or symptoms were reported regarding the genitourinary system. EENT: No signs and/or symptoms were reported regarding the EENT system. Derm: No signs and/or symptoms reported regarding the dermatologic system. Skin is intact, is healthy with good turgor, Skin is pink, warm \T\ dry. Musculoskeletal: No signs and/or symptoms reported regarding the musculoskeletal system. Circulation, motion, and sensation intact. Capillary refill < 3 seconds, Range of motion: intact in all extremities. 13:20 Reassessment: Patient appears in no apparent distress at this time. No changes from kc6 previously documented assessment. Patient and/or family updated on plan of care and expected duration. Pain level reassessed. Patient is alert, oriented x 3, equal unlabored respirations, skin warm/dry/pink. Vital Signs: 11:30 BP 145 / 86; Pulse 89; Resp 16; Temp 97.1; Pulse Ox 97% on R/A; Pain 5/10; iw 13:20 BP 129 / 97; Pulse 80; Resp 14 S; Pulse Ox 97% on R/A; kc6 11:30 Pain Scale: Adult iw ED Course: 10:55 Patient arrived in ED. mg5 10:57 Garrett Cheng MD is Attending Physician. ec2 11:32 Triage completed. iw 11:33 Arm band placed on. iw 11:41 CBC with Diff Sent. em1 11:41 CMP Sent. em1 11:41 Lipase Sent. em1 11:41 Initial lab(s) drawn, by me, sent to lab. Inserted saline lock: 22 gauge in left wrist, em1 using aseptic technique. Blood collected. 12:01 Vivi Llanes, RN is Primary Nurse. kc6 12:15 Abdomen In Process Unspecified. EDMS 12:17 Patient has correct armband on for positive identification. Bed in low position. Call kc6 light in reach. Side rails up X 1. Client placed on continuous cardiac and pulse oximetry monitoring. NIBP monitoring applied. 13:20 No provider procedures requiring assistance completed. IV discontinued, intact, kc6 bleeding controlled, No redness/swelling at site. Pressure dressing applied. Administered Medications: 12:08 Drug: NS 0.9% IV 1000 ml IV at 1 bolus Per protocol; 1000 mL bolus Route: IV; Rate: 1 kc6 bolus; Site: left hand; 13:19 Follow up: Response: No adverse reaction; IV Status: Completed infusion; IV Intake: kc6 1000ml 12:08 Drug: TORadol - Ketorolac IVP 15 mg IVP once Route: IVP; Site: left hand; kc6 13:20 Follow up: Response: No adverse reaction; Pain is decreased kc6 12:08 Drug: Ondansetron IVP 4 mg IVP once; over 2 minutes Route: IVP; Site: left hand; kc6 13:19 Follow up: Response: No adverse reaction; Nausea is decreased kc6 Medication: 13:21 VIS not applicable for this client. kc6 Intake: 13:19 IV: 1000ml; Total: 1000ml. kc6 Outcome: 13:06 Discharge ordered by . ec2 13:20 Discharged to home ambulatory, kc6 13:20 Condition: improved 13:20 Discharge instructions given to patient, Instructed on discharge instructions, follow up and referral plans. Demonstrated understanding of instructions, follow-up care, 13:21 Patient left the ED. kc6 Signatures: Dispatcher [employer] Beverly Wan RN RN iw Martinez, Eric em1 Vivi Llanes RN RN kc6 Gardner, [place] mg5 Garrett Cheng MD MD ec2
--- NOTE | 2023-06-28 13:07 | EDPHYS ---
Physician Documentation [facility] Name: Anya Mann Age: 47 yrs Sex: Female : 1975 Arrival Date: 06/28/2023 Time: 10:50 Bed 20 Private MD: ED Physician Garrett Cheng HPI: 06/28 11:11 This 47 yrs old Female presents to ER via Unassigned with complaints of ec2 Possible Kidney Stone. 11:11 Patient arrives today due to concern for right lower back pain. States that the pain ec2 has been ongoing for approximately 1 week. States the pain has been progressive and worse over the past week. States that she has a history of kidney stones and this feels similar. States that she grew concerned because she noted some blood in her urine. Patient reports some associated nausea, no fevers or chills. Reports no significant abdominal pain. Reports a history of a hysterectomy and previous . Denies any issues with p.o. intake. . Historical: - Allergies: 11:32 Amoxicillin; iw 11:32 shrimp; iw - PMHx: 11:32 Hypertensive disorder; iw - PSHx: 11:32 section; tubal ligation; iw - Social history:: Smoking status: . ROS: 11:13 Constitutional: as per hpi ec2 Exam: 11:13 Constitutional: GEN: NAD Head: atraumatic Eyes: EOMI Ears: External ears are ec2 normal. CV: regular rate LUNGS: no respiratory distress ABD: non-distended, soft, non-tender, not guarding not rigid SKIN: no evidence of rashes MSK: Right lateral low back tenderness palpation without significant CVA tenderness palpation NEURO: moves all extremities equally Vital Signs: 11:30 BP 145 / 86; Pulse 89; Resp 16; Temp 97.1; Pulse Ox 97% on R/A; Pain 5/10; iw 13:20 BP 129 / 97; Pulse 80; Resp 14 S; Pulse Ox 97% on R/A; kc6 11:30 Pain Scale: Adult iw MDM: 10:57 Patient medically screened. ec2 11:13 ED course: Patient arrives today due to concern for right lateral low back pain. ec2 Examination remarkable for well-appearing nontoxic dividual is otherwise in no acute distress. Will obtain lab work, urine studies as well as CT abdomen pelvis to evaluate for ureteral stone pathology. Currently considering ureteral stone, UTI, musculoskeletal pain.. 12:06 ED course: Level for reassuring CBC, metabolic profile without electrolyte or renal ec2 dysfunction. Lipase within normal ranges. Urine that is noninfectious appearing. . 12:54 ED course: CT abdomen pelvis shows no evidence of ureteral stones, hepatomegaly with ec2 hepatic steatosis noted, nonobstructing left renal calculus noted, bilateral adrenal masses appreciated. . 13:05 ED course: Patient updated regarding her findings on the CT imaging. Ultimately I ec2 suspect patient is having musculoskeletal pain causing her symptoms. I will discharge home, instructed to follow-up with primary care doctor. Return precautions given.. 13:06 Data reviewed: vital signs. ec2 06/28 11:11 Order name: CBC with Diff; Complete Time: 12:06 ec2 06/28 11:11 Order name: CMP; Complete Time: 12:06 ec2 06/28 11:11 Order name: Lipase; Complete Time: 12:06 ec2 06/28 11:11 Order name: Urinalysis w/ reflexes; Complete Time: 12:06 ec2 06/28 12:09 Order name: Abdomen ; Complete Time: 12:53 EDMS 06/28 11:11 Order name: IV Saline Lock; Complete Time: 11:41 ec2 06/28 11:11 Order name: Labs collected and sent; Complete Time: 11:41 ec2 Administered Medications: 12:08 Drug: NS 0.9% IV 1000 ml IV at 1 bolus Per protocol; 1000 mL bolus Route: IV; Rate: 1 kc6 bolus; Site: left hand; 13:19 Follow up: Response: No adverse reaction; IV Status: Completed infusion; IV Intake: kc6 1000ml 12:08 Drug: TORadol - Ketorolac IVP 15 mg IVP once Route: IVP; Site: left hand; kc6 13:20 Follow up: Response: No adverse reaction; Pain is decreased kc6 12:08 Drug: Ondansetron IVP 4 mg IVP once; over 2 minutes Route: IVP; Site: left hand; kc6 13:19 Follow up: Response: No adverse reaction; Nausea is decreased kc6 Disposition Summary: 06/28/23 13:06 Discharge Ordered Notes: Location: Home ec2 Condition: Stable ec2 Diagnosis - Low back pain ec2 Discharge Instructions: - Discharge Summary Sheet ec2 - Acute Back Pain, Adult ec2 Forms: - Medication Reconciliation Form ec2 - Thank You Letter ec2 - Antibiotic Education ec2 - Prescription Opioid Use ec2 - Patient Portal Instructions ec2 - Leadership Thank You Letter ec2 Signatures: Dispatcher [employer] Beverly Wan RN RN iw Vivi Llanes RN RN kc6 Garrett Cheng MD MD ec2 Corrections: (The following items were deleted from the chart) 12:09 11:12 Abdomen Pelvis W Con+CT.RAD.BRZ ordered. EDMS EDMS
== END 2023-06-28 13:21 | disposition home or self-care (01) ==
LOC: ER 10:50
DX: M54.50 Low back pain, unspecified (principal); I10 Essential (primary) hypertension; Z88.1 Allergy status to other antibiotic agents; Z91.013 Allergy to seafood
CPT/HCPCS: 96361; 85025; 36415; 81003; 83690; 80053; 74176; 96375; 96374; 99284; J2405; J7030

== ENCOUNTER 2024-05-12 10:17 | Day surgery (SDC) | payer OTHER ==
[2024-05-10 09:14] LABS: Absolute Basophils 0.1 K/uL (0-0.5); Absolute Eosinophils 0.2 K/uL (0-0.5); Absolute Lymphocytes (CBC) 3.7 K/uL (0.7-4.9); Absolute Monocytes 0.9 K/uL (0.1-1.3); Absolute Neutrophil 7.6 K/uL (1.8-8.0); Basophils % 0.5 % (0-1.3); Eosinophils % 1.8 % (0-4.4); Hematocrit 35.1 % (36.0-45.0); Hemoglobin 11.6 g/dL (12.0-15.0); Lymphocytes % 29.5 % (15.3-44.8); MCH 28.4 pg (27.0-35.0); MCHC 33.1 g/dL (32.0-36.0); MPV 8.4 fL (7.6-11.3); Monocytes % 7.5 % (3.3-12.3); Neutrophils % 60.7 % (41.7-73.7); Nucleated Red Blood Cells % 0.1 % (0-0); Platelets 285 thou/uL (152-406); RBC Red Blood Cell Count 4.08 M/uL (3.86-4.86)
[2024-05-10 09:27] LABS: Anion Gap 11.5 mEq/L (5.0-15.0); Potassium 3.5 mEq/L (3.5-5.1)
--- NOTE | 2024-05-10 12:06 | EKG ---
Test Date: 2024-05-10 Test Time: 08:57:16 Elevator Dispatcher: TOMY MEASUREMENT RESULTS: Intervals: Rate: 61 MT: 176 QRSD: 94 QT: 420 QTc: 422 Pinon: P: 70 MT: 176 QRS: 45 T: 68 INTERPRETIVE STATEMENTS: Normal sinus rhythm Normal ECG Compared to ECG 05/18/2023 11:11:37 No significant changes Electronically Signed On 05-10-24 12:05:37 CDT by Kenny Ontiveros
[2024-05-12] MEDS ORDERED: KETOROLAC 30 MG/ML INJ ONE (11:51)
[2024-05-12] MEDS ORDERED: FENTANYL CITR 100 MCG/2 ML ONE (11:51)
[2024-05-12] MEDS ORDERED: ONDANSETRON 4 MG/2 ML VIAL ONE (11:51)
[2024-05-12] MEDS ORDERED: MIDAZOLAM HCL 2 MG/2 ML INJ ONE (11:51)
[2024-05-12] MEDS ORDERED: propofoL 200 MG/20 ML VIAL IV ONE (11:51)
[2024-05-12] MEDS ORDERED: LIDOCAINE 1% MPF 5 ML VIAL ONE (11:51)
[2024-05-12] MEDS: CLINDAMYCIN 600MG/D5W 50 ML IV ONE (12:15)
[2024-05-12] MEDS: CODEINE 30MG/APAP 300MG TAB ONE (13:40)
[2024-05-12 13:49] VITALS: BP 97/66; TEMP 97.7; O2SAT 98
--- NOTE | 2024-05-12 18:57 | OP ---
Date of Procedure: 05/12/2024 Surgeon: Madi Gaytan MD Preoperative Diagnosis: Left carpal tunnel syndrome. Postoperative Diagnosis: Left carpal tunnel syndrome. Procedure: Left open carpal tunnel release. Estimated Blood Loss: Less than 3 cc. Complications: There were no complications. Specimens: No pathology specimens sent. Indications For Operation: Ms. Mann is a 48-year-old female who has had problems with the right si de in the past and underwent open carpal tunnel release with relief of her symptoms. She also has NC V on the left side, which demonstrated similar findings and requests left open carpal tunnel release. Risks, benefits, and alternatives of this procedure had been discussed with her. She states she un derstands things as presented and wishes to proceed. Description Of Procedure: The patient was taken to the operating room and placed in supine position. General anesthesia was easily obtained by the Anesthesia staff. Following this, a well-padded tour niquet was placed on the superior left arm. Left upper extremity was then prepped and draped in the usual sterile fashion for the procedure. Arm was then elevated, but not exsanguinated. Tourniquet w as raised. A standard incision was made which parallels the thenar crease with a slight ulnar deviat ion at the most distal wrist crease. This was taken down carefully through skin only. Meticulous he mostasis being maintained using bipolar electrocautery. This led down to the palmar fascia, which wa s then divided longitudinally and any obstructions of the transverse carpal ligament were gently move d to the side to allow for full visualization. A small miri was made in the transverse carpal ligame nt revealing the underlying median nerve and carpal tunnel structures. This was then expanded in a p roximal to distal direction until there were no constricting bands. It was then expanded in a distal to proximal direction until there were no constricting bands including a significant amount of volar forearm fascia. Following this, the tourniquet was dropped. There was found to be no significant b leeding and the median nerve was examined and found to be in continuity. At no time were any sharp i nstruments placed outside the direct operative field. The skin was closed using nylon sutures. The patient was placed in a well-padded sterile dressing, and awakened and taken to recovery room in good condition. There were no complications. SE/MODL Voice ID: [id number] Report ID: [id number]
== END 2024-05-12 14:05 | disposition home or self-care (01) ==
LOC: OR 10:17
PROVIDERS: ATTEND Orthopaedic Surgery
PROC: 01N50ZZ Release Median Nerve, Open Approach (ICD-10-PCS; principal; 2024-05-12 11:30)
DX: G56.02 Carpal tunnel syndrome, left upper limb (principal)
CPT/HCPCS: 93005; 85025; 80048; 36415; 64721; J2704; J2001; J2250; J3010; J2405